=== PATIENT | female | born 1955 | race Caucasian/White ===

== ENCOUNTER 2023-04-24 15:55 | Emergency (ER) | payer OTHER, SELFPAY ==
[2023-04-24 16:08] VITALS: BP 175/96; PULSE 106; RESP 18; TEMP 36.3; O2SAT 96; BMI 62.3
[2023-04-24 16:49] LABS: Basophils # 0.1 10^3/uL (0.0-0.1); Basophils % 0.4 %; Eosinophils # 0.1 10^3/uL (0.0-0.8); Hematocrit 43.4 % (36-47); Lymphocytes # 1.3 10^3/uL (0.8-4.8); Lymphocytes % 10.9 %; Mean Corpuscular HGB Conc 30.6 g/dL (30-55); Mean Corpuscular Hemoglobin 26.7 pg (27-33); Mean Corpuscular Volume 87.1 fl (85-98); Mean Platelet Volume 10.2 fL (7.4-10.4); Monocytes # 0.8 10^3/uL (0.2-0.9); Neutrophils # 9.23 10^3/uL (1.8-7.7); Neutrophils % 80.3 %; Nucleated Red Blood Cells % 0 %; Platelet Count 249 10^3/cmm (157-399); Red Blood Count 4.98 10^6/uL (3.85-5.65); Red Cell Distribution Width 17.4 % (12.1-15.1)
[2023-04-24 17:06] LABS: Alanine Aminotransferase 12 U/L (0-33); Albumin Level 3.6 g/dL (3.5-5.2); Alkaline Phosphatase 128 U/L (35-105); Anion Gap 14.5 (5-19); Aspartate Amino Transferase 14 U/L (0-32); Blood Urea Nitrogen 17 mg/dL (8-23); Calcium 9.6 mg/dL (8.5-10.5); Carbon Dioxide 28 mmol/L (22-29); Chloride 101 mmol/L (98-107); Globulin 3.3 g/dL (1.3-4.6); Glomerular Filtration Rate 71.3 mL/min (90-130); Glucose 149 mg/dL (65-115); Osmolality Calculated 292 mOsm/kg (285-295); Potassium 4.5 mmol/L (3.5-5.1); Sodium 139 mmol/L (136-145); Total Bilirubin 0.6 mg/dL (0.15-1.2); Total Protein 6.9 g/dL (6.6-8.7)
[2023-04-24 18:23] LABS: NT Pro B Type Natriuretic Pept 1301 pg/mL (0-125)
--- NOTE | 2023-04-24 19:18 | XRR_ITS ---
PROCEDURE INFORMATION: Exam: XR Chest Exam date and time: 04/24/2023 7:24 PM Age: 68 years old Clinical indication: Other: Ble edema; Additional info: Cough TECHNIQUE: Imaging protocol: Radiologic exam of the chest. Views: 1 view. COMPARISON: No relevant prior studies available. FINDINGS: Lungs: Both lungs demonstrate chronic interstitial coarsening. There is patchy atelectasis involving both lung bases. Pleural spaces: Unremarkable. No pleural effusion. No pneumothorax. Heart/Mediastinum: Prominent cardiomegaly is noted. Bones/joints: Unremarkable. XR/XR chest 1V portable [id number] IMPRESSION: Bibasilar atelectasis with cardiomegaly.
--- NOTE | 2023-04-24 19:46 | USR_ITS ---
PROCEDURE INFORMATION: Exam: US Duplex Lower Extremity Veins, Bilateral Exam date and time: 04/24/2023 8:09 PM Age: 68 years old Clinical indication: Edema, localized; Lower extremity, bilateral; Patient HX: Morbid obesity. C/O chronic bilateral lower extremity edema with gaiter zone pigmentation and skin pustules and sking thickening. ; Additional info: Edema, erythema, pain, noncompliant with anticoagulation TECHNIQUE: Imaging protocol: Real-time duplex ultrasound of the bilateral extremities with 2-D mello scale, color Doppler flow and spectral waveform analysis including responses to compression and other maneuvers (when performed) with image documentation. Complete exam focused on the lower extremity veins. COMPARISON: No relevant prior studies available. FINDINGS: Right deep veins: Unremarkable. The common femoral, femoral, proximal profunda femoral and popliteal veins are patent without thrombus. Normal Doppler waveforms. Normal compressibility and/or augmentation response. Left deep veins: Unremarkable. The common femoral, femoral, proximal profunda femoral and popliteal veins are patent without thrombus. Normal Doppler waveforms. Normal compressibility and/or augmentation response. Superficial veins: Bilateral saphenofemoral junctions are patent without thrombus. Soft tissues: Unremarkable. US/[place] [id number] IMPRESSION: No evidence of deep vein thrombosis.
--- NOTE | 2023-04-24 19:50 | W.ED.EXTPRO ---
HPI - Extremity Problem General: Chief complaint: Extremity Injury, Lower Stated complaint: adechandni sent from dr office Time Seen by Provider: 04/24/23 19:18 History of Present Illness: Patient presents to the ER with complaints of bilateral lower extremity swelling. Patient states she went to her new primary care doctor today and she took 1 look at her legs and sent her over here because they were grossly edematous and cellulitic in appearance. Patient says she is recently gained about 30 pounds over the last 3 weeks. Patient is on Bumex. Patient has not been taking any of her other medicines which includes Eliquis for her A-fib. Patient says she is been out of all of her medicines except her Bumex for approximately 6 months. Patient does states she has been taking her Bumex consistently and it does make her pee however she has been increasingly gaining weight and fluid in her bilateral lower extremities. Review of Systems General: Reports: 10 or more systems reviewed and unremarkable except in HPI and below Physical Exam Const: COMMON NORMALS: no acute distress, average body habitus, patient oriented x3, no limitations, healthy appearing, alert and well nourished HENMT: COMMON NORMALS: normocephalic, atraumatic, hearing grossly normal bilaterally, external ears normal, Normal external nose present, moist oral mucous membranes and oropharynx normal HEAD & SCALP: normocephalic and atraumatic NOSE: Normal external nose present EXTERNAL EAR: Yes external ears normal Neck/C-Spine: COMMON NORMALS: full ROM, no lymphadenopathy, supple, no meningeal signs, no JVD and Thyroid normal THYROID: Thyroid normal Chest: COMMONS NORMALS: normal inspection of the chest and normal palpation of entire chest wall Resp: COMMON NORMALS: normal respiratory effort, No retractions, No use of accessory muscles and clear to auscultation bilaterally AUSCULTATION: clear to auscultation bilaterally Cardio: COMMON NORMALS: no JVD, regular rate, regular rhythm, S1 normal heart sound present, S2 normal heart sound present, No gallops present (Cardio), No clicks present (Cardio), No murmurs present (Cardio) and No rub (Cardio) RATE: regular rate RHYTHM: regular rhythm HEART SOUNDS: S1 normal heart sound present and S2 normal heart sound present GI: COMMON NORMALS: Normal to inspection, nondistended, normoactive bowel sounds present, Soft to palpation, non-tender, No hepatosplenomegaly present and no masses PALPATION: Yes Soft to palpation and Yes No hepatosplenomegaly present Extremity: NARRATIVE EXTREMITY EXAM: Grossly edematous with pitting edema all the way up past her knees, skin is dry scaly and ready in color consistent with extensive peripheral vascular disease skin is not warm to the touch does not give a cellulitic type appearance there is no drainage streaking or blisters. Neuro: COMMON NORMALS: patient oriented x3 SENSORIUM/ORIENTATION: Yes alert MENINGEAL SIGNS: Yes no meningeal signs Course Vital Signs: Vital signs: Vital Signs Temperature 97.4 F L 04/24/23 16:08 Pulse Rate 111 H 04/24/23 21:43 Respiratory Rate 18 04/24/23 16:08 Blood Pressure 187/128 04/24/23 21:43 Pulse Oximetry 94 04/24/23 21:43 Oxygen Delivery Me thod Room Air 04/24/23 21:43 MDM - Extremity (Nontraumatic) Medical Decision Making Patient was evaluated and worked up with lab work included CBC CMP BNP chest x-ray venous Doppler, patient was given 40 mg Lasix p.o. and diuresed quite well. CBC, CMP, magnesium, was all essentially benign. Patient's BNP was slightly elevated at 1301. TSH 5.58, CRP 52.6, chest x-ray showed bibasilar atelectasis venous ultrasound was negative for DVTs. Patient will be placed back on her Eliquis levothyroxine we will add metolazone and metoprolol and she is to continue her Bumex. Patient should follow-up with her family practice physician within the next 7 days for further evaluation and treatment. Differential Diagnosis Likely lower extremity edema; Unlikely herpes zoster, gout, cellulitis, superficial thrombophlebitis, deep venous thrombosis of upper extremity or deep vein thrombosis of lower extremity Medical Records I reviewed the patient's medical records. Lab Data I reviewed the patient's lab results. 04/24/23 16:29 04/24/23 16:29 Radiology Impressions Chest X-Ray 04/24/23 19:18 IMPRESSION: Bibasilar atelectasis with cardiomegaly. Venous Duplex 04/24/23 19:46 IMPRESSION: No evidence of deep vein thrombosis. Laboratory Results WBC 11.50 10^3/uL (3.29-11.43) H 04/24/23 16: RBC 4.98 10^6/uL (3.85-5.65) 04/24/23 16: Hgb 13.30 g/dL (11.27-16.99) 04/24/23 16: Hct 43.4 % (36-47) 04/24/23 16: MCV 87.1 fl (85-98) 04/24/23 16: MCH 26.7 pg (27-33) L 04/24/23 16: MCHC 30.6 g/dL (30-55) 04/24/23 16: RDW 17.4 % (12.1-15.1) H 04/24/23 16: Plt Count 249 10^3/cmm (157-399) 04/24/23 16: MPV 10.2 fL (7.4-10.4) 04/24/23 16: Neut % (Auto) 80.3 % 04/24/23 16: Lymph % (Auto) 10.9 % 04/24/23 16: [place] % (Auto) 7.0 % 04/24/23 16: Eos % (Auto) 1.0 % 04/24/23 16: Baso % (Auto) 0.4 % 04/24/23 16: Neut # (Auto) 9.23 10^3/uL (1.8-7.7) H 04/24/23 16: Lymph # (Auto) 1.3 10^3/uL (0.8-4.8) 04/24/23 16: [place] # (Auto) 0.8 10^3/uL (0.2-0.9) 04/24/23 16: Eos # (Auto) 0.1 10^3/uL (0.0-0.8) 04/24/23 16: Baso # (Auto) 0.1 10^3/uL (0.0-0.1) 04/24/23 16: Nucleated RBC % (auto) 0 % 04/24/23 16: Nucleated RBCs # 0.0 /100WBC 04/24/23 16: Sodium 139 mmol/L (136-145) 04/24/23 16:29 Potassium 4.5 mmol/L (3.5-5.1) 04/24/23 16:29 Chloride 101 mmol/L (98-107) 04/24/23 16:29 Carbon Dioxide 28 mmol/L (22-29) 04/24/23 16:29 Anion Gap 14.5 (5-19) 04/24/23 16:29 BUN 17 mg/dL (8-23) 04/24/23 16:29 Creatinine 0.8 mg/dL (0.5-0.9) 04/24/23 16:29 GFR Calculation 71.3 mL/min (90-130) L 04/24/23 16:29 Glucose 149 mg/dL (65-115) H 04/24/23 16:29 Calculated Osmolality 292 mOsm/kg (285-295) 04/24/23 16:29 Calcium 9.6 mg/dL (8.5-10.5) 04/24/23 16:29 Magnesium 2.1 mg/dL (1.7-2.3) 04/24/23 16:29 Total Bilirubin 0.6 mg/dL (0.15-1.2) 04/24/23 16:29 AST 14 U/L (0-32) 04/24/23 16:29 ALT 12 U/L (0-33) 04/24/23 16:29 Alkaline Phosphatase 128 U/L (35-105) H 04/24/23 16:29 C-Reactive Protein 52.6 mg/L (0.0-4.9) H 04/24/23 16:29 NT-Pro-B Natriuret Pep 1301 pg/mL (0-125) H 04/24/23 16:29 Total Protein 6.9 g/dL (6.6-8.7) 04/24/23 16:29 Albumin 3.6 g/dL (3.5-5.2) 04/24/23 16: Globulin 3.3 g/dL (1.3-4.6) 04/24/23 16:29 TSH 5.58 uIU/mL (0.27-4.20) H 04/24/23 16:29 All radiology interpretation(s) finalized by discharge EKG Data EKG 1: I personally reviewed and interpreted this EKG as follows: EKG interpretation date: 04/24/23 EKG interpretation time: 20:02 Prior EKG tracings: not available for review Interpretation: EKG showed ventricular rate 97 bpm, QRS duration 109, QTc 425, atrial flutter/tachycardia, incomplete right bundle branch block, Discharge Plan Discharge Patient Disposition: Home Clinical Impression: Bilateral edema of lower extremity, Noncompliance with medications Atrial flutter Qualifiers: Atrial flutter type: unspecified Qualified Code(s): I48.92 - Unspecified atrial flutter CHF (congestive heart failure) Qualifiers: Heart failure type: unspecified Heart failure chronicity: chronic Qualified Code(s): I50.9 - Heart failure, unspecified Hypothyroidism Qualifiers: Hypothyroidism type: unspecified Qualified Code(s): E03.9 - Hypothyroidism, unspecified Condition: Stable Prescriptions: New Eliquis 5 mg tablet 5 mg PO BID Qty: 60 0RF levothyroxine 75 mcg tablet 75 mcg PO DAILY Qty: 30 0RF metolazone 5 mg tablet 5 mg PO DAILY Qty: 30 0RF metoprolol succinate 50 mg tablet extended release 24 hr 50 mg PO DAILY Qty: 30 0RF Continued bumetanide 2 mg tablet 4 mg PO QAM Discontinued levothyroxine 75 mcg tablet 75 mcg PO QAM Eliquis 5 mg Tablet 5 mg PO BID No Action atorvastatin 80 mg Tablet 80 mg PO DAILY cetirizine 10 mg tablet 10 mg PO DAILY baclofen 10 mg tablet 10 mg PO BEDTIME albuterol sulfate 90 mcg/actuation Hfa Aerosol Inhaler 2 puff INHALATION Q6H PRN (Reason: Shortness Of Breath) ketoconazole 2 % cream 1 applic TOPICAL BID Flonase 50 mcg/actuation [place],Suspension 1 spray INTRANASAL DAILY Rx Instructions: administer into each nostril Flovent HFA 110 mcg/actuation Hfa Aerosol Inhaler 2 puff INHALATION BID Discharge Orders: Discharge ED (Routine); Ordered 04/24/23 Ordered By: Ned Munoz Referrals: Khanh Catherine MD [Primary Care Provider] - 1 week Patient Instructions: Hypertension, Hypothyroidism, Atrial Flutter (DC), Edema (ED) Activity Restrictions/Additional Instructions: Please take all your medicine as directed. You have 2 new medicines that are metolazone a diuretic and metoprolol a heart rate/blood pressure medicine. Please follow-up with your family practice doctor within the next 7 days for further evaluation and treatment. Coding Level of Care Code ED Pearl Peller for Jeanette Danielson
[2023-04-24 19:56] LABS: C Reactive Protein 52.6 mg/L (0.0-4.9)
[2023-04-24] MEDS: FUROsemide 40 mg Tablet PO (19:57)
--- NOTE | 2023-04-24 20:02 | ECG_ITS ---
[facility] Test Date: 2023-04-24 Pat Name: Odalis Bird Department: Room: Gender: Female Division Supervisor: : 1955 Requested By: Ned Munoz Order Number: [id number] Wai MD: Warner Ibanez M.D. Measurements Intervals [place] Rate: 97 P: 0 MA: 0 QRS: -11 QRSD: 109 T: 242 QT: 370 QTc: 471 Interpretive Statements ATRIAL FLUTTER INCOMPLETE RIGHT BUNDLE BRANCH BLOCK [90+ ms QRS DURATION, TERMINAL R IN V1/V2, 40+ ms S IN I/aVL/V4/V5/V6] POSSIBLE ANTERIOR MYOCARDIAL INFARCTION , OF INDETERMINATE AGE [30 ms Q WAVE IN V3/V4, OR R < 0.2 mV IN V4] MODERATE T-WAVE ABNORMALITY, CONSIDER INFERIOR ISCHEMIA [-0.1+ mV T-WAVE IN II/aVF] No previous ECG available for comparison Electronically Signed On 04-25-2023 18:33:05 SILVERING DEPARTMENT SUPERVISOR by Warner Ibanez M.D. [id number]
[2023-04-24 20:34] LABS: Magnesium 2.1 mg/dL (1.7-2.3); Thyroid Stimulating Hormone 5.58 uIU/mL (0.27-4.20)
[2023-04-24 20:44] VITALS: BP 151/101; PULSE 97; O2SAT 97
[2023-04-24 21:00] VITALS: BP 138/95; PULSE 98; O2SAT 98
[2023-04-24 21:43] VITALS: BP 187/128; PULSE 111; O2SAT 94
[2023-04-24 22:37] VITALS: BP 159/117; PULSE 97; RESP 18; O2SAT 94
[2023-04-24 22:48] VITALS: BP 159/117
[2023-04-24] MEDS: cloNIDine 0.1 mg Tablet 0.2 MG PO (22:48)
== END 2023-04-24 22:54 | disposition home or self-care (01) ==
PROVIDERS: Emergency Medicine; Emergency Provider Emergency Medicine; Family Provider Family Medicine; PCP Family Medicine
DX: R60.0 Localized edema (principal); I48.92 Unspecified atrial flutter; E03.9 Hypothyroidism, unspecified; I50.9 Heart failure, unspecified; Z91.148 Patient's other noncompliance with medication regimen for other reason
CPT/HCPCS: 36415; 71045; 80053; 83735; 83880; 84443; 85025; 86140; 93005; 93970; 99285

== ENCOUNTER → 2023-06-14 10:52 | Outpatient (BNVA) | payer OTHER, SELFPAY | PROVIDERS: Family Provider Family Medicine; PCP Family Medicine; Visit Provider Podiatrist Foot & Ankle Surgery | DX: L60.3 Nail dystrophy (principal); I73.9 Peripheral vascular disease, unspecified; I89.0 Lymphedema, not elsewhere classified | CPT/HCPCS: 11721; 99203 ==

== ENCOUNTER → 2023-10-04 15:58 | Outpatient (BNVA) | payer OTHER, SELFPAY | PROVIDERS: Family Provider Family Medicine; PCP Family Medicine; Visit Provider Internal Medicine Cardiovascular Disease | DX: R06.02 Shortness of breath (principal); R07.9 Chest pain, unspecified; I48.91 Unspecified atrial fibrillation; I11.0 Hypertensive heart disease with heart failure; I50.9 Heart failure, unspecified; I89.0 Lymphedema, not elsewhere classified; E03.9 Hypothyroidism, unspecified; R60.0 Localized edema; F17.200 Nicotine dependence, unspecified, uncomplicated; I45.10 Unspecified right bundle-branch block; R94.31 Abnormal electrocardiogram [ECG] [EKG]; Z68.43 Body mass index [BMI] 50.0-59.9, adult | CPT/HCPCS: 36415; 80048; 83880; 93005; 99205 ==

== ENCOUNTER 2023-10-23 12:47 | Emergency (ER) | payer OTHER, SELFPAY ==
[2023-10-23 12:53] VITALS: BP 128/66; PULSE 71; RESP 17; TEMP 36.8; O2SAT 92; BMI 53.9
--- NOTE | 2023-10-23 13:02 | ED_ITS ---
HPI - Extremity Problem 2 General: Chief complaint: Extremity Problem,Nontraumatic Stated complaint: swollen legs Time Seen by Provider: 10/23/23 13:00 Source: patient Mode of arrival: wheelchair Limitations: no limitations History of Present Illness: Patient is a 68-year-old female with extensive past medical history here for complaints of lymphedema to her bilateral legs. She states they are now weeping and she complains of pain. She has a longstanding history of peripheral vascular disease, venous stasis dermatitis, and lymphedema. She was seen by Dr. Goodman elmore in May with foot complaints. Documentation at that time had recommended lymphedema wraps, elevation, and pneumatic compression devices which she stated she has. Patient tells me she has not been doing these because they do not help . She saw her scientist immunology Dr. Dumont earlier this month. Documentation had recommended possible physical therapy to help with her lymphedema but she has not followed up on this either. Patient is morbidly obese with a weight of almost 300 pounds. She is pretty much non-ambulatory and uses a motorized wheelchair. Can transfer/walk small distances if she holds on to something. She arrives in [facility] with stable vital signs. MD Complaint: extremity pain and extremity swelling Onset (ago): month(s) Pain Consistency: constant Location: left, right and lower extremity Radiation: none Relieving factors: nothing Exacerbating factors: nothing Associated symptoms: Reports no associated symptoms; Deny chest pain or fever(s) Context: immobilization Review of Systems 2 Const: Denies: fever(s), chills, body aches, fatigue or malaise Card: Denies: chest pain Resp: Denies: dyspnea Musc: Reports: extremity pain and extremity swelling; Denies: neck pain or back pain Neuro: Reports: sensory changes (bilateral LE-chronic) and difficulty walking (chronic) PFSH ED 2 PFSH: Family History Mother Stroke Father Stroke Brother Diabetes mellitus, type 2 Cancer Social History Smoking and tobacco/nicotine status: current some day tobacco/nicotine user Adopted: No Number of children: 4 Physical Exam 2 Const: COMMON NORMALS: no acute distress, patient oriented x3, no limitations and alert GENERAL APPEARANCE: cooperative NUTRITIONAL APPEARANCE: obese morbidly obese (BMI is 54.0) Resp: COMMON NORMALS: normal respiratory effort and clear to auscultation bilaterally AUSCULTATION: clear to auscultation bilaterally Cardio: COMMON NORMALS: regular rate and regular rhythm RATE: regular rate RHYTHM: regular rhythm Extremity: COMMON NORMALS: capillary refill normal RIGHT LOWER EXTREMITY: Y es lower leg LEFT LOWER EXTREMITY: Yes lower leg OTHER: pt has significant stage III lymphedema to bilateral lower extremities; she has known PVD with chronic stasis dermatitis changes; skin is ruborous, hypertrophic; she has areas of weeping mainly to left lower leg; there does not appear to be any active infection or cellulitis present Neuro: COMMON NORMALS: patient oriented x3 SENSORIUM/ORIENTATION: Yes alert Course 2 Vital Signs: Vital signs: Vital Signs Temperature 98.2 F 10/23/23 12:53 Pulse Rate 61 10/23/23 14:01 Respiratory Rate 18 10/23/23 14:01 Blood Pressure 135/78 10/23/23 14:01 Pulse Oximetry 93 10/23/23 14:01 Oxygen Delivery Me thod Room Air 10/23/23 14:01 MDM - Extremity (Nontraumatic) Medical Decision Making Patient is a 68-year-old female here for worsening lymphedema to her bilateral lower extremities. She has a longstanding history of this. She has been recommended to use her pneumatic compression devices as well as wrap and elevate the extremities but she does not do any of this. She unfortunately is very sedentary mainly confined to a motorized wheelchair. This is worsened by her morbid obesity and baseline dependent edema. She has been told she has a history of CHF although after meeting with cardiology earlier this month there was no documentation of this. She does states she has an echocardiogram scheduled by them for tomorrow. Clinically she has chronic findings to her legs. There is nothing that appears cellulitic at this time. Her blood work showing a potassium of 2.9. She was 2.7 earlier this month. She states she is taking 1 potassium pill twice daily. Will increase this to 2 tabs twice daily. Her BUN/CR is slightly elevated from labs drawn on 10/03. They were 22/1.0 then. She is 24/1.3 now. She is on several possibly nephrotoxic medications including atorvastatin, bumex, metolazone. I did speak to her scientist immunology Dr. Dumont who felt we could decrease her bumex as her BNP is is only 193 today and has not changed significantly since he saw her. Questions whether she actually does have CHF-ultimately needs the echo tomorrow. Recommend follow up with PCP. I did see about having CM here set her up with physical therapy for lymphedema compressive therapy and wraps. She has also spoken to primary care about home health services to help wrap her legs as well. Do not see any indication for hospitalization at this time. Medical Records I reviewed the patient's medical records. Lab Data I reviewed the patient's lab results. 10/23/23 13:07 10/23/23 13:07 Radiology Impressions Chest X-Ray 10/23/23 13:03 IMPRESSION: 1. Cardiomediastinal silhouette is midline and questionably enlarged, stable. 2. No large focal consolidation. Laboratory Results WBC 14.85 10^3/uL (3.29-11.43) H 10/23/23 13:07 RBC 4.51 10^6/uL (3.85-5.65) 10/23/23 13:07 Hgb 13.10 g/dL (11.27-16.99) 10/23/23 13:07 Hct 40.2 % (36-47) 10/23/23 13:07 MCV 89.1 fl (85-98) 10/23/23 13:07 MCH 29.0 pg (27-33) 10/23/23 13:07 MCHC 32.6 g/dL (30-55) 10/23/23 13:07 RDW 16.6 % (12.1-15.1) H 10/23/23 13:07 Plt Count 342 10^3/cmm (157-399) 10/23/23 13:07 MPV 9.4 fL (7.4-10.4) 10/23/23 13:07 Neut % (Auto) 78.6 % 10/23/23 13:07 Lymph % (Auto) 12.1 % 10/23/23 13:07 [place] % (Auto) 6.4 % 10/23/23 13:07 Eos % (Auto) 1.4 % 10/23/23 13:07 Baso % (Auto) 0.4 % 10/23/23 13:07 Neut # (Auto) 11.66 10^3/uL (1.8-7.7) H 10/23/23 13:07 Lymph # (Auto) 1.8 10^3/uL (0.8-4.8) 10/23/23 13:07 [place] # (Auto) 1.0 10^3/uL (0.2-0.9) H 10/23/23 13:07 Eos # (Auto) 0.2 10^3/uL (0.0-0.8) 10/23/23 13:07 Baso # (Auto) 0.1 10^3/uL (0.0-0.1) 10/23/23 13:07 Nucleated RBC % (auto) 0 % 10/23/23 13:07 Nucleated RBCs # 0.0 /100WBC 10/23/23 13:07 Sodium 133 mmol/L (136-145) L 10/23/23 13:07 Potassium 2.9 mmol/L (3.5-5.1) L 10/23/23 13:07 Chloride 89 mmol/L (98-107) L 10/23/23 13:07 Carbon Dioxide 30 mmol/L (22-29) H 10/23/23 13:07 Anion Gap 16.9 (5-19) 10/23/23 13:07 BUN 24 mg/dL (8-23) H 10/23/23 13:07 Creatinine 1.3 mg/dL (0.5-0.9) H 10/23/23 13:07 GFR Calculation 40.7 mL/min (90-130) L 10/23/23 13:07 Glucose 121 mg/dL (65-115) H 10/23/23 13:07 Calculated Osmolality 281 mOsm/kg (285-295) L 10/23/23 13:07 Calcium 9.7 mg/dL (8.5-10.5) 10/23/23 13:07 Total Bilirubin 0.2 mg/dL (0.15-1.2) 10/23/23 13:07 AST 12 U/L (0-32) 10/23/23 13:07 ALT 12 U/L (0-33) 10/23/23 13:07 Alkaline Phosphatase 116 U/L (35-105) H 10/23/23 13:07 C-Reactive Protein 68.9 mg/L (0.0-4.9) H 10/23/23 13:07 NT-Pro-B Natriuret Pep 193 pg/mL (0-125) H 10/23/23 13:07 Total Protein 7.7 g/dL (6.6-8.7) 10/23/23 13:07 Albumin 3.5 g/dL (3.5-5.2) 10/23/23 13:07 Globulin 4.2 g/dL (1.3-4.6) 10/23/23 13:07 All radiology interpretation(s) finalized by discharge Discharge Plan Discharge Patient Disposition: Home Clinical Impression: Stasis dermatitis, Lymphedema Condition: Stable Prescriptions: Continued bumetanide 2 mg tablet 4 mg PO QAM Qty: 20 0RF Changed potassium chloride 20 mEq tablet extended release 40 meq PO BID MDD 100 mEq Qty: 60 0RF No Action atorvastatin 80 mg Tablet 80 mg PO DAILY cetirizine 10 mg tablet 10 mg PO DAILY baclofen 10 mg tablet 10 mg PO BEDTIME albuterol sulfate 90 mcg/actuation Hfa Aerosol Inhaler 2 puff INHALATION Q6H PRN (Reason: Shortness Of Breath) Flonase 50 mcg/actuation [place],Suspension 1 spray INTRANASAL DAILY Rx Instructions: administer into each nostril Flovent HFA 110 mcg/actuation Hfa Aerosol Inhaler 2 puff INHALATION BID Eliquis 5 mg tablet 5 mg PO BID Qty: 60 0RF levothyroxine 75 mcg tablet 75 mcg PO DAILY Qty: 30 0RF metolazone 5 mg tablet 5 mg PO DAILY Qty: 30 0RF metoprolol succinate 50 mg tablet extended release 24 hr 50 mg PO DAILY Qty: 30 0RF Discharge Orders: Discharge ED (Routine); Ordered 10/23/23 Ordered By: Nova Jackson Referrals: Khanh Catherine MD [Primary Care Provider] - Patient Instructions: Lymphedema, Leg Edema (ED) Activity Restrictions/Additional Instructions: As we discussed I will try to have case management work on getting you set up with physical therapy for lymphedema compression therapy and wraps. You can also continue to speak to your primary care provider about home health services. As we discussed I would like you to decrease your Bumex from 4 Mg daily to 2 Mg daily. I am also increasing your potassium. You need to follow-up with primary care next week so they can repeat your kidney functions and potassium. You stated you have an echocardiogram scheduled for tomorrow that was ordered by Dr. Dumont for evaluation of CHF. I recommend you get this exam completed. Coding Level of Care Code ED Chucking Machine Set Up Operator for Jeaentte Danielson
--- NOTE | 2023-10-23 13:03 | XRR_ITS ---
PROCEDURE INFORMATION: Exam: XR Chest Exam date and time: 10/23/2023 1:10 PM Age: 68 years old Clinical indication: Other: Ble edema; Additional info: Leg swelling TECHNIQUE: Imaging protocol: Radiologic exam of the chest. Views: 1 view. COMPARISON: CR XR chest 1V portable [id number] 04/24/2023 7:24 PM FINDINGS: Lungs: No large focal consolidation. Pleural spaces: No large pleural effusion. No distinct pneumothorax. Heart/Mediastinum: Cardiomediastinal silhouette is midline and questionably enlarged, stable. Vasculature: Mild calcific disease of the aorta. Bones/joints: No acute osseous findings. XR/XR chest 1V portable [id number] IMPRESSION: 1. Cardiomediastinal silhouette is midline and questionably enlarged, stable. 2. No large focal consolidation.
[2023-10-23 13:12] LABS: Basophils # 0.1 10^3/uL (0.0-0.1); Basophils % 0.4 %; Eosinophils # 0.2 10^3/uL (0.0-0.8); Eosinophils % 1.4 %; Hematocrit 40.2 % (36-47); Lymphocytes # 1.8 10^3/uL (0.8-4.8); Lymphocytes % 12.1 %; Mean Corpuscular HGB Conc 32.6 g/dL (30-55); Mean Corpuscular Volume 89.1 fl (85-98); Mean Platelet Volume 9.4 fL (7.4-10.4); Monocytes % 6.4 %; Neutrophils # 11.66 10^3/uL (1.8-7.7); Neutrophils % 78.6 %; Nucleated Red Blood Cells % 0 %; Platelet Count 342 10^3/cmm (157-399); Red Blood Count 4.51 10^6/uL (3.85-5.65); Red Cell Distribution Width 16.6 % (12.1-15.1); White Blood Count 14.85 10^3/uL (3.29-11.43)
[2023-10-23 13:40] LABS: Alanine Aminotransferase 12 U/L (0-33); Albumin Level 3.5 g/dL (3.5-5.2); Alkaline Phosphatase 116 U/L (35-105); Anion Gap 16.9 (5-19); Aspartate Amino Transferase 12 U/L (0-32); Blood Urea Nitrogen 24 mg/dL (8-23); Calcium 9.7 mg/dL (8.5-10.5); Carbon Dioxide 30 mmol/L (22-29); Chloride 89 mmol/L (98-107); Creatinine Clr Calc Pharmacy 54.6511; Globulin 4.2 g/dL (1.3-4.6); Glomerular Filtration Rate 40.7 mL/min (90-130); Glucose 121 mg/dL (65-115); NT Pro B Type Natriuretic Pept 193 pg/mL (0-125); Osmolality Calculated 281 mOsm/kg (285-295); Sodium 133 mmol/L (136-145); Total Bilirubin 0.2 mg/dL (0.15-1.2); Total Protein 7.7 g/dL (6.6-8.7)
[2023-10-23 13:42] LABS: Potassium 2.9 mmol/L (3.5-5.1)
[2023-10-23] MEDS: potassium chloride ER 20 mEq Tablet 40 MEQ PO (14:00)
[2023-10-23 14:01] VITALS: BP 135/78; PULSE 61; RESP 18; O2SAT 93
[2023-10-23 14:01] LABS: C Reactive Protein 68.9 mg/L (0.0-4.9)
--- NOTE | 2023-10-23 14:12 | DCPLANNER ---
sent message to PT for er f/u
[2023-10-23 14:46] VITALS: BP 141/70; PULSE 61; RESP 18; O2SAT 91
--- NOTE | 2023-10-23 14:46 | PC.NURSE ---
Per provider, abd pads to the left leg x 2 and wrapped bilat legs with 6in prashant wraps.
== END 2023-10-23 14:49 | disposition home or self-care (01) ==
PROVIDERS: Emergency Medicine; Emergency Provider Physician Assistant; PCP Family Medicine
DX: I89.0 Lymphedema, not elsewhere classified (principal); I87.2 Venous insufficiency (chronic) (peripheral); Z79.01 Long term (current) use of anticoagulants; Z72.0 Tobacco use
CPT/HCPCS: 36415; 71045; 80053; 83880; 85025; 86140; 99284

== ENCOUNTER → 2023-11-06 14:33 | Outpatient (BNVA) | payer MEDICARE, SELFPAY | PROVIDERS: PCP Family Medicine; Visit Provider Internal Medicine Critical Care Medicine | DX: I10 Essential (primary) hypertension (principal) | CPT/HCPCS: 36415; 80048 ==

== ENCOUNTER 2023-12-21 11:37 | Outpatient (CLI) | payer MEDICARE, SELFPAY ==
--- NOTE | 2023-12-21 12:15 | USCV_ITS ---
Odalis Bird Age: 68 Gender: F : 1955 Exam Date: 12/21/2023 11:51 Ordering Phys: Alin Dumont MD ([email or web address]) Technologist: Klarissa Cool [place] [facility] [place]: SOB and question of Murmur BP: / HR: 62 Rhythm: Sinus Technical Quality: Very technically difficult study, Poor because of body habitus MEASUREMENTS (Male / Female) Normal Values 2D ECHO LV Diastolic Diameter PLAX 4.0 cm 4.2 - 5.9 / 3.9 - 5.3 cm IVS Diastolic Thickness 1.4 cm 0.6 - 1.0 / 0.6 - 0.9 cm IVS Systolic Thickness 2.6 cm LVPW Diastolic Thickness 1.4 cm 0.6 - 1.0 / 0.6 - 0.9 cm LVPW Systolic Thickness 1.5 cm LVOT Diameter 2.2 cm LV Ejection Fraction 2D Teich 31.5 % LV Ejection Fraction MOD 4C 50.7 % LA Diameter 2.8 cm RA Systolic Volume 4C AL 97.5 ml RA Systolic Volume 4C MOD 90.0 ml LA Sys Volume AL 32.9 cm cubed LA Sys Volume Index AL 13.1 cm cubed/m squared Aorta at Sinotubular Diameter 3.3 cm IVC Diameter 1.5 cm M-MODE LA Ao Ratio MM 0.9 AV Cusp Separation MM 1.9 cm DOPPLER AV Peak Velocity 153.7 cm/s LVOT Peak Velocity 81.0 cm/s AV Area Cont Eq vti 2.0 cm squared AV Area Cont Eq pk 2.0 cm squared MV Area PHT 5.8 cm squared Mitral E to A Ratio 0.9 TV Peak Velocity 155.3 cm/s TR Peak Velocity 183.0 cm/s TR Peak Gradient 13.4 mmHg TR Mean Velocity 121.0 cm/s TR Mean Gradient 6.9 mmHg TR Velocity Time Integral 45.7 cm TV Peak E Velocity 77.0 cm/s Right Atrial Pressure 3.0 mmHg Pulmonary Artery Systolic Pressu 16.4 mmHg FINDINGS Left Ventricle Normal left ventricular size and systolic function, EF 65%, visual.moderate left ventricular hypertrophy. Right Ventricle Possibly of normal size and ejection fraction Right Atrium Right atrium not well visualized. Left Atrium Possibly of normal size Mitral Valve Trace to mild mitral valve regurgitation. Aortic Valve Aortic valve not well visualized. Tricuspid Valve Tricuspid valve not well visualized. Pulmonic Valve Mild pulmonary valve regurgitation. Pericardium Echo-free space anteriorly, suggesting pericardial fat pad/loculated pericardial effusion Aorta Normal aortic annulus size. IVC Normal inferior vena cava. CONCLUSIONS Normal left ventricular size and systolic function, EF 65%,( visual).. Moderate left ventricular hypertrophy. Mild pulmonary valve regurgitation. Echo-free space anteriorly, suggesting pericardial fat pad/loculated pericardial effusion Possibly normal RV size and ejection fraction. Technically very difficult study because of poor ultrasonic windows Dr Alin Dumont MD FACC (Electronically Signed) Final Date: 29 December 2023 11:23 S
== END 2023-12-21 11:38 | disposition home or self-care (01) ==
LOC: RAD 11:38
PROVIDERS: PCP Nurse Practitioner; Visit Provider Internal Medicine Cardiovascular Disease
DX: I51.7 Cardiomegaly (principal); E65 Localized adiposity; R06.09 Other forms of dyspnea
CPT/HCPCS: 93306

== ENCOUNTER 2024-01-03 13:51 | Outpatient (CLI) | payer MEDICARE, SELFPAY ==
[2024-01-03 14:09] VITALS: PULSE 65; RESP 18; O2SAT 95
[2024-01-03] MEDS: albuterol 2.5 mg/3 mL Neb INHALATION (14:09)
[2024-01-03 14:13] VITALS: PULSE 71
== END 2024-01-03 13:52 | disposition home or self-care (01) ==
PROVIDERS: PCP Nurse Practitioner; Visit Provider Internal Medicine Critical Care Medicine
DX: R06.09 Other forms of dyspnea (principal); J98.4 Other disorders of lung; E66.9 Obesity, unspecified; J44.9 Chronic obstructive pulmonary disease, unspecified; F17.200 Nicotine dependence, unspecified, uncomplicated; I11.0 Hypertensive heart disease with heart failure; I50.9 Heart failure, unspecified; I48.91 Unspecified atrial fibrillation; I48.92 Unspecified atrial flutter; I87.2 Venous insufficiency (chronic) (peripheral); E66.01 Morbid (severe) obesity due to excess calories; Z68.43 Body mass index [BMI] 50.0-59.9, adult; R94.31 Abnormal electrocardiogram [ECG] [EKG]
CPT/HCPCS: 94060; 94729; 99214

== ENCOUNTER 2024-03-13 17:08 | Inpatient (IN) | payer MEDICARE, SELFPAY ==
[2024-03-13 17:19] VITALS: BP 146/83; PULSE 63; RESP 16; TEMP 36.5; O2SAT 94; BMI 52.1
--- NOTE | 2024-03-13 19:21 | XRR_ITS ---
PROCEDURE INFORMATION: Exam: XR Right Tibia and Fibula Exam date and time: 03/13/2024 7:34 PM Age: 69 years old Clinical indication: Other: Cellulitits; Additional info: Cellulitis TECHNIQUE: Imaging protocol: Radiologic exam of the right tibia and fibula. Views: 2 views. COMPARISON: No relevant prior studies available. FINDINGS: Bones/joints: Normal. Soft tissues: Normal. XR/XR tibia fibula RT 2V 07004 IMPRESSION: No acute findings.
--- NOTE | 2024-03-13 19:25 | ED_ITS ---
HPI - Skin/Abscess/Foreign Bdy 2 General: Chief complaint: Skin/Abscess/Foreign Body Stated complaint: rt leg infection Time Seen by Provider: 03/13/24 19:14 Source: patient Mode of arrival: ambulatory Limitations: no limitations History of Present Illness: 69-year-old female who is wheelchair-celeste nd states she has had a wound ongoing to her right leg for the last 3 to 4 weeks states she has had no treatment for it is worsened since been having a foul odor she denies any fever states she has been having some increasing pain has not been on any antibiotics for it. Associated symptoms: Deny chills, fever(s), nausea or vomiting Related Data Home Medications Medication Instructions Recorded Confirmed albuterol sulfate 90 mcg/actuation 2 puff inhalation Q6H PRN 04/24/23 11/06/23 aerosol inhaler Shortness Of Breath atorvastatin 80 mg tablet 80 mg PO DAILY 04/24/23 11/06/23 baclofen 10 mg tablet 10 mg PO BEDTIME 04/24/23 11/06/23 fluticasone propionate 110 2 puff inhalation BID 04/24/23 11/06/23 mcg/actuation HFA aerosol inhaler (Flovent HFA) bumetanide 2 mg tablet 2 mg PO QAM 11/06/23 cetirizine 10 mg tablet 10 mg PO DAILY PRN 11/06/23 11/06/23 fluticasone propionate 50 1 spray intranasal DAILY PRN 11/06/23 11/06/23 mcg/actuation nasal spray,suspension Previous Rx's Medication Instructions Recorded apixaban 5 mg tablet (Eliquis) 5 mg PO BID #60 tabs 04/24/23 levothyroxine 75 mcg tablet 75 mcg PO DAILY #30 tabs 04/24/23 metolazone 5 mg tablet 5 mg PO DAILY #30 tabs 04/24/23 metoprolol succinate 50 mg 50 mg PO DAILY #30 tabs 04/24/23 tablet,extended release 24 hr omeprazole 40 mg capsule,delayed 40 mg PO DAILY GERD #30 caps 11/06/23 release Allergies Allergy/AdvReac Type Severity Reaction Status Date / Time aspirin Allergy ALGY-Anaphy Verified 01/03/24 14:51 laxis nicotine Allergy ALGY-Rash Verified 01/03/24 14:51 Penicillins Allergy ALGY-Rash Verified 01/03/24 14:51 procaine [From Novocain] Allergy ADR-Halluci Verified 01/03/24 14:51 lambert Review of Systems 2 Const: Denies: fever(s), chills, body aches or change in appetite ENMT: Denies: throat pain or dental pain Card: Denies: chest pain Resp: Denies: dyspnea GI: Denies: abdominal pain, nausea, vomiting or diarrhea Musc: Reports: extremity pain and extremity swelling; Denies: neck pain or back pain Skin/Breast: Reports: erythema; Denies: rash Neuro: Denies: headache(s) PFSH ED 2 PFSH: Family History Mother Stroke Aneurysm Father Stroke Brother Diabetes mellitus, type 2 Cancer Social History Smoking and tobacco/nicotine status: current every day tobacco/nicotine user (0.5 ppd) cigarettes Packs smoked per day: 1 Years cigarettes smoked: 55 [ Other cigarette details: Started at age 13] Adopted: No Number of children: 4 Physical Exam 2 Const: COMMON NORMALS: no acute distress, patient oriented x3 and healthy appearing HENMT: COMMON NORMALS: normocephalic and atraumatic HEAD & SCALP: n ormocephalic and atraumatic Neck/C-Spine: COMMON NORMALS: full ROM and supple Chest: COMMONS NORMALS: normal inspection of the chest Resp: COMMON NORMALS: normal respiratory effort, No retractions, No use of accessory muscles and clear to auscultation bilaterally AUSCULTATION: clear to auscultation bilaterally Cardio: COMMON NORMALS: regular rate, regular rhythm and No murmurs present (Cardio) RATE: regular rate RHYTHM: regular rhythm Extremity: NARRATIVE EXTREMITY EXAM: Cellulitis noted over right leg with wound with foul-smelling drainage Neuro: COMMON NORMALS: patient oriented x3, moves all extremities and no focal motor deficits Psych: COMMON NORMALS: mental status grossly normal, Normal thought process present and cooperative THOUGHT PROCESS: Normal thought process present Skin: COMMON NORMALS: no rashes or lesions noted and no wounds GENERAL SKIN EXAM: no rashes or lesions noted Course 2 Vital Signs: Vital signs: Vital Signs Temperature 97.7 F 03/13/24 17:19 Pulse Rate 63 03/13/24 17:19 Respiratory Rate 16 03/13/24 17:19 Blood Pressure 146/83 03/13/24 17:19 Pulse Oximetry 94 03/13/24 17:19 Oxygen Delivery Me thod Room Air 03/13/24 17:19 MDM - Skin/Abscess/Foreign Bdy Medicial Decision Making Patient presents here with cellulitis to her right lower leg superficial wound patient was seen in the ER by podiatry Dr. Mahoney will admit on IV antibiotics Medical Records I reviewed the patient's medical records. Lab Data I reviewed the patient's lab results. 03/13/24 20:10 03/13/24 20:10 Laboratory Results WBC 11.09 10^3/uL (3.29-11.43) 03/13/24 20:10 RBC 4.11 10^6/uL (3.85-5.65) 03/13/24 20:10 Hgb 10.80 g/dL (11.27-16.99) L 03/13/24 20:10 Hct 35.5 % (36-47) L 03/13/24 20:10 MCV 86.4 fl (85-98) 03/13/24 20:10 MCH 26.3 pg (27-33) L 03/13/24 20:10 MCHC 30.4 g/dL (30-55) 03/13/24 20:10 RDW 17.2 % (12.1-15.1) H 03/13/24 20:10 Plt Count 304 10^3/cmm (157-399) 03/13/24 20:10 MPV 9.0 fL (7.4-10.4) 03/13/24 20:10 Neut % (Auto) 75.4 % 03/13/24 20:10 Lymph % (Auto) 14.3 % 03/13/24 20:10 [place] % (Auto) 6.5 % 03/13/24 20:10 Eos % (Auto) 2.4 % 03/13/24 20:10 Baso % (Auto) 0.4 % 03/13/24 20:10 Neut # (Auto) 8.36 10^3/uL (1.8-7.7) H 03/13/24 20:10 Lymph # (Auto) 1.6 10^3/uL (0.8-4.8) 03/13/24 20:10 [place] # (Auto) 0.7 10^3/uL (0.2-0.9) 03/13/24 20:10 Eos # (Auto) 0.3 10^3/uL (0.0-0.8) 03/13/24 20:10 Baso # (Auto) 0.0 10^3/uL (0.0-0.1) 03/13/24 20:10 Nucleated RBC % (auto) 0 % 03/13/24 20:10 Nucleated RBCs # 0.0 /100WBC 03/13/24 20:10 ESR 72 mm/hr (0-15) H 03/13/24 20:10 Sodium 140 mmol/L (136-145) 03/13/24 20:10 Potassium 3.6 mmol/L (3.5-5.1) 03/13/24 20:10 Chloride 97 mmol/L (98-107) L 03/13/24 20:10 Carbon Dioxide 30 mmol/L (22-29) H 03/13/24 20:10 Anion Gap 16.6 (5-19) 03/13/24 20:10 BUN 7 mg/dL (8-23) L 03/13/24 20:10 Creatinine 0.9 mg/dL (0.5-0.9) 03/13/24 20:10 GFR Calculation 62.1 mL/min (90-130) L 03/13/24 20:10 Glucose 154 mg/dL (65-115) H 03/13/24 20:10 Calculated Osmolality 291 mOsm/kg (285-295) 03/13/24 20:10 Calcium 8.9 mg/dL (8.5-10.5) 03/13/24 20:10 Total Bilirubin 0.3 mg/dL (0.15-1.2) 03/13/24 20:10 AST 12 U/L (0-32) 03/13/24 20:10 ALT 9 U/L (0-33) 03/13/24 20:10 Alkaline Phosphatase 118 U/L (35-105) H 03/13/24 20:10 C-Reactive Protein 71.9 mg/L (0.0-4.9) H 03/13/24 20:10 Total Protein 6.3 g/dL (6.6-8.7) L 03/13/24 20:10 Albumin 3.3 g/dL (3.5-5.2) L 03/13/24 20:10 Globulin 3.0 g/dL (1.3-4.6) 03/13/24 20:10 All radiology interpretation(s) finalized by discharge Discharge Plan Discharge Patient Disposition: Admitted As Inpatient Clinical Impression: Cellulitis of leg, right Condition: Stable Prescriptions: No Action bumetanide 2 mg tablet 2 mg PO QAM omeprazole 40 mg capsule,delayed release(DR/EC) 40 mg PO DAILY Qty: 30 1RF atorvastatin 80 mg Tablet 80 mg PO DAILY baclofen 10 mg tablet 10 mg PO BEDTIME albuterol sulfate 90 mcg/actuation Hfa Aerosol Inhaler 2 puff INHALATION Q6H PRN (Reason: Shortness Of Breath) Flovent HFA 110 mcg/actuation Hfa Aerosol Inhaler 2 puff INHALATION BID Eliquis 5 mg tablet 5 mg PO BID Qty: 60 0RF levothyroxine 75 mcg tablet 75 mcg PO DAILY Qty: 30 0RF metolazone 5 mg tablet 5 mg PO DAILY Qty: 30 0RF metoprolol succinate 50 mg tablet extended release 24 hr 50 mg PO DAILY Qty: 30 0RF cetirizine 10 mg tablet 10 mg PO DAILY PRN fluticasone propionate 50 mcg/actuation spray,suspension 1 spray INTRANASAL DAILY PRN Rx Instructions: administer into each nostril Referrals: Sherrell Lakhani FNP [Primary Care Provider] - Patient Instructions: Opioid Safety, Pain Management Coding Level of Care Code ED Paleology Teacher for Jeanette Danielson
[2024-03-13 19:30] VITALS: BP 102/79; PULSE 79; RESP 16; O2SAT 96
[2024-03-13] MEDS: VANCOMYCIN ADD-Vantage 1,000 MG in 0.9% NaCl ADD-Vantage 250 ML 250 MG IV (20:15)
[2024-03-13 20:23] LABS: Basophils % 0.4 %; Eosinophils # 0.3 10^3/uL (0.0-0.8); Eosinophils % 2.4 %; Hematocrit 35.5 % (36-47); Lymphocytes # 1.6 10^3/uL (0.8-4.8); Lymphocytes % 14.3 %; Mean Corpuscular HGB Conc 30.4 g/dL (30-55); Mean Corpuscular Hemoglobin 26.3 pg (27-33); Mean Corpuscular Volume 86.4 fl (85-98); Monocytes # 0.7 10^3/uL (0.2-0.9); Monocytes % 6.5 %; Neutrophils # 8.36 10^3/uL (1.8-7.7); Neutrophils % 75.4 %; Nucleated Red Blood Cells % 0 %; Platelet Count 304 10^3/cmm (157-399); Red Blood Count 4.11 10^6/uL (3.85-5.65); Red Cell Distribution Width 17.2 % (12.1-15.1); White Blood Count 11.09 10^3/uL (3.29-11.43)
[2024-03-13 20:30] VITALS: BP 121/76; PULSE 72; RESP 14; O2SAT 94
--- NOTE | 2024-03-13 20:41 | P.CONIM_ITS ---
Providers/Reason For Consult 2 Consulting Physician/Specialty*: Cindy Zeng.P.M./podiatry Reason for Consult*: Venous stasis/cellulitis Primary Care Provider: URVASHI Galeas History of Present Illness History of Present Illness Odalis Bird is a 69 year old female with history of bilateral lower extremity lymphedema, peripheral vascular disease, stasis dermatitis will also has a history of noncompliance with keeping appointments. Patient states that she does have a history of lymphedema and has received segmental compression devices for bilateral lower extremities. She does not use these at home as she states that her legs are too large for them to fit into. She does not keep up on regular compression therapy at home. She states that approximate 3 to 4 weeks ago that her right leg developed a wound which began to drain and has become increasingly more painful over the course of the past few weeks. She states that once it started to drain they tried to apply compression wraps to no avail. Patient states that the redness and drainage has increased as well as slight odor. Podiatry was consulted to evaluate and provide recommendations. Patient denies any recent constitutional symptoms including nausea or vomiting. Patient is asking about getting a sandwich. Accompanied by son. Review of Systems 2 General: Reports: 10 or more systems reviewed and unremarkable except in HPI and below Const: Denies: fever(s), chills, body aches or change in appetite Eyes: Denies: change in vision or blurry vision Card: Denies: chest pain, palpitations or irregular heart rhythm Resp: Denies: dyspnea GI: Denies: abdominal pain, nausea, vomiting or diarrhea Musc: Reports: joint stiffness Skin/Breast: Reports: non-healing lesions and lesions Neuro: Reports: numbness in extremities Medications/Allergies Home Medications Medication Instructions Recorded Confirmed Last Taken Type albuterol sulfate 90 mcg/actuation 2 puff inhalation Q6H PRN 04/24/23 11/06/23 Unknown History aerosol inhaler Shortness Of Breath apixaban 5 mg tablet (Eliquis) 5 mg PO BID #60 tabs 04/24/23 11/06/23 Unknown Rx atorvastatin 80 mg tablet 80 mg PO DAILY 04/24/23 11/06/23 Unknown History baclofen 10 mg tablet 10 mg PO BEDTIME 04/24/23 11/06/23 Unknown History fluticasone propionate 110 2 puff inhalation BID 04/24/23 11/06/23 Unknown History mcg/actuation HFA aerosol inhaler (Flovent HFA) levothyroxine 75 mcg tablet 75 mcg PO DAILY #30 tabs 04/24/23 11/06/23 Unknown Rx metolazone 5 mg tablet 5 mg PO DAILY #30 tabs 04/24/23 11/06/23 Unknown Rx metoprolol succinate 50 mg 50 mg PO DAILY #30 tabs 04/24/23 11/06/23 Unknown Rx tablet,extended release 24 hr bumetanide 2 mg tablet 2 mg PO QAM 11/06/23 Unknown History cetirizine 10 mg tablet 10 mg PO DAILY PRN 11/06/23 11/06/23 Unknown History fluticasone propionate 50 1 spray intranasal DAILY PRN 11/06/23 11/06/23 Unknown History mcg/actuation nasal spray,suspension omeprazole 40 mg capsule,delayed 40 mg PO DAILY GERD #30 caps 11/06/23 11/06/23 Unknown Rx release Allergies Allergy/AdvReac Type Severity Reaction Status Date / Time aspirin Allergy ALGY-Anaphy Verified 01/03/24 14:51 laxis nicotine Allergy ALGY-Rash Verified 01/03/24 14:51 Penicillins Allergy ALGY-Rash Verified 01/03/24 14:51 procaine [From Novocain] Allergy ADR-Halluci Verified 01/03/24 14:51 nating PFSH Acute 2 PFSH: Family History Mother Stroke Aneurysm Father Stroke Brother Diabetes mellitus, type 2 Cancer Social History Smoking and tobacco/nicotine status: current every day tobacco/nicotine user (0.5 ppd) cigarettes Packs smoked per day: 1 Years cigarettes smoked: 55 [ Other cigarette details: Started at age 13] Adopted: No Number of children: 4 Vitals/I&O/Wt Last Vital Signs Temp 97.7 F 03/13/24 17:19 Pulse 63 03/13/24 17:19 Resp 16 03/13/24 17:19 BP 146/83 03/13/24 17:19 Pulse Ox 94 03/13/24 17:19 O2 Del Method Room Air 03/13/24 17:19 03/13/24 03/13/24 03/13/24 06:59 14:59 22:59 Intake Total 0 / 0 Balance 0 / 0 Weight last 48 hrs Weight 285 lb Physical Exam 2 Narrative: BELOW IS A FOCUSED LOWER EXTREMITY EXAM GENERAL: A&O x 3 VASCULAR: DP/PT pulses nonpalpable due to lower extremity habitus and extent of lymphedema DERMATOLOGICAL: Stasis dermatitis changes bilateral lower extremities right worse than left. Active serous drainage to right lower extremity posteriorly with macerated changes to stasis dermatitis. No full-thickness ulceration appreciated. MUSCULOSKELETAL: Morbidly obese. Tenderness with palpation of right posterior leg NEUROLOGICAL: Neurological sensation to the affected foot and ankle is present through L4-S1 dermatomes with no hyper/hypoesthesias, negative Tinel or Valleix's sign IMAGING: Tib-fib x-rays right lower extremity failed to show subcutaneous emphysema or any evidence of osteomyelitis Data 03/13/24 20:10 03/13/24 20:10 Micro: Microbiology 03/13/24 20:10 Blood Culture - Preliminary Blood SPECIMEN COLLECTED 03/13/24 20:13 Blood Culture - Preliminary Blood SPECIMEN COLLECTED A&P Assessment and plan (1) Lymphedema: (2) Stasis dermatitis: (3) Cellulitis: Plan -Bilateral lower extremity lymphedema/stasis dermatitis/cellulitis -Labs and vitals reviewed -WBC 11.09 -ESR pending -CRP pending -HR 63 -RR 16 -Tmax 97.7 -Abx vancomycin -Diet: Okay for diet -Cellulitis and stasis dermatitis changes bilateral lower extremities right worse than left. No debridement warranted at this time. Focus on compression therapy. Continue IV antibiotic therapy for cellulitis. Compression wrap applied to right lower extremity. Recommend admission with IV antibiotics due to patient's noncompliance and extent of cellulitis to bilateral lower extremities. -Pain Mgmt: Per primary team -Weight bearing: Weightbearing as tolerated for transfers -Dressings: Compression wrap to right lower extremity applied by podiatry in emergency department. Podiatry will change this dressing tomorrow 03/14/2024 -Continue current Abx therapy -Trend labs -Discharge plan: Plan to discharge home in coming days once cellulitis and lymphedema has been controlled -Podiatry will continue to round on patient daily and provide recommendations Coding Level of Care Code Acute Code for [facility] Fwd Diagnoses Lymphedema I89.0 Stasis dermatitis I87.2 Cellulitis L03.90
[2024-03-13 20:44] LABS: Erythrocyte Sedimentation Rate 72 mm/hr (0-15)
[2024-03-13 20:49] LABS: Alanine Aminotransferase 9 U/L (0-33); Albumin Level 3.3 g/dL (3.5-5.2); Alkaline Phosphatase 118 U/L (35-105); Anion Gap 16.6 (5-19); Aspartate Amino Transferase 12 U/L (0-32); Blood Urea Nitrogen 7 mg/dL (8-23); C Reactive Protein 71.9 mg/L (0.0-4.9); Calcium 8.9 mg/dL (8.5-10.5); Carbon Dioxide 30 mmol/L (22-29); Chloride 97 mmol/L (98-107); Creatinine Clr Calc Pharmacy 76.1542; Glomerular Filtration Rate 62.1 mL/min (90-130); Glucose 154 mg/dL (65-115); Osmolality Calculated 291 mOsm/kg (285-295); Potassium 3.6 mmol/L (3.5-5.1); Sodium 140 mmol/L (136-145); Total Bilirubin 0.3 mg/dL (0.15-1.2); Total Protein 6.3 g/dL (6.6-8.7)
--- NOTE | 2024-03-13 21:14 | P.HP_ITS ---
Providers/Chief Complaint 2 Admitting Physician: Lm Cooper MD Primary Care Provider: URVASHI Glaeas Chief Complaint: rt leg infect(sent by ) History of Present Illness Odalis Bird is a 69 year old female history of COPD, history of smoking, morbid obesity, hypertension, hypothyroidism, atrial fibrillation/flutter,, history of lymphedema, who presents to [facility] due to significant right lower extremity swelling, erythema, pain, increased drainage. Patient reports a history of lower extremity swelling, lymphedema, she does her own wraps at home, she is also on Bumex for fluid overload, was also on metolazone, she tells me that over the last few weeks she has developed increasing right lower extremity swelling, erythema, drainage, especially over the last few days, with a scab developing on her right posterior calf, the redness extends for the posterior calf, to the anterior person, down to the dorsal aspect of her foot, denies any bug bites, no cat or animal bites, no reported trauma Review of Systems 2 Const: Denies: fever(s) Card: Denies: chest pain Resp: Denies: dyspnea GI: Denies: abdominal pain Medications/Allergies Home Medications Medication Instructions Recorded Confirmed Last Taken Type albuterol sulfate 90 mcg/actuation 2 puff inhalation Q6H PRN 04/24/23 11/06/23 Unknown History aerosol inhaler Shortness Of Breath apixaban 5 mg tablet (Eliquis) 5 mg PO BID #60 tabs 04/24/23 11/06/23 Unknown Rx atorvastatin 80 mg tablet 80 mg PO DAILY 04/24/23 11/06/23 Unknown History baclofen 10 mg tablet 10 mg PO BEDTIME 04/24/23 11/06/23 Unknown History fluticasone propionate 110 2 puff inhalation BID 04/24/23 11/06/23 Unknown History mcg/actuation HFA aerosol inhaler (Flovent HFA) levothyroxine 75 mcg tablet 75 mcg PO DAILY #30 tabs 04/24/23 11/06/23 Unknown Rx metolazone 5 mg tablet 5 mg PO DAILY #30 tabs 04/24/23 11/06/23 Unknown Rx metoprolol succinate 50 mg 50 mg PO DAILY #30 tabs 04/24/23 11/06/23 Unknown Rx tablet,extended release 24 hr bumetanide 2 mg tablet 2 mg PO QAM 11/06/23 Unknown History cetirizine 10 mg tablet 10 mg PO DAILY PRN 11/06/23 11/06/23 Unknown History fluticasone propionate 50 1 spray intranasal DAILY PRN 11/06/23 11/06/23 Unknown History mcg/actuation nasal spray,suspension omeprazole 40 mg capsule,delayed 40 mg PO DAILY GERD #30 caps 11/06/23 11/06/23 Unknown Rx release Allergies Allergy/AdvReac Type Severity Reaction Status Date / Time aspirin Allergy ALGY-Anaphy Verified 01/03/24 14:51 laxis nicotine Allergy ALGY-Rash Verified 01/03/24 14:51 Penicillins Allergy ALGY-Rash Verified 01/03/24 14:51 procaine [From Novocain] Allergy ADR-Halluci Verified 01/03/24 14:51 nating PFSH Acute 2 PFSH: Medical History COPD (chronic obstructive pulmonary disease) Morbid obesity Atrial fibrillation/flutter Benign essential HTN Family History Mother Stroke Aneurysm Father Stroke Brother Diabetes mellitus, type 2 Cancer Social History Smoking and tobacco/nicotine status: current every day tobacco/nicotine user (0.5 ppd) cigarettes Packs smoked per day: 1 Years cigarettes smoked: 55 [ Other cigarette details: Started at age 13] Adopted: No Number of children: 4 Vitals/I&O/Wt Last Vital Signs Temp 97.7 F 03/13/24 17:19 Pulse 72 03/13/24 20:30 Resp 14 03/13/24 20:30 BP 121/76 03/13/24 20:30 Pulse Ox 94 03/13/24 20:30 O2 Del Method Room Air 03/13/24 17:19 03/13/24 03/13/24 03/13/24 06:59 14:59 22:59 Intake Total 0 / 0 Balance 0 / 0 Weight last 48 hrs Weight 129.274 kg Physical Exam 2 Const: COMMON NORMALS: no acute distress and patient oriented x3 HENMT: COMMON NORMALS: normocephalic HEAD & SCALP: normocephalic Eye: COMMON NORMALS: Equal, round and reactive pupils present Neck/C-Spine: COMMON NORMALS: no JVD Resp: COMMON NORMALS: normal respiratory effort, No retractions, No use of accessory muscles and clear to auscultation bilaterally AUSCULTATION: clear to auscultation bilaterally Cardio: COMMON NORMALS: regular rate, regular rhythm, S1 normal heart sound present and S2 normal heart sound present RATE: regular rate RHYTHM: r egular rhythm HEART SOUNDS: S1 normal heart sound present and S2 normal heart sound present GI: COMMON NORMALS: Normal to inspection, nondistended, normoactive bowel sounds present, Soft to palpation and non-tender Extremity: NARRATIVE EXTREMITY EXAM: 1+ pitting edema, stasis dermatitis, yves ateral extremity, lymphedema bilateral extremity Neuro: COMMON NORMALS: patient oriented x3, CN's II-XII intact bilaterally and moves all extremities Psych: COMMON NORMALS: mental status grossly normal Skin: NARRATIVE SKIN EXAM: Right calf, 10 x 10 cm area of irregular borders, macular lesion, with a whitish hue, areas of purulent drainage, with surrounding erythema, erythema extends anteriorly, to anterior person, down to the dorsal aspect of the foot, irregular borders Data 03/13/24 20:10 03/13/24 20:10 Micro: Microbiology 03/13/24 20:10 Blood Culture - Preliminary Blood SPECIMEN COLLECTED 03/13/24 20:13 Blood Culture - Preliminary Blood SPECIMEN COLLECTED A&P Assessment and plan (1) Benign essential HTN: (2) Atrial fibrillation/flutter: (3) Morbid obesity: (4) Cellulitis of leg, right: (5) COPD (chronic obstructive pulmonary disease): Qualifiers: COPD type: unspecified COPD Qualified Code(s): J44.9 - Chronic obstructive pulmonary disease, unspecified (6) CHF exacerbation: Plan Right lower extremity swelling -Combination of lymphedema, stasis dermatitis -Also with cellulitis -Also with fluid overload, lower extremity edema, CHF exacerbation Plan -Continue vancomycin -Add Zosyn -Bumex 1 mg IV push every 12 hours with metolazone -Ultrasound venous ultrasound -Podiatry consulted -Follow blood cultures -Monitor clinically -Continue Eliquis for DVT prophylaxis -Full code Attestations 2 Medical Necessity Statement*: Patient requires hospitalization, inpatient, greater than 2 minutes for right lower extremity cellulitis, fluid overload Diagnoses Benign essential HTN I10 Atrial fibrillation/flutter I48.91; I48.92 Morbid obesity E66.01 Cellulitis of leg, right L03.115 Chronic obstructive pulmonary disease, unspecified COPD type J44.9 COPD type: unspecified COPD CHF exacerbation I50.9
[2024-03-13 21:48] LABS: NT Pro B Type Natriuretic Pept 133 pg/mL (0-125); Procalcitonin 0.04 ng/mL (0-0.5)
[2024-03-13 22:02] LABS: Reflex Lactate Order REFLEX LACTIC ORDERD
[2024-03-13 22:34] VITALS: BP 129/80; PULSE 70; RESP 18; TEMP 36.7; O2SAT 90
[2024-03-13 23:07] LABS: Estmated Average Glucose 154
[2024-03-13 23:08] LABS: Thyroid Stimulating Hormone 4.23 uIU/mL (0.27-4.20)
[2024-03-13 23:40] VITALS: BP 129/62; PULSE 63; RESP 16; TEMP 37; O2SAT 90
[2024-03-13 23:47] LABS: Lactic Acid level (Lactate) 1.5 mmol/L (0.5-2.2)
[2024-03-14] VITALS (10 sets, daily range): BP systolic 116–149; BP diastolic 44–88; PULSE 60–85; RESP 14–17; TEMP 36.4–37.6; O2SAT 90–94
[2024-03-14] MEDS: morphine 4 mg/mL SDV 1 mL 2 MG IVP ×3 (00:29→22:54)
[2024-03-14] MEDS: meropenem 500 mg SDV IVP ×4 (00:30→22:59)
[2024-03-14] MEDS: pantoprazole 40 mg SDV IVP ×2 (00:31→22:59)
[2024-03-14] MEDS: apixaban 5 mg Tablet PO ×3 (00:31→17:44)
--- NOTE | 2024-03-14 00:43 | PC.NURSE ---
Nurse to room to administer medications. Nurse provided education on each medication. Patient refused ordered bumex, stating That's a water pill isn't it? This nurse explained yes, but that it is administered through the IV instead of in a pill form. The patient then stated Well that's stupid. Just look at my legs, obviously that crap isn't going to do anything at this point. Attempted further education about the importance of diuretics with her current condition, patient unreceptive. Notified Dr. Cooper of patient refusal via VOALTE at [id number].
[2024-03-14 06:12] LABS: Basophils % 0.4 %; Eosinophils # 0.2 10^3/uL (0.0-0.8); Eosinophils % 1.8 %; Hematocrit 32.8 % (36-47); Lymphocytes # 1.3 10^3/uL (0.8-4.8); Lymphocytes % 11.4 %; Mean Corpuscular HGB Conc 30.8 g/dL (30-55); Mean Corpuscular Hemoglobin 26.6 pg (27-33); Mean Corpuscular Volume 86.3 fl (85-98); Monocytes # 0.9 10^3/uL (0.2-0.9); Monocytes % 8.2 %; Neutrophils # 8.61 10^3/uL (1.8-7.7); Neutrophils % 77.1 %; Nucleated Red Blood Cells % 0 %; Platelet Count 279 10^3/cmm (157-399); Red Cell Distribution Width 17.2 % (12.1-15.1); White Blood Count 11.16 10^3/uL (3.29-11.43)
[2024-03-14] MEDS: levothyroxine 75 mcg Tablet PO (06:17)
[2024-03-14 06:39] LABS: Anion Gap 13.4 (5-19); Blood Urea Nitrogen 8 mg/dL (8-23); Calcium 8.6 mg/dL (8.5-10.5); Carbon Dioxide 32 mmol/L (22-29); Chloride 99 mmol/L (98-107); Creatinine Clr Calc Pharmacy 91.5665; Glomerular Filtration Rate 71.1 mL/min (90-130); Glucose 145 mg/dL (65-115); Osmolality Calculated 293 mOsm/kg (285-295); Potassium 3.4 mmol/L (3.5-5.1); Sodium 141 mmol/L (136-145)
[2024-03-14] MEDS: metoprolol succinate ER (24 HR) 50 mg Tablet PO (08:51)
[2024-03-14] MEDS: atorvastatin 40 mg Tablet 80 MG PO (08:52)
[2024-03-14] MEDS: metOLazone 5 MG Tablet PO (08:52)
--- NOTE | 2024-03-14 09:12 | PHA.VACGOAL ---
Vancomycin Goal - Goal Vancomycin Goal:: 10-15 mg/L Vancomycin Indication:: SSTI - Therapy Current therapy:: Meropenem Day of therpy:: Day 1 of [] Actual body weight (kg): 316 lb - Data Labs: WBC 11.16 10^3/uL (3.29-11.43) 03/14/24 05:49 RBC 3.80 10^6/uL (3.85-5.65) L 03/14/24 05:49 Hgb 10.10 g/dL (11.27-16.99) L 03/14/24 05:49 Hct 32.8 % (36-47) L 03/14/24 05:49 MCV 86.3 fl (85-98) 03/14/24 05:49 MCH 26.6 pg (27-33) L 03/14/24 05:49 MCHC 30.8 g/dL (30-55) 03/14/24 05:49 RDW 17.2 % (12.1-15.1) H 03/14/24 05:49 Sodium 141 mmol/L (136-145) 03/14/24 05:49 Potassium 3.4 mmol/L (3.5-5.1) L 03/14/24 05:49 Chloride 99 mmol/L (98-107) 03/14/24 05:49 Carbon Dioxide 32 mmol/L (22-29) H 03/14/24 05:49 Anion Gap 13.4 (5-19) 03/14/24 05:49 BUN 8 mg/dL (8-23) 03/14/24 05:49 Creatinine 0.8 mg/dL (0.5-0.9) 03/14/24 05:49 GFR Calculation 71.1 mL/min (90-130) L 03/14/24 05:49 Last dialysis session:: N/A Treatment plan:: new consult Regimen:: TELEPHARMACY: 1250 mg IV Q12hr (infused over 1.5 hr) AUC/ABDIRIZAK 547 mcg*hr/mL (goal 400 to 600 mcg*hr/mL) Peak 31.9 mcg/mL Trough 15.4 mcg/mL Follow up:: WILL CONTINUE TO MONITOR AND FOLLOW UP DAILY
--- NOTE | 2024-03-14 11:16 | P.PN_ITS ---
Subjective 2 Subjective: Patient was sitting in room in chair with legs in dependent position this morning. According to nursing staff bedbugs were found and patient was transferred to adjacent room. Dressing was removed. Patient does note significant improvement overnight after compressive dressing was applied in emergency department. Otherwise, no overnight events. Vitals/I&O/Wt Last Vital Signs Temp 99.6 F 03/14/24 08:22 Pulse 63 03/14/24 08:22 Resp 17 03/14/24 08:22 BP 146/76 03/14/24 08:22 Pulse Ox 90 03/14/24 08:22 O2 Del Method Room Air 03/14/24 08:22 03/13/24 03/14/24 03/14/24 22:59 06:59 14:59 Intake Total 250 / 250 120 / 370 480 / 480 Balance 250 / 250 120 / 370 480 / 480 Weight last 48 hrs Weight 316 lb Weight 285 lb Physical Exam 2 Narrative: BELOW IS A FOCUSED LOWER EXTREMITY EXAM GENERAL: A&O x 3 VASCULAR: DP/PT pulses nonpalpable due to lower extremity habitus and extent of lymphedema DERMATOLOGICAL: Stasis dermatitis changes bilateral lower extremities right worse than left. Significant improvement to right lower extremity after compressive wrap dressing. Drainage has decreased MUSCULOSKELETAL: Morbidly obese. Tenderness with palpation of right posterior leg NEUROLOGICAL: Neurological sensation to the affected foot and ankle is present through L4-S1 dermatomes with no hyper/hypoesthesias, negative Tinel or Valleix's sign IMAGING: Tib-fib x-rays right lower extremity failed to show subcutaneous emphysema or any evidence of osteomyelitis Data 03/14/24 05:49 03/14/24 05:49 Micro: Microbiology 03/13/24 20:10 Blood Culture - Preliminary Blood SPECIMEN COLLECTED 03/13/24 20:13 Blood Culture - Preliminary Blood SPECIMEN COLLECTED A&P Assessment and plan (1) Lymphedema: (2) Stasis dermatitis: (3) Cellulitis: Plan -Bilateral lower extremity lymphedema/stasis dermatitis/cellulitis -Labs and vitals reviewed -WBC 11.16 -ESR 72 -CRP 71 -HR 63 -RR 16 -Tmax 97.7 -Abx vancomycin -Diet: Okay for diet -Cellulitis and stasis dermatitis changes bilateral lower extremities right worse than left. No debridement warranted at this time. Focus on compression therapy. Continue IV antibiotic therapy for cellulitis. Compression wrap applied to right lower extremity today consisting of Unna boot wrap, multilayer compression. Significant improvement in comparison to yesterday -Pain Mgmt: Per primary team -Weight bearing: Weightbearing as tolerated for transfers -Dressings: Compression wrap to right lower extremity applied by podiatry this morning consisting of Unna boot and multilayer compression -Continue current Abx therapy -Trend labs -Discharge plan: Significant improvement overnight with compression wrap. Patient will be okay to discharge home from podiatry standpoint with follow-up at wound care. Recommend discharge on broad-spectrum oral antibiotics. Patient is to continue daily compression wraps at home upon discharge. She has segmental compression device at home. Advised patient to use this once swelling has reduced from daily compression wraps. Also keep legs elevated. -Podiatry will continue to round on patient daily and provide recommendations Attestations 2 Medical Necessity Statement*: See hospitalist note Coding Level of Care Code Acute Code for Chg Fwd Diagnoses Lymphedema I89.0 Stasis dermatitis I87.2 Cellulitis L03.90
[2024-03-14] MEDS: vancomycin 1,250 MG/250 ML PIGGYBACK 166.67 MG IV (11:56)
[2024-03-14] MEDS: bumetanide 0.25 mg/mL SDV 4 mL 1 MG IVP (11:57)
--- NOTE | 2024-03-14 14:56 | PC.NURSE ---
Patient was noted to have a bug crawling across pillow. Patient was bathed, clean gown and moved to another room. Patients belongings were bagged and electric wheel chair left in room while decontamination process was done. Patient was deemed to have bedbugs at that time.
[2024-03-14 17:33] LABS: Bilirubin Urine Negative (Negative); Blood Urine Negative (Negative); Glucose Urine UA Negative (Normal); Ketones Urine Negative (Negative); Leukocyte Esterase Urine Negative (Negative); Nitrate Urine Negative (Negative); Protein Urine Negative (Negative); Specific Gravity, Urine 1.007 (1.005-1.030); Urine Appearance Clear (CLEAR); Urine Color Yellow (Yellow); Urobilinogen Urine 0.2 mg/dL (Negative)
[2024-03-14 17:38] LABS: Add Urine Microscopic? YES; Bacteria Urine None Seen /hpf; Hyaline Casts Urine 0-4 /lpf; RBC Urine 0-2 /hpf (0-2); Squamous Epithelial Cell Urine 0-5 /hpf (0-5); WBC Urine 0-5 /hpf (0-5)
--- NOTE | 2024-03-14 20:52 | P.PN_ITS ---
Subjective 2 Subjective: She reports she is doing all right. Her legs were assessed and dressed by podiatry this morning. She tells me the plan is for reassessment tomorrow and possible discharge home. She is very unhappy about doctors and hospitals not allowing her person to leave the premises to smoke. Vitals/I&O/Wt Last Vital Signs Temp 97.6 F 03/14/24 20:00 Pulse 85 03/14/24 20:00 Resp 17 03/14/24 20:00 BP 143/68 03/14/24 20:00 Pulse Ox 90 03/14/24 20:00 O2 Del Method Room Air 03/14/24 20:00 03/14/24 03/14/24 03/14/24 06:59 14:59 22:59 Intake Total 120 / 370 1200 / 1200 970 / 2170 Output Total 1200 / 1200 Balance 120 / 370 1200 / 1200 -230 / 970 Weight last 48 hrs Weight 143.335 kg Weight 129.274 kg Physical Exam 2 Const: COMMON NORMALS: patient oriented x3 and alert GENERAL APPEARANCE: c ooperative NUTRITIONAL APPEARANCE: obese ORIENTATION/CONSCIOUSNESS: Yes awake HENMT: COMMON NORMALS: oropharynx normal Neck/C-Spine: COMMON NORMALS: no JVD Resp: COMMON NORMALS: normal respiratory effort and clear to auscultation bilaterally AUSCULTATION: clear to auscultation bilaterally Cardio: COMMON NORMALS: no JVD, regular rhythm, S1 normal heart sound present, S2 normal heart sound present and No murmurs present (Cardio) RHYTHM: regular rhythm HEART SOUNDS: S1 normal heart sound present and S2 normal heart sound present GI: COMMON NORMALS: Normal to inspection, nondistended, normoactive bowel sounds present, Soft to palpation and non-tender PALPATION: Yes Soft to palpation Extremity: COMMON NORMALS: no joint enlargement and no pedal edema Neuro: COMMON NORMALS: patient oriented x3 and moves all extremities S ENSORIUM/ORIENTATION: Yes alert Skin: NARRATIVE SKIN EXAM: Edema and stasis of bilateral lower extremities withChronic stasis dermatitis. Wrapped in Unna boot compression dressing. Data 03/14/24 05:49 03/14/24 05:49 Micro: Microbiology 03/13/24 20:10 Blood Culture - Preliminary Blood NEGATIVE TO DATE 03/13/24 20:13 Blood Culture - Preliminary Blood NEGATIVE TO DATE A&P Assessment and plan (1) Benign essential HTN: (2) Atrial fibrillation/flutter: (3) Morbid obesity: (4) Cellulitis of leg, right: (5) COPD (chronic obstructive pulmonary disease): Qualifiers: COPD type: unspecified COPD Qualified Code(s): J44.9 - Chronic obstructive pulmonary disease, unspecified (6) CHF exacerbation: Plan Right lower extremity swelling: With improvement today compared to yesterday. Reviewed podiatry note. Reviewed CBC, chemistry, blood culture. Dressing was changed with compression dressing by podiatry. Continues with gentle diuresis. Continue IV antibiotic today. If continues to do well, discharge tomorrow with follow-up with wound care clinic. Discussed with nursing, test case developer. Reassess renal function, with risk of kidney injury with Vanco repeat chemistry, repeat CBC. Follow-up blood culture. -Combination of lymphedema, stasis dermatitis -Also with cellulitis -Also with fluid overload, lower extremity edema, CHF exacerbation Smoking: She is very unhappy that in her experience physicians and hospitals do not allow patients to go of premises to smoke. Will add nicotine replacement on as needed basis. Allergy noted -avoid nicotine patches. Bedbugs: Bedbugs were discovered. Relocated to private room with isolation. Received a bath. Discussed with nursing, test case developer. Hypokalemia: Supplement. Check magnesium. -Continue Eliquis for DVT prophylaxis -Full code Attestations 2 Medical Necessity Statement*: Continue admission for assessment management of extensive cellulitis of lower extremities, compression therapy, diuretic for fluid overload, IV antibiotics, pending reassessment. and High MDM includes amount and/or complexity of data reviewed/ordered [ previous or external records, resulted lab(s)/test(s) and other healthcare professional discussion] and described risk of complication, morbidity or mortality of management as documented Diagnoses Benign essential HTN I10 Atrial fibrillation/flutter I48.91; I48.92 Morbid obesity E66.01 Cellulitis of leg, right L03.115 Chronic obstructive pulmonary disease, unspecified COPD type J44.9 COPD type: unspecified COPD CHF exacerbation I50.9
--- NOTE | 2024-03-14 22:34 | USR_ITS ---
PROCEDURE INFORMATION: Exam: US Duplex Right Lower Extremity Veins, Limited Exam date and time: 03/14/2024 5:14 PM Age: 69 years old Clinical indication: Swelling (edema) of limb; Lower extremity, right TECHNIQUE: Imaging protocol: Real-time duplex ultrasound of the right extremity with 2-D mello scale, color Doppler flow and spectral waveform analysis including responses to compression and other maneuvers (when performed) with image documentation. Limited exam was focused on the right lower extremity veins. COMPARISON: CR XR tibia fibula RT 2V [id number] 03/13/2024 7:34 PM FINDINGS: Right deep veins: Unremarkable. The common femoral, femoral, proximal profunda femoral, popliteal and visualized calf veins are patent without thrombus. Normal Doppler waveforms. Normal compressibility and/or augmentation response. Superficial veins: Greater saphenous vein at the saphenofemoral junction is patent without thrombus. Soft tissues: Mild subcutaneous edema. US/[place] [id number] IMPRESSION: No sonographic evidence of deep vein thrombosis.
[2024-03-14] MEDS: vancomycin 1,250 MG/250 ML PIGGYBACK 166 MG IV (23:00)
[2024-03-14] MEDS: nicotine 4 mg lozenge MUCOUS MEM (23:01)
[2024-03-15] VITALS: BP 110/65; PULSE 65; RESP 16; TEMP 36.6; O2SAT 95
[2024-03-15] MEDS: ciprofloxacin 400 MG/200 ML PREMIX 200 MG IV (00:55)
[2024-03-15] MEDS: nystatin powder 15 gm Btl 1 APPLIC TOPICAL ×2 (00:55→10:03)
[2024-03-15] MEDS: bumetanide 0.25 mg/mL SDV 4 mL 1 MG IVP (00:56)
[2024-03-15 04:00] VITALS: BP 106/54; PULSE 70; RESP 18; TEMP 36.9; O2SAT 93
[2024-03-15 06:34] LABS: Basophils % 0.4 %; Eosinophils # 0.3 10^3/uL (0.0-0.8); Eosinophils % 2.5 %; Hematocrit 31.8 % (36-47); Lymphocytes # 1.7 10^3/uL (0.8-4.8); Lymphocytes % 16.4 %; Mean Corpuscular HGB Conc 30.5 g/dL (30-55); Mean Corpuscular Hemoglobin 26.7 pg (27-33); Mean Corpuscular Volume 87.6 fl (85-98); Mean Platelet Volume 8.7 fL (7.4-10.4); Neutrophils # 7.05 10^3/uL (1.8-7.7); Neutrophils % 69.4 %; Nucleated Red Blood Cells % 0 %; Platelet Count 253 10^3/cmm (157-399); Red Blood Count 3.63 10^6/uL (3.85-5.65); Red Cell Distribution Width 17.1 % (12.1-15.1); White Blood Count 10.14 10^3/uL (3.29-11.43)
[2024-03-15 06:51] VITALS: RESP 18; O2SAT 93
[2024-03-15] MEDS: morphine 4 mg/mL SDV 1 mL 2 MG IVP (06:51)
[2024-03-15] MEDS: levothyroxine 75 mcg Tablet PO (06:53)
[2024-03-15] MEDS: meropenem 500 mg SDV IVP (06:53)
[2024-03-15 06:56] LABS: Alanine Aminotransferase 6 U/L (0-33); Albumin Level 2.7 g/dL (3.5-5.2); Alkaline Phosphatase 88 U/L (35-105); Anion Gap 9.4 (5-19); Aspartate Amino Transferase 8 U/L (0-32); Blood Urea Nitrogen 7 mg/dL (8-23); Calcium 8.6 mg/dL (8.5-10.5); Carbon Dioxide 37 mmol/L (22-29); Chloride 98 mmol/L (98-107); Creatinine Clr Calc Pharmacy 72.4016; Globulin 3.1 g/dL (1.3-4.6); Glucose 98 mg/dL (65-115); Osmolality Calculated 290 mOsm/kg (285-295); Potassium 3.4 mmol/L (3.5-5.1); Sodium 141 mmol/L (136-145); Total Bilirubin 0.3 mg/dL (0.15-1.2); Total Protein 5.8 g/dL (6.6-8.7)
[2024-03-15 08:00] VITALS: BP 123/80; PULSE 67; RESP 20; TEMP 36.6; O2SAT 92
[2024-03-15] MEDS: potassium chloride ER 20 mEq Tablet 40 MEQ PO (10:01)
[2024-03-15] MEDS: apixaban 5 mg Tablet PO (10:02)
[2024-03-15] MEDS: metOLazone 5 MG Tablet PO (10:02)
[2024-03-15] MEDS: atorvastatin 40 mg Tablet 80 MG PO (10:02)
[2024-03-15] MEDS: metoprolol succinate ER (24 HR) 50 mg Tablet PO (10:03)
--- NOTE | 2024-03-15 10:11 | P.PN_ITS ---
Subjective 2 Subjective: Patient seen this morning sitting in chair with legs in dependent position again. No overnight events. Vitals/I&O/Wt Last Vital Signs Temp 98.4 F 03/15/24 04:00 Pulse 70 03/15/24 04:00 Resp 18 03/15/24 06:51 BP 106/54 03/15/24 04:00 Pulse Ox 93 03/15/24 06:51 O2 Del Method Room Air 03/15/24 00:00 O2 Flow Rate 2 03/14/24 20:00 03/14/24 03/15/24 03/15/24 22:59 06:59 14:59 Intake Total 1450 / 2650 570 / 3220 Output Total 1800 / 1800 2100 / 3900 Balance -350 / 850 -1530 / -680 Weight last 48 hrs Weight 310 lb 6.4 oz Weight 316 lb Weight 285 lb Physical Exam 2 Narrative: BELOW IS A FOCUSED LOWER EXTREMITY EXAM GENERAL: A&O x 3 VASCULAR: DP/PT pulses nonpalpable due to lower extremity habitus and extent of lymphedema DERMATOLOGICAL: Stasis dermatitis changes bilateral lower extremities right worse than left. Significant improvement to right lower extremity after compressive wrap dressing. Drainage has decreased. Small full-thickness ulceration posterior aspect right calf region measuring 0.3 x 0.2 x 0.1 cm. No signs of infection or active drainage. MUSCULOSKELETAL: Morbidly obese. Tenderness with palpation of right posterior leg NEUROLOGICAL: Neurological sensation to the affected foot and ankle is present through L4-S1 dermatomes with no hyper/hypoesthesias, negative Tinel or Valleix's sign IMAGING: Tib-fib x-rays right lower extremity failed to show subcutaneous emphysema or any evidence of osteomyelitis Urinary Catheter Management: Dubois: Cath Placed During This Visit: yes Reason for Continuing Indwelling Catheter: Other Urinary Catheter Date of Insertion: 03/15/24 Urinary Catheter Time of Insertion: 01:31 Data 03/15/24 06:12 03/15/24 06:12 Micro: Microbiology 03/13/24 20:10 Blood Culture - Preliminary Blood NEGATIVE TO DATE 03/13/24 20:13 Blood Culture - Preliminary Blood NEGATIVE TO DATE A&P Assessment and plan (1) Lymphedema: (2) Stasis dermatitis: (3) Cellulitis: Plan -Bilateral lower extremity lymphedema/stasis dermatitis/cellulitis -Labs and vitals reviewed -VSS -Abx vancomycin -Diet: Okay for diet -Cellulitis and stasis dermatitis changes bilateral lower extremities right worse than left. No debridement warranted at this time. Focus on compression therapy. Continue IV antibiotic therapy for cellulitis. Compression wrap applied again to right lower extremity today consisting of Unna boot wrap, multilayer compression. Again, significant improvement in comparison to yesterday -Pain Mgmt: Per primary team -Weight bearing: Weightbearing as tolerated for transfers -Dressings: Compression wrap to right lower extremity applied by podiatry this morning consisting of Unna boot and multilayer compression -Continue current Abx therapy -Trend labs -Discharge plan: Significant improvement overnight with compression wrap. Patient is okay to discharge home from podiatry standpoint with follow-up at wound care. Recommend discharge on broad-spectrum oral antibiotics. Patient is to continue daily compression wraps at home upon discharge. She has segmental compression device at home. Advised patient to use this once swelling has reduced from daily compression wraps. Also keep legs elevated. Patient will also benefit from home health to aid with compression wraps until right leg wound has healed. Attestations 2 Medical Necessity Statement*: See hospitalist note Coding Level of Care Code Acute Code for g Fwd Diagnoses Lymphedema I89.0 Stasis dermatitis I87.2 Cellulitis L03.90
--- NOTE | 2024-03-15 10:48 | PC.SOCIAL ---
IMM Update pg 2 of IMM updated and reviewed w/ patient. Copy provided and copy dated, initialed and placed in chart.
[2024-03-15 12:00] VITALS: BP 133/70; PULSE 68; RESP 20; TEMP 36.9; O2SAT 90
[2024-03-15 14:53] VITALS: BP 133/70; PULSE 68; RESP 20; TEMP 36.9; O2SAT 91
--- NOTE | 2024-03-15 18:31 | P.DS_ITS ---
Discharge Providers Date of Admission: 03/13/24 20:52 Date of Discharge: March 15, 2024 Attending Provider at Admission: Lm Cooper MD Attending Provider at Discharge: Flaco Robertson Primary Care Provider: URVASHI Galeas Diagnoses at Discharge Discharge Diagnosis (1) Lymphedema: Status: Inactive (2) Stasis dermatitis: Status: Acute (3) Cellulitis: Status: Acute Other Information Additional DC diagnoses/information: Acute on Chronic Diastolic (Preserved EF) Heart Failure Reason for Visit Reason for Visit: rt leg infect(sent by ) Brief History: Odalis Bird is a 69 year old female history of COPD, history of smoking, morbid obesity, hypertension, hypothyroidism, atrial fibrillation/flutter,, history of lymphedema, who presents to [facility] due to significant right lower extremity swelling, erythema, pain, increased drainage. Patient reports a history of lower extremity swelling, lymphedema, she does her own wraps at home, she is also on Bumex for fluid overload, was also on metolazone, she tells me that over the last few weeks she has developed increasing right lower extremity swelling, erythema, drainage, especially over the last few days, with a scab developing on her right posterior calf, the redness extends for the posterior calf, to the anterior person, down to the dorsal aspect of her foot, denies any bug bites, no cat or animal bites, no reported trauma Hospital Course Hospital Course She was admitted, started on IV antibiotic, gentle diuresis, venous duplex ultrasounds obtained that did not show DVT. Podiatry assessed patient and her legs were dressed in Unna boot compression dressing. She was instructed to elevate lower extremities to help mitigate edema. During hospitalization bedbugs were found on her belongings and she received a shower, advised to seek rn orthopaedics services. She was incidentally also found to have diabetes, A1c of 7 and is started on metformin. She is not ready to quit smoking. With reassessment bilateral lower extremity cellulitis showing improvement, edema with some improvement so far. At discharge she continues with dressings and is asked to follow-up with wound care as per discussion with podiatry and her. Resumed on home oral diuretic at discharge together with antibiotic course. Please follow-up for continued improvement and reassess with regards to diagnosis of diabetes. Physical Exam Const: COMMON NORMALS: patient oriented x3 and alert GENERAL APPEARANCE: cooperative NUTRITIONAL APPEARANCE: obese ORIENTATION/CONSCIOUSNESS: Yes awake HENMT: COMMON NORMALS: oropharynx normal Neck/C-Spine: COMMON NORMALS: no JVD Resp: COMMON NORMALS: normal respiratory effort and clear to auscultation bilaterally AUSCULTATION: clear to auscultation bilaterally Cardio: COMMON NORMALS: no JVD, regular rhythm, S1 normal heart sound present, S2 normal heart sound present and No murmurs present (Cardio) RHYTHM: regular rhythm HEART SOUNDS: S1 normal heart sound present and S2 normal heart sound present GI: COMMON NORMALS: Normal to inspection, nondistended, normoactive bowel so unds present, Soft to palpation and non-tender PALPATION: Yes Soft to palpation Extremity: COMMON NORMALS: no joint enlargement and no pedal edema Neuro: COMMON NORMALS: patient oriented x3 and moves all extremities SENSORIUM/ORIENTATION: Yes alert Skin: NARRATIVE SKIN EXAM: Edema and stasis of bilateral lower extremities withChronic stasis dermatitis. Wrapped in Unna boot compression dressing. Urinary Catheter Management: Dubois: Cath Placed During This Visit: yes Reason for Continuing Indwelling Catheter: Other Urinary Catheter Date of Insertion: 03/15/24 Urinary Catheter Time of Insertion: 01:31 Discharge Data Studies Completed and Pending Completed Studies During Hospitalization Category Date Time Status XR tibia fibula RT 2V [id number] Stat Exams 03/13/24 19:21 [place] [id number] Routine Ultrasound 03/14/24 22:34 Completed Pending at discharge Category Date Time Status Blood Culture Stat Lab 03/13/24 20:13 Results Radiology Impressions Tibia/Fibula X-Ray 03/13/24 19:21 IMPRESSION: No acute findings. Venous Duplex 03/14/24 22:34 IMPRESSION: No sonographic evidence of deep vein thrombosis. Laboratory Results WBC 10.14 10^3/uL (3.29-11.43) 03/15/24 06:12 RBC 3.63 10^6/uL (3.85-5.65) L 03/15/24 06:12 Hgb 9.70 g/dL (11.27-16.99) L 03/15/24 06:12 Hct 31.8 % (36-47) L 03/15/24 06:12 MCV 87.6 fl (85-98) 03/15/24 06:12 MCH 26.7 pg (27-33) L 03/15/24 06:12 MCHC 30.5 g/dL (30-55) 03/15/24 06:12 RDW 17.1 % (12.1-15.1) H 03/15/24 06:12 Plt Count 253 10^3/cmm (157-399) 03/15/24 06:12 MPV 8.7 fL (7.4-10.4) 03/15/24 06:12 Neut % (Auto) 69.4 % 03/15/24 06:12 Lymph % (Auto) 16.4 % 03/15/24 06:12 [place]hen[place] % (Auto) 10.0 % 03/15/24 06:12 Eos % (Auto) 2.5 % 03/15/24 06:12 Baso % (Auto) 0.4 % 03/15/24 06:12 Neut # (Auto) 7.05 10^3/uL (1.8-7.7) 03/15/24 06:12 Lymph # (Auto) 1.7 10^3/uL (0.8-4.8) 03/15/24 06:12 Mchenry # (Auto) 1.0 10^3/uL (0.2-0.9) H 03/15/24 06:12 Eos # (Auto) 0.3 10^3/uL (0.0-0.8) 03/15/24 06:12 Baso # (Auto) 0.0 10^3/uL (0.0-0.1) 03/15/24 06:12 Nucleated RBC % (auto) 0 % 03/15/24 06:12 Nucleated RBCs # 0.0 /100WBC 03/15/24 06:12 ESR 72 mm/hr (0-15) H 03/13/24 20:10 Sodium 141 mmol/L (136-145) 03/15/24 06:12 Potassium 3.4 mmol/L (3.5-5.1) L 03/15/24 06:12 Chloride 98 mmol/L (98-107) 03/15/24 06:12 Carbon Dioxide 37 mmol/L (22-29) H 03/15/24 06:12 Anion Gap 9.4 (5-19) 03/15/24 06:12 BUN 7 mg/dL (8-23) L 03/15/24 06:12 Creatinine 1.0 mg/dL (0.5-0.9) H 03/15/24 06:12 GFR Calculation 55.0 mL/min (90-130) L 03/15/24 06:12 Glucose 98 mg/dL (65-115) 03/15/24 06:12 Estimat Average Glucose 154 03/13/24 20:10 Hemoglobin A1c 7.0 % (4.0-6.0) H 03/13/24 20:10 Calculated Osmolality 290 mOsm/kg (285-295) 03/15/24 06:12 Lactic Acid 3.0 mmol/L (0.5-2.2) H 03/13/24 20:10 Lactic Acid (Sepsis) 1.5 mmol/L (0.5-2.2) 03/13/24 23:07 Calcium 8.6 mg/dL (8.5-10.5) 03/15/24 06:12 Total Bilirubin 0.3 mg/dL (0.15-1.2) 03/15/24 06:12 AST 8 U/L (0-32) 03/15/24 06:12 ALT 6 U/L (0-33) 03/15/24 06:12 Alkaline Phosphatase 88 U/L (35-105) 03/15/24 06:12 C-Reactive Protein 71.9 mg/L (0.0-4.9) H 03/13/24 20:10 NT-Pro-B Natriuret Pep 133 pg/mL (0-125) H 03/13/24 20:14 Total Protein 5.8 g/dL (6.6-8.7) L 03/15/24 06:12 Albumin 2.7 g/dL (3.5-5.2) L 03/15/24 06:12 Globulin 3.1 g/dL (1.3-4.6) 03/15/24 06:12 Procalcitonin 0.04 ng/mL (0-0.5) 03/13/24 20:14 TSH 4.23 uIU/mL (0.27-4.20) H 03/13/24 20:10 Urine Color Yellow (Yellow) 03/14/24 17:25 Urine Appearance Clear (CLEAR) 03/14/24 17:25 Urine pH 7.0 (5-7) 03/14/24 17:25 Ur Specific [place] 1.007 (1.005-1.030) 03/14/24 17:25 Urine Protein Negative (Negative) 03/14/24 17:25 Urine Glucose (UA) Negative (Normal) 03/14/24 17:25 Urine Ketones Negative (Negative) 03/14/24 17:25 Urine Blood Negative (Negative) 03/14/24 17:25 Urine Nitrate Negative (Negative) 03/14/24 17:25 Urine Bilirubin Negative (Negative) 03/14/24 17:25 Urine Urobilinogen 0.2 mg/dL (Negative) 03/14/24 17:25 Ur Leukocyte Esterase Negative (Negative) 03/14/24 17:25 Urine RBC 0-2 /hpf (0-2) 03/14/24 17:25 Urine WBC 0-5 /hpf (0-5) 03/14/24 17:25 Ur Squamous Epith Cells 0-5 /hpf (0-5) 03/14/24 17:25 Amorphous Sediment Not Reportable 03/14/24 17:25 Urine Bacteria None seen /hpf (NONE) 03/14/24 17:25 Hyaline Casts 0-4 /lpf H 03/14/24 17:25 Vitals Last Vital Signs Temp 98.5 F 03/15/24 14:53 Pulse 68 03/15/24 14:53 Resp 20 H 03/15/24 14:53 BP 133/70 03/15/24 14:53 Pulse Ox 91 03/15/24 14:53 O2 Del Method Nasal Cannula 03/15/24 12:00 O2 Flow Rate 2 03/15/24 12:00 Discharge Plan Discharge Patient Disposition: Home Health Service Condition: Stable Prescriptions: New ciprofloxacin HCl 500 mg tablet 500 mg PO BID Qty: 12 0RF linezolid 600 mg tablet 600 mg PO BID 6 Days Qty: 12 0RF metformin 500 mg tablet 500 mg PO BID Qty: 180 0RF Continued bumetanide 2 mg tablet 2 mg PO QAM omeprazole 40 mg capsule,delayed release(DR/EC) 40 mg PO DAILY Qty: 30 1RF Eliquis 5 mg tablet 5 mg PO BID Qty: 60 0RF levothyroxine 75 mcg tablet 75 mcg PO DAILY Qty: 30 0RF metolazone 5 mg tablet 5 mg PO DAILY Qty: 30 0RF metoprolol succinate 50 mg tablet extended release 24 hr 50 mg PO DAILY Qty: 30 0RF fluticasone propionate 50 mcg/actuation spray,suspension 1 spray INTRANASAL DAILY PRN (Reason: ALLERGIES) Rx Instructions: administer into each nostril Discharge Orders: Discharge Order (Routine); Ordered 03/15/24 Ordered By: Flaco Robertson Referrals: Wound Care [Provider Group] - 03/22/24 8:00 am ( [facility] wound care [address] [place] [address] ) [facility] [Outside] Sherrell Lakhani FNP [Primary Care Provider] - 03/26/24 3:30 pm Discharge Diet: Diabetic Patient Instructions: Metformin (By mouth), Heart Failure (GEN), Cellulitis (GEN), Type 2 Diabetes in Adults: New Diagnosis (IP), Bed Bugs (GEN), Venous Insufficiency (GEN), Opioid Safety, Pain Management Activity Restrictions/Additional Instructions: Maintain compression dressings on lower extremities. Follow-up with wound care for reassessment and dressing changes. Elevate your lower extremities when you are at rest. Follow-up with your primary doctor for additional assessment including of congestive heart failure. Continue diuretics. Restrict fluid intake to less than 1500 mL in 24 hours. Please follow-up with your primary doctor for reassessment of new finding of diabetes. Please maintain diabetic diet. Your A1c was 7 Bedbugs were found on your belongings, please seek an appointment with an rn orthopaedics for fumigation of your home to eradicate them. Discharge Attestations Time Spent in Discharge Care*: greater than 30 min Quality Metrics Clinical Quality Measures [ No reported AMI, CVA or VTE this stay] Coding Level of Care Code 72018 Total time (in minutes) for Discharge: 45 Diagnoses Lymphedema I89.0 Stasis dermatitis I87.2 Cellulitis L03.90
== END 2024-03-15 14:54 | disposition home health service (06) | DRG 602 ==
LOC: ER 20:54 → MEDSURG 21:08
PROVIDERS: Admitting Provider Family Medicine; Emergency Provider Emergency Medicine; PCP Nurse Practitioner; Visit Provider Internal Medicine
DX: L03.116 Cellulitis of left lower limb (principal); I50.33 Acute on chronic diastolic (congestive) heart failure; Z68.43 Body mass index [BMI] 50.0-59.9, adult; L03.115 Cellulitis of right lower limb; E11.51 Type 2 diabetes mellitus with diabetic peripheral angiopathy without gangrene; I87.2 Venous insufficiency (chronic) (peripheral); F17.210 Nicotine dependence, cigarettes, uncomplicated; J44.9 Chronic obstructive pulmonary disease, unspecified; E66.01 Morbid (severe) obesity due to excess calories; I11.0 Hypertensive heart disease with heart failure; E03.9 Hypothyroidism, unspecified; I48.91 Unspecified atrial fibrillation; B85.2 Pediculosis, unspecified; E87.70 Fluid overload, unspecified; E87.6 Hypokalemia; Z79.01 Long term (current) use of anticoagulants; Z88.0 Allergy status to penicillin; Z82.3 Family history of stroke; Z83.3 Family history of diabetes mellitus; Z80.9 Family history of malignant neoplasm, unspecified
CPT/HCPCS: 36415; 51702; 73590; 80048; 80053; 81001; 83036; 83605; 83880; 84145; 84443; 85025; 85651; 86140; 87040; 93971; 96365; 99285; J0744; J2185; J2270; J2470; J3370; J3490; J7050

== ENCOUNTER 2024-09-15 12:22 | Inpatient (IN) | payer MEDICARE, SELFPAY ==
--- OUTSIDE RECORDS SUMMARY | 2024-07-11 09:00 | XMS_ITS ---
Author Organization [facility] Address [address] [place] [id number] Care Team Providers Care Help Desk Manager Name Role Phone Sherrell Unavailable [phone] REASON FOR VISIT f/u and review labs Social History Sex Assigned At : Social History Observation Description Sex Assigned At Female Encounters Encounter Location Date Provider Diagnosis [facility] [address] [address] 07/11/2024 Sherrell Lakhani Plan Of Treatment No Information Progress Notes * Odalis REED GDOB: (69 yo F)Acc No.[id number]:07/11/2024 Patient: Odalis RICHARDSON Provider: Gabby Lakhani :1955 A ge:69 Y S ex:Female Date:07/11/2024 [facility] [facility] [id number] Subjective: * Chief Complaints: * 1 . F/u and review labs. * Medical History: Objective: * Vitals: Assessment: Plan: * Treatment: * Billing Information: * Visit Code: * Procedure Codes: * Electronic signature of JIMMY Stone i on 09/16/2024 at 07:13 AM CDT Sign off status: Pending * Provider: Gabby Lakhani Date: 0 07/11/2024 Generated for Alexandri ng/Faxing/eTransmitting on: 0 09/16/2024 07:13 AM CDT
--- OUTSIDE RECORDS SUMMARY | 2024-07-15 05:40 | XMS_ITS ---
Author Organization [facility] Address [address] [address] Care Team Providers Care Production Support Manager Name Role Phone Sherrell Unavailable [phone] REASON FOR VISIT f/u and review labs; CCA Social History Sex Assigned At : Social History Observation Description Sex Assigned At Female Encounters Encounter Location Date Provider Diagnosis [facility] [address] [address] 07/15/2024 Sherrell Lakhani Plan Of Treatment No Information Progress Notes * Odalis REED GDOB: (69 yo F)Acc No.[id number]:07/15/2024 Patient: Odalis RICHARDSON Provider: Gabby Lakhani :1955 A ge:69 Y S ex:Female Date:07/15/2024 Address[address] [id number] Subjective: * Chief Complaints: * 1 . f/u and review labs; CCA. * Medical History: Objective: * Vitals: Assessment: Plan: * Treatment: * Billing Information: * Visit Code: * Procedure Codes: * Electronic signature of JIMMY Stone i on 09/16/2024 at 07:12 AM CDT Sign off status: Pending * Provider: Gabby Lakhani Date: 0 07/15/2024 Generated for Travon ng/Faxing/eTransmitting on: 09/16/2024 07:12 AM CDT
--- OUTSIDE RECORDS SUMMARY | 2024-09-05 03:40 | XMS_ITS ---
Author Organization [facility] Address [address] [place] [id number] Care Team Providers Care Fire Engine Operator Name Role Phone Sherrell Unavailable [phone] REASON FOR VISIT open wounds on both legs Social History Sex Assigned At : Social History Observation Description Sex Assigned At Female Encounters Encounter Location Date Provider Diagnosis [address] [address] 09/05/2024 Sherrell Lakhani Plan Of Treatment No Information Progress Notes * Odalis BIRD GDOB: (69 yo F)Acc No.[id number]:09/05/2024 Patient: Odalis RICHARDSON Provider: Gabby Lakhani :1955 A ge:69 Y S ex:Female Date:09/05/2024 [address] [facility] [id number] Subjective: * Chief Complaints: * 1 . Open wounds on both legs. * Medical History: Objective: * Vitals: Assessment: Plan: * Treatment: * Billing Information: * Visit Code: * Procedure Codes: * Electronic signature of JIMMY Stone i on 09/16/2024 at 07:14 AM CDT Sign off status: Pending * Provider: Gabby Lakhani Date: 09/05/2024 Generated for Travon ng/Faxing/eTransmitting on: 09/16/2024 07:14 AM CDT
[2024-09-15] VITALS (13 sets, daily range): BP systolic 123–163; BP diastolic 53–88; PULSE 48–64; RESP 16–20; TEMP 36.6–36.8; O2SAT 93–99; BMI 53.0
[2024-09-15 13:16] LABS: Basophils # 0.1 10^3/uL (0.0-0.1); Basophils % 0.5 %; Eosinophils # 0.2 10^3/uL (0.0-0.8); Eosinophils % 1.3 %; Hematocrit 37.6 % (36-47); Lymphocytes # 1.3 10^3/uL (0.8-4.8); Lymphocytes % 10.6 %; Mean Corpuscular HGB Conc 29.3 g/dL (30-55); Mean Corpuscular Hemoglobin 25.1 pg (27-33); Mean Corpuscular Volume 85.6 fl (85-98); Mean Platelet Volume 9.2 fL (7.4-10.4); Monocytes % 8.2 %; Neutrophils # 9.45 10^3/uL (1.8-7.7); Neutrophils % 78.7 %; Nucleated Red Blood Cells % 0 %; Platelet Count 304 10^3/cmm (157-399); Red Blood Count 4.39 10^6/uL (3.85-5.65); Red Cell Distribution Width 17.7 % (12.1-15.1); White Blood Count 12.01 10^3/uL (3.29-11.43)
--- NOTE | 2024-09-15 13:23 | W.ED.EXTPRO ---
HPI - Extremity Problem General: Chief complaint: Extremity Problem,Nontraumatic Stated complaint: wounds on legs Time Seen by Provider: 09/15/24 12:51 History of Present Illness: 69-year-old female presents with chronic bilateral lower extremity leg swelling and venous stasis changes. She reports Associated symptoms: Deny chest pain Related Data Home Medications ?Medication ?Instructions ?Recorded ?Confirmed bumetanide 2 mg tablet 2 mg PO QAM 11/06/23 09/15/24 tirzepatide 5 mg/0.5 mL 5 mg SUBCUT Q7D 09/15/24 09/15/24 subcutaneous pen injector (Alexy) Previous Rx's ?Medication ?Instructions ?Recorded apixaban 5 mg tablet (Eliquis) 5 mg PO BID #60 tabs 04/24/23 levothyroxine 75 mcg tablet 75 mcg PO DAILY #30 tabs 04/24/23 metolazone 5 mg tablet 5 mg PO DAILY #30 tabs 04/24/23 metoprolol succinate 50 mg 50 mg PO DAILY #30 tabs 04/24/23 tablet,extended release 24 hr metformin 500 mg tablet 500 mg PO BID #180 tabs 03/15/24 Allergies Allergy/AdvReac Type Severity Reaction Status Date / Time aspirin Allergy ALGY-Anaphy Verified 01/03/24 14:51 laxis nicotine Allergy ALGY-Rash Verified 01/03/24 14:51 Penicillins Allergy ALGY-Rash Verified 01/03/24 14:51 procaine (From Novocain) Allergy ADR-Halluci Verified 01/03/24 14:51 nating Review of Systems Card: Denies: chest pain or palpitations Resp: Denies: dyspnea or productive cough GI: Denies: abdominal pain, nausea or vomiting Musc: Reports: extremity swelling Skin/Breast: Reports: changes in skin color and other (please see hpi ) Neuro: Denies: headache(s) PFSH ED PFSH: Medical History COPD (chronic obstructive pulmonary disease) Morbid obesity Atrial fibrillation/flutter Benign essential HTN Family History Mother Stroke Aneurysm Father Stroke Brother Diabetes mellitus, type 2 Cancer Social History Smoking and tobacco/nicotine status: current every day tobacco/nicotine user (0.5 ppd) cigarettes Packs smoked per day: 1 Years cigarettes smoked: 55 [ Other cigarette details: Started at age 13] Adopted: No Number of children: 4 Physical Exam Const: COMMON NORMALS: no acute distress, patient oriented x3 and alert GENERAL APPEARANCE: other (Unkept) NUTRITIONAL APPEARANCE: obese Resp: COMMON NORMALS: normal respiratory effort, No use of accessory muscles and clear to auscultation bilaterally AUSCULTATION: clear to auscultation bilaterally Cardio: COMMON NORMALS: regular rate and regular rhythm RATE: regular rate RHYTHM: regular rhythm GI: COMMON NORMALS: Soft to palpation and non-tender PALPATION: Yes Soft to palpation Extremity: NARRATIVE EXTREMITY EXAM: Bilateral lower extremity 3+ edema with chronic venous stasis changes. Neuro: COMMON NORMALS: patient oriented x3 SENSORIUM/ORIENTATION: Yes alert Psych: COMMON NORMALS: mental status grossly normal and Normal thought process present THOUGHT PROCESS: Normal thought process present Skin: NARRATIVE SKIN EXAM: Bilateral chronic venous stasis changes and erythema with multiple wounds on the left leg with purulent drainage Course Vital Signs: Vital signs: Vital Signs Temperature 98.3 F 09/15/24 12:25 Pulse Rate 60 09/15/24 13:30 Respiratory Rate 18 09/15/24 13:30 Blood Pressure 156/88 09/15/24 13:30 Pulse Oximetry 99 09/15/24 13:30 Oxygen Delivery Me thod Room Air 09/15/24 13:30 MDM - Extremity (Nontraumatic) Medical Decision Making Patient with slightly elevated white count. Patient with significant bilateral lower extremity edema swelling with wound infection and purulent drainage on the left leg. She was given Rocephin in the ER. Patient will be admitted to Dr. Cooper for further inpatient management. Patient's other medications are near her baseline. Lab Data 09/15/24 13:09 09/15/24 13:09 Laboratory Results WBC 12.01 10^3/uL (3.29-11.43) H 09/15/24 13:09 RBC 4.39 10^6/uL (3.85-5.65) 09/15/24 13:09 Hgb 11.00 g/dL (11.27-16.99) L 09/15/24 13:09 Hct 37.6 % (36-47) 09/15/24 13:09 MCV 85.6 fl (85-98) 09/15/24 13:09 MCH 25.1 pg (27-33) L 09/15/24 13:09 MCHC 29.3 g/dL (30-55) L 09/15/24 13:09 RDW 17.7 % (12.1-15.1) H 09/15/24 13:09 Plt Count 304 10^3/cmm (157-399) 09/15/24 13:09 MPV 9.2 fL (7.4-10.4) 09/15/24 13:09 Neut % (Auto) 78.7 % 09/15/24 13:09 Lymph % (Auto) 10.6 % 09/15/24 13:09 Bullock % (Auto) 8.2 % 09/15/24 13:09 Eos % (Auto) 1.3 % 09/15/24 13:09 Baso % (Auto) 0.5 % 09/15/24 13:09 Neut # (Auto) 9.45 10^3/uL (1.8-7.7) H 09/15/24 13:09 Lymph # (Auto) 1.3 10^3/uL (0.8-4.8) 09/15/24 13:09 Bullock # (Auto) 1.0 10^3/uL (0.2-0.9) H 09/15/24 13:09 Eos # (Auto) 0.2 10^3/uL (0.0-0.8) 09/15/24 13:09 Baso # (Auto) 0.1 10^3/uL (0.0-0.1) 09/15/24 13:09 Nucleated RBC % (auto) 0 % 09/15/24 13:09 Nucleated RBCs # 0.0 /100WBC 09/15/24 13:09 Sodium 132 mmol/L (136-145) L 09/15/24 13:09 Potassium 4.8 mmol/L (3.5-5.1) 09/15/24 13:09 Chloride 97 mmol/L (98-107) L 09/15/24 13:09 Carbon Dioxide 22 mmol/L (22-29) 09/15/24 13:09 Anion Gap 17.8 (5-19) 09/15/24 13:09 BUN 13 mg/dL (8-23) 09/15/24 13:09 Creatinine 1.0 mg/dL (0.5-0.9) H 09/15/24 13:09 GFR Calculation 55.0 mL/min (90-130) L 09/15/24 13:09 Glucose 156 mg/dL (65-115) H 09/15/24 13:09 Calculated Osmolality 277 mOsm/kg (285-295) L 09/15/24 13:09 Lactic Acid 2.1 mmol/L (0.5-2.2) 09/15/24 13:16 Calcium 9.1 mg/dL (8.5-10.5) 09/15/24 13:09 Total Bilirubin 0.4 mg/dL (0.15-1.2) 09/15/24 13:09 AST 13 U/L (0-32) 09/15/24 13:09 ALT 12 U/L (0-33) 09/15/24 13:09 Alkaline Phosphatase 108 U/L (35-105) H 09/15/24 13:09 NT-Pro-B Natriuret Pep 86 pg/mL (0-125) 09/15/24 13:09 Total Protein 7.3 g/dL (6.6-8.7) 09/15/24 13:09 Albumin 3.4 g/dL (3.5-5.2) L 09/15/24 13:09 Globulin 3.9 g/dL (1.3-4.6) 09/15/24 13:09 No radiology studies performed this visit Discharge Plan Discharge Patient Disposition: Admitted As Inpatient Clinical Impression: Stasis dermatitis, Morbid obesity, Lymphedema, Wound infection Condition: Stable Coding Level of Care Code ED Wrestling Coach for Jeanette Danielson
[2024-09-15] MEDS: cefTRIAXone 1,000 mg SDV 1000 MG IVP (13:28)
[2024-09-15 13:42] LABS: Lactic Sepsis W/Reflex 2.1 mmol/L (0.5-2.2)
[2024-09-15 13:47] LABS: Alanine Aminotransferase 12 U/L (0-33); Albumin Level 3.4 g/dL (3.5-5.2); Alkaline Phosphatase 108 U/L (35-105); Anion Gap 17.8 (5-19); Aspartate Amino Transferase 13 U/L (0-32); Blood Urea Nitrogen 13 mg/dL (8-23); Calcium 9.1 mg/dL (8.5-10.5); Carbon Dioxide 22 mmol/L (22-29); Chloride 97 mmol/L (98-107); Globulin 3.9 g/dL (1.3-4.6); Glucose 156 mg/dL (65-115); NT Pro B Type Natriuretic Pept 86 pg/mL (0-125); Osmolality Calculated 277 mOsm/kg (285-295); Potassium 4.8 mmol/L (3.5-5.1); Sodium 132 mmol/L (136-145); Total Bilirubin 0.4 mg/dL (0.15-1.2); Total Protein 7.3 g/dL (6.6-8.7)
--- NOTE | 2024-09-15 14:24 | PC.NURSE ---
Patient has oxygen sats at 82% on Room air. Pt snoring in room. Woke her up and placed on 2lnc. Pt reports that she was on a cpap at [facility] but can't wear it because she is claustrophobic. Sats improved to mid- upper 90s. Provider notified.
--- NOTE | 2024-09-15 14:55 | PM.HP ---
Providers/Chief Complaint Primary Care Provider: URVASHI Galeas Chief Complaint: wounds on legs History of Present Illness Odalis Bird is a 69 year old female with a past medical history of COPD, history of smoking, morbid obesity, hypertension, hypothyroidism, atrial fibrillation/flutter, lymphedema who presents to [facility] due to increased shortness of breath, increased lower extremity edema, with areas of her lower extremities bilaterally with increased erythema, pain, drainage. Patient denies any fevers, chills, no cough, no nausea, no vomiting, Review of Systems Const: Denies: fever(s) or chills Card: Denies: chest pain Resp: Denies: dyspnea Medications/Allergies Home Medications ?Medication ?Instructions ?Recorded ?Confirmed ?Last Taken ?Type apixaban 5 mg tablet (Eliquis) 5 mg PO BID #60 tabs 04/24/23 09/15/24 09/14/24 Rx levothyroxine 75 mcg tablet 75 mcg PO DAILY #30 tabs 04/24/23 09/15/24 09/14/24 Rx metolazone 5 mg tablet 5 mg PO DAILY #30 tabs 04/24/23 09/15/24 Unknown Rx metoprolol succinate 50 mg 50 mg PO DAILY #30 tabs 04/24/23 09/15/24 Unknown Rx tablet,extended release 24 hr bumetanide 2 mg tablet 2 mg PO QAM 11/06/23 09/15/24 09/14/24 History metformin 500 mg tablet 500 mg PO BID #180 tabs 03/15/24 09/15/24 Unknown Rx tirzepatide 5 mg/0.5 mL 5 mg SUBCUT Q7D 09/15/24 09/15/24 Unknown History subcutaneous pen injector (Mounjaro) Allergies Allergy/AdvReac Type Severity Reaction Status Date / Time aspirin Allergy ALGY-Anaphy Verified 01/03/24 14:51 laxis nicotine Allergy ALGY-Rash Verified 01/03/24 14:51 Penicillins Allergy ALGY-Rash Verified 01/03/24 14:51 procaine (From Novocain) Allergy ADR-Halluci Verified 01/03/24 14:51 nating PFSH Acute PFSH: Medical History COPD (chronic obstructive pulmonary disease) Morbid obesity Atrial fibrillation/flutter Benign essential HTN Family History Mother Stroke Aneurysm Father Stroke Brother Diabetes mellitus, type 2 Cancer Social History Smoking and tobacco/nicotine status: current every day tobacco/nicotine user (0.5 ppd) cigarettes Packs smoked per day: 1 Years cigarettes smoked: 55 [ Other cigarette details: Started at age 13] Adopted: No Number of children: 4 Vitals/I&O/Wt Last Vital Signs Temp 98.3 F 09/15/24 12:25 Pulse 60 09/15/24 13:30 Resp 18 09/15/24 13:30 BP 156/88 09/15/24 13:30 Pulse Ox 99 09/15/24 13:30 O2 Del Method Room Air 09/15/24 13:30 09/14/24 09/15/24 09/15/24 22:59 06:59 14:59 Intake Total 0 / 0 Balance 0 / 0 Weight last 48 hrs Weight 131.542 kg Physical Exam Const: COMMON NORMALS: no acute distress and patient oriented x3 HENMT: COMMON NORMALS: normocephalic HEAD & SCALP: normocephalic Eye: COMMON NORMALS: Equal, round and reactive pupils present and EOMs intact bilaterally Neck/C-Spine: COMMON NORMALS: no JVD Resp: COMMON NORMALS: normal respiratory effort, No retractions, No use of accessory muscles and clear to auscultation bilaterally AUSCULTATION: clear to auscultation bilaterally Cardio: COMMON NORMALS: regular rate, regular rhythm, S1 normal heart sound present and S2 normal heart sound present RATE: regular rate RHYTHM: regular rhythm HEART SOUNDS: S1 normal heart sound present and S2 normal heart sound present GI: COMMON NORMALS: Normal to inspection, nondistended, normoactive bowel sounds present, Soft to palpation and non-tender Neuro: COMMON NORMALS: patient oriented x3, CN's II-XII intact bilaterally and moves all extremities Psych: COMMON NORMALS: mental status grossly normal Skin: NARRATIVE SKIN EXAM: Right person, lower extremity, multiple patches of active drainage, largest measuring 1 x 1 cm Left lower extremity, person, multiple patches of active drainage largest measuring 2 x 2 cm, active drainage, flies were seen potentially a maggot in one of the wounds 2+ pitting edema Bilateral lower extremities, onychomycosis Data 09/15/24 13:09 09/15/24 13:09 Micro: Microbiology 09/15/24 13:16 Blood Culture - Preliminary Blood SPECIMEN COLLECTED 09/15/24 13:09 Blood Culture - Preliminary Blood SPECIMEN COLLECTED A&P Assessment and plan (1) CHF exacerbation: (2) Atrial fibrillation/flutter: (3) Stasis dermatitis: (4) Morbid obesity: (5) Cellulitis: (6) Wound infection: (7) COPD (chronic obstructive pulmonary disease): (8) Lymphedema: Plan Bilateral lower extremity cellulitis - With multiple patchy areas of wounds - With concerns for diabetic wounds/ulcer -With history of stasis dermatitis, lymphedema Plan - Wound care, wet-to-dry will consult wound care tomorrow once they are on service - Consult general surgery for debridement - Wound cultures - Blood cultures - Vancomycin - Rocephin Bilateral extremity edema -Continue Lasix 40 mg IV twice daily CKD, monitor renal function Morbid obesity Type 2 diabetes mellitus, A1c, low-dose sliding scale Atrial fibrillation/flutter, continue Eliquis Full code Eliquis for DVT prophylaxis PDMP PDMP Reviewed: Not Reviewed Attestations Medical Necessity Statement*: Patient requires hospitalization, inpatient, greater than 2 midnights for bilateral lower extremity cellulitis, lymphedema, CHF Diagnoses CHF exacerbation I50.9 Atrial fibrillation/flutter I48.91; I48.92 Stasis dermatitis I87.2 Morbid obesity E66.01 Cellulitis L03.90 Wound infection T14.8XXA; L08.9 Chronic obstructive pulmonary disease, unspecified COPD type J44.9 COPD type: unspecified COPD Lymphedema I89.0
[2024-09-15 15:04] LABS: Reflex Lactate Order REFLEX LACTIC ORDERD
[2024-09-15 15:15] LABS: Procalcitonin 0.05 ng/mL (0-0.5)
[2024-09-15 15:21] LABS: C Reactive Protein 54.2 mg/L (0.0-4.9)
[2024-09-15 15:36] LABS: Erythrocyte Sedimentation Rate 89 mm/hr (0-15)
--- NOTE | 2024-09-15 16:12 | P.PN_ITS ---
Subjective 2 Subjective: 69-year-old female who presents to the [facility] with lymphedema and cellulitis lower extremities she has some chronic ulcerations on bilateral legs that I was asked to evaluate for possible need for wound care. Vitals/I&O/Wt Last Vital Signs Temp 98.3 F 09/15/24 12:25 Pulse 60 09/15/24 13:30 Resp 18 09/15/24 13:30 BP 156/88 09/15/24 13:30 Pulse Ox 99 09/15/24 13:30 O2 Del Method Room Air 09/15/24 13:30 09/15/24 09/15/24 09/15/24 06:59 14:59 22:59 Intake Total 0 / 0 Balance 0 / 0 Weight last 48 hrs Weight 290 lb Physical Exam 2 Extremity: NARRATIVE EXTREMITY EXAM: Bilateral lower extremities show evidence of chronic lymphedema, at the level of bilateral anterior legs there is some erythema that may be consistent with cellulitis. There are some small linear ulcerations in both legs 2 on the left side 1 on the right side. Healthy base. Data 09/15/24 13:09 09/15/24 13:09 Micro: Microbiology 09/15/24 13:16 Blood Culture - Preliminary Blood SPECIMEN COLLECTED 09/15/24 13:09 Blood Culture - Preliminary Blood SPECIMEN COLLECTED A&P Assessment and plan (1) Morbid obesity: (2) Wound infection: Plan On my evaluation at the bedside these wounds appear to be very superficial, I did some blunt and sharp debridement at the bedside of bilateral lower extremity ulcerations. On the left side the base of the wound appears healthy on the right side there is minimal amount of slough that can be removed with sequential debridement. Patient does not require any additional surgical intervention I agree with the assessment by the wound care team for chronic wound care and possible sequential debridements of these ulcerations. Patient shows understanding and the case was discussed with the medical team PDMP PDMP Reviewed: Not Reviewed Attestations 2 Medical Necessity Statement*: Per medical team Coding Level of Care Code Acute Code for Chg Fwd Diagnoses Morbid obesity E66.01 Wound infection T14.8XXA; L08.9
[2024-09-15 16:58] LABS: Lactic Acid level (Lactate) 0.9 mmol/L (0.5-2.2)
[2024-09-15 17:02] LABS: Glucose Point of Care 138 mg/dL (70-110)
[2024-09-15 17:04] LABS: Chol HDL Ratio 3.82 mg/dL (0.0-4.40); Cholesterol 187 mg/dL (0-200); HDL Cholesterol 49 mg/dL (60-100); LDL Cholesterol Calculated 120 mg/dL (50-129); LDL HDL Ratio 2.45 RATIO (0.00-3.22); Thyroid Stimulating Hormone 3.79 uIU/mL (0.27-4.20); Triglycerides 89 mg/dL (0-150)
[2024-09-15 17:06] LABS: Estmated Average Glucose 123; Hemoglobin A1C 5.9 % (4.0-6.0)
[2024-09-15] MEDS: bumetanide 0.25 mg/mL SDV 4 mL 1 MG IVP (17:06)
[2024-09-15] MEDS: apixaban 5 mg Tablet PO (17:06)
[2024-09-15] MEDS: pantoprazole 40 mg SDV IVP (17:06)
[2024-09-15] MEDS: ondansetron 2 mg/ML SDV 2 mL 4 MG IVP (17:34)
[2024-09-15] MEDS: morphine 4 mg/mL SDV 1 mL 2 MG IVP (17:34)
--- NOTE | 2024-09-15 17:45 | XRR_ITS ---
PROCEDURE INFORMATION: Exam: XR Left Tibia and Fibula Exam date and time: 09/15/2024 6:19 PM Age: 69 years old Clinical indication: Swelling, leg or foot TECHNIQUE: Imaging protocol: Radiologic exam of the left tibia and fibula. Views: 2 views. COMPARISON: No relevant prior studies available. FINDINGS: Bones/joints: Mild osseous demineralization. No evidence of acute fracture or dislocation. Degenerative changes of the knee and ankle. Soft tissues: Moderate to marked diffuse subcutaneous edema. XR/XR tibia fibula LT 2V [id number] IMPRESSION: No evidence of acute fracture or dislocation.
--- NOTE | 2024-09-15 17:45 | XRR_ITS ---
PROCEDURE INFORMATION: Exam: XR Right Tibia and Fibula Exam date and time: 09/15/2024 6:25 PM Age: 69 years old Clinical indication: Swelling, leg or foot; Additional info: Swealling TECHNIQUE: Imaging protocol: Radiologic exam of the right tibia and fibula. Views: 2 views. COMPARISON: CR XR tibia fibula RT 2V [id number] 03/13/2024 7:34 PM FINDINGS: Bones/joints: Mild osseous demineralization. Normal alignment. No evidence of acute fracture or dislocation. Mild degenerative changes of the knee and ankle. Soft tissues: Moderate to marked diffuse soft tissue swelling/subcutaneous edema. XR/XR tibia fibula RT 2V [id number] IMPRESSION: No evidence of acute fracture or dislocation.
[2024-09-15] MEDS: vancomycin 1,500 MG/300 ML PIGGYBACK 200 MG IV (18:08)
[2024-09-15 18:10] LABS: Bilirubin Urine Negative (Negative); Blood Urine Negative (Negative); Glucose Urine UA Negative (Normal); Ketones Urine Negative (Negative); Leukocyte Esterase Urine Negative (Negative); Nitrate Urine Positive (Negative); Protein Urine Negative (Negative); Specific Gravity, Urine 1.006 (1.005-1.030); Urine Appearance Clear (CLEAR); Urine Color Yellow (Yellow); Urobilinogen Urine 0.2 mg/dL (Negative); pH Urine 5.5 (5-7)
[2024-09-15 18:12] LABS: Add Urine Microscopic? YES; Bacteria Urine None Seen /hpf; RBC Urine 0-2 /hpf (0-2); Squamous Epithelial Cell Urine 0-5 /hpf (0-5); WBC Urine 0-5 /hpf (0-5)
[2024-09-15 20:53] LABS: Glucose Point of Care 134 mg/dL (70-110)
[2024-09-16] VITALS (8 sets, daily range): BP systolic 108–120; BP diastolic 43–74; PULSE 42–62; RESP 16–19; TEMP 36.4–36.9; O2SAT 87–96
[2024-09-16] MEDS: morphine 4 mg/mL SDV 1 mL 2 MG IVP (01:54)
[2024-09-16] MEDS: bumetanide 0.25 mg/mL SDV 4 mL 1 MG IVP ×2 (05:32→17:26)
[2024-09-16] MEDS: vancomycin 1,500 MG/300 ML PIGGYBACK 200 MG IV ×2 (06:02→17:27)
[2024-09-16 06:25] LABS: Basophils % 0.2 %; Eosinophils # 0.1 10^3/uL (0.0-0.8); Hematocrit 33.2 % (36-47); Lymphocytes # 1.3 10^3/uL (0.8-4.8); Lymphocytes % 9.8 %; Mean Corpuscular HGB Conc 30.1 g/dL (30-55); Mean Corpuscular Hemoglobin 24.9 pg (27-33); Mean Corpuscular Volume 82.8 fl (85-98); Mean Platelet Volume 9.2 fL (7.4-10.4); Monocytes % 7.4 %; Neutrophils # 10.92 10^3/uL (1.8-7.7); Neutrophils % 80.9 %; Nucleated Red Blood Cells % 0 %; Platelet Count 307 10^3/cmm (157-399); Red Blood Count 4.01 10^6/uL (3.85-5.65); Red Cell Distribution Width 17.4 % (12.1-15.1)
[2024-09-16 06:43] LABS: Glucose Point of Care 133 mg/dL (70-110)
[2024-09-16 06:43] LABS: Alanine Aminotransferase 9 U/L (0-33); Albumin Level 3.1 g/dL (3.5-5.2); Alkaline Phosphatase 100 U/L (35-105); Anion Gap 14.2 (5-19); Aspartate Amino Transferase 9 U/L (0-32); Blood Urea Nitrogen 12 mg/dL (8-23); Calcium 8.7 mg/dL (8.5-10.5); Carbon Dioxide 27 mmol/L (22-29); Chloride 100 mmol/L (98-107); Globulin 3.5 g/dL (1.3-4.6); Glomerular Filtration Rate 62.1 mL/min (90-130); Glucose 141 mg/dL (65-115); Osmolality Calculated 284 mOsm/kg (285-295); Potassium 5.2 mmol/L (3.5-5.1); Sodium 136 mmol/L (136-145); Total Bilirubin 0.3 mg/dL (0.15-1.2); Total Protein 6.6 g/dL (6.6-8.7)
--- OUTSIDE RECORDS SUMMARY | 2024-09-16 07:13 | XMS_ITS | Clinical Summary ---
Author Organization [facility] Address [address] [address] Care Team Providers Care Food Assembler Name Role Phone Neville Polanco MD Primary Care Provider [phone] Allergies Active Allergy Reactions Criticality Noted Date Comments Aspirin Swelling Low 10/03/2014 César-1 Confusion Low 10/03/2014 Diazepam Other (See Comments) 11/12/2014 Makes her combative Gabapentin Other (See Comments) 01/23/2018 changed my personality Penicillins Other (See Comments) 10/03/2014 Brusing Unclassified Drug Swelling High 06/29/2016 Bee Sting Medications wheelchairIndicati ons:Facet arthritis of lumbar region,Osteoarthri tis of lumbar spine, unspecified spinal osteoarthritis complication status,Chronic low back pain, unspecified back pain laterality, with sciatica presence unspecified,Periph eral edema 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 1 Each 04/13/19 18 Active diaper,brief,adult ,disposable (BRIEFS) 2 briefs a day. 60 Each 11 06/28/19 18 Active spironolactone (ALDACTONE) 50 mg tabletIndications: Peripheral edema,Diastolic dysfunction,Morbid obesity with body mass index of 50 or higher (CMS/HCC),Decrease d mobility Take 1 Tablet (50 mg) by mouth 2 times daily. 180 Tablet 3 09/14/19 18 Active chlorthalidone (HYGROTON) 50 mg tabletIndications: Diastolic dysfunction,Periph eral edema,Morbid obesity with body mass index of 50 or higher (CMS/HCC),Decrease d mobility Take 1 Tablet (50 mg) by mouth daily. 90 Tablet 3 09/14/19 18 Active vitamin B complex Tablet Sustained Release Take 1 Tablet by mouth daily. Active bumetanide (BUMEX) 1 mg tabletIndications: Diastolic dysfunction,Periph eral edema Take 3 Tablets (3 mg) by mouth daily. 270 Tablet 3 01/10/20 18 Active DULoxetine (CYMBALTA) 60 mg Capsule, Delayed Release(E.C.)Indic ations:Chronic bilateral low back pain with left-sided sciatica,Facet arthritis of lumbar region,Osteoarthri tis of cervical spine, unspecified spinal osteoarthritis complication status,Degeneratio n of C5-C6 intervertebral disc,Degeneration of intervertebral disc at C6-C7 level,Decreased mobility Take 1 Capsule (60 mg) by mouth daily. 90 Capsule 3 04/18/19 19 Active lidocaine (LIDODERM) 5 % Adhesive Patch, MedicatedIndicatio ns:Chronic bilateral low back pain with left-sided sciatica,Facet arthritis of lumbar region,Osteoarthri tis of cervical spine, unspecified spinal osteoarthritis complication status,Degeneratio n of C5-C6 intervertebral disc,Degeneration of intervertebral disc at C6-C7 level,Decreased mobility Apply 1 Patch to affected area every 24 hours. 30 Patch 04/18/19 19 Active ibuprofen (MOTRIN) 800 mg tabletIndications: Acute pain of left shoulder TAKE 1 TABLET BY MOUTH EVERY 8 HOURS NEEDED FOR MILD PAIN 90 Tablet 04/28/19 19 Active baclofen (LIORESAL) 10 mg tabletIndications: Acute pain of left shoulder TAKE 1 TABLET BY MOUTH ONCE DAILY AT BEDTIME 90 Tablet 1 05/17/19 19 Active walker with wheels and seatIndications:Fa cet arthritis of lumbar region,Morbid obesity with body mass index of 50 or higher (CMS/HCC),Chronic bilateral low back pain with left-sided sciatica,Diastolic dysfunction,Decrea sed mobility,Numbness of foot,Osteoarthriti s of cervical spine, unspecified spinal osteoarthritis complication status,Degeneratio n of C5-C6 intervertebral disc,Degeneration of intervertebral disc at C6-C7 level Face to Face completed within 6 months: yes (04/18/18) Length of Need: 99 months. 1 Each 03/12/20 19 Active OTHERIndications:F acet arthritis of lumbar region,Morbid obesity with body mass index of 50 or higher (CMS/HCC),Chronic bilateral low back pain with left-sided sciatica,Periphera l edema,Diastolic dysfunction,Decrea sed mobility,Osteoarth ritis of cervical spine, unspecified spinal osteoarthritis complication status,Degeneratio n of C5-C6 intervertebral disc,Degeneration of intervertebral disc at C6-C7 level,Numbness of foot,Hand numbness Evaluate and fix Electric Wheelchair as directed. 1 Device 06/22/19 Active clopidogrel (PLAVIX) 75 mg Tablet Take 1 Tablet (75 mg) by mouth daily. 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 90 Tablet 3 08/10/19 Active traMADol (ULTRAM) 50 mg tabletIndications: Chronic bilateral low back pain with left-sided sciatica,Osteoarth ritis of cervical spine, unspecified spinal osteoarthritis complication status TAKE 2 TABLETS BY MOUTH TWICE DAILY NEEDED FOR PAIN 120 Tablet 5 09/12/19 19 Active busPIRone (BUSPAR) 7.5 mg Tablet TAKE 1 TABLET BY MOUTH TWICE DAILY NEEDED FOR NERVOUSNESS 60 Tablet 11/30/19 Active Active Problems Problem Noted Date Diagnosed Date PVD (peripheral vascular disease) 07/23/2018 Hyponatremia 07/23/2018 Acquired lymphedema of lower extremity 9 Decreased mobility 09/13/2017 Mixed hyperlipidemia 05/18/2017 Degeneration of C5-C6 intervertebral disc 2016 Degeneration of intervertebral disc at C6-C7 lev el 01/09/2017 DJD (degenerative joint disease), cervical 12/09 Diastolic dysfunction 09/14/2015 Morbid obesity with body mass index of 50 or hig her 09/14/2015 Cigarette dependence 05/06/2015 Facet arthritis of lumbar region 10/16/2014 Chronic low back pain 10/16/2014 Peripheral edema 10/16/2014 Hand numbness 10/16/2014 Assessment & Plan (12/11/2016 5:11 PM CDT): Worsening. 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 Morbid obesity with BMI of 45.0-49.9, adult 10/16/2014 09/14/2015 Family History Medical History Relation Name Comments Diabetes Brother 1 Type 2 DM IDDM Cancer Brother 2 Unknown - possi ble lymphoma Hypertension Daughter 1 Diabetes Daughter 2 Type 2 DM - t controlled Melanoma Daughter 3 In remission Stroke Father anuersym Unknown Father Heart Disease Maternal Grandfather Hypertension Maternal Grandfather Stroke Maternal Grandfather Diabetes Mother Type 2 DM Stroke Mother aneursym Thyroid Disease Mother Unknown Paternal Grandfather History unknown Hypertension Paternal Grandmother Relation Name Status Comments Brother 1 Cancer Brother 2 Brother 3 Diabetic coma/d eath Daughter 1 Alive Daughter 2 Daughter 3 Father Brain aneurysm Maternal Grandfather Maternal Grandmother Mother Brain aneurysm Paternal Grandfather Paternal Grandmother Son Alive Social History Tobacco Use Types Packs/Day Years Used Date Smoking Tobacco: Every Day Cigarettes 0.8 50 Smokeless Tobacco: Never Tobacco Cessation:Ready to Q uit: No; Counseling Given: Yes Alcohol Use Standard Drinks/Week Comments Yes 1 (1 standard drink = 0.6 oz pur e alcohol) Comments No Sex and Gender Information Value Date Recorded Sex Assigned at Not on file Legal Sex Female 1:29 PM CDT Gender Identity Not on file Sexual Orientation Not on file Last Filed Vital Signs Vital Sign Reading Time Taken Comments Blood Pressure 123/85 10/02/2018 1:49 PM CDT Pulse 103 10/02/2018 1:49 PM CDT Temperature 36.4 C (97.6 F) 09/20/2018 2:31 PM CDT Respiratory Rate 18 09/20/2018 2:31 PM CDT Oxygen Saturation 95% 09/20/2018 2:31 PM CDT Inhaled Oxygen Concentration - - Weight 129.7 kg (286 lb) 10/02/2018 1:49 PM CDT Height 157.5 cm (5' 2 ) 10/02/2018 1:49 PM CDT Body Mass Index 52.31 10/02/2018 1:49 PM CDT Plan of Treatment Health Maintenance Due Date Last Done Comments DTAP/TDAP/TD VACCINES (1 - Tdap) 1974 BREAST CANCER SCREENING 1995 COLORECTAL SCREENING 2000 Colorectal Cancer Screening 2000 FIT-DNA Q 3 years 2000 FIT/FOBT Q 1 year 2000 Flex Sig/CT Colonography Q 5 years 2000 PNEUMOCOCCAL VACCINE 50+ YEA RS (1 of 1 - PCV) 2005 ZOSTER VACCINE (1 of 2) 2005 OSTEOPOROSIS SCREENING 2020 INFLUENZA VACCINE (#1) 2023 01/23/2018, 2016 RSV VACCINE (60+ or ) (1 - 1-dose 75+ series) 2030 Advance Directives For more information, please contact: [phone] Documents on File Type Date Recorded Patient Web Knitter Expl anation Advance Directive POA 07/27/2018 5:09 AM Ad gambino Directive POA Advance Directive Living Will 07/27/2018 5:09 AM Advance Directive Living Will * Full Code (Latest Code Status on File) Date Activated Date Inactivated Comments 07/23/2018 12:38 PM 07/27/2018 2:43 PM Care Teams Food Assembler Relationship Specialty Start Date End Date Neville Polanco MD [address] [place] [address] [place] [phone] PCP - General Family Practice 10/25/18
--- OUTSIDE RECORDS SUMMARY | 2024-09-16 07:13 | XMS_ITS | Encounter Summary ---
Author Organization [facility] Address [address] [place] [address] Care Team Providers Care Customer Solutions Coordinator Name Role Phone Neville Polanco MD Primary Care Provider [phone] Reason for Referral * Outpatient Services (Routine) - Closed Specialty Diagnoses / Procedures Referred By Yinka t Referred To Contact Diagnoses Peripheral edema Procedures ECHOCARDIOGRAM W/ CONTRAST AGENT ECHO COMPLETE Sherice Darnell DO [facility] Pre-Registration [place] CALL TO MAKE APPOINTMENT ONLY [address] [place] [address] Phone: tel: fax: Referral ID Status Reason Start Date Expiration Date V isits Requested Visits Authorized [id number] Closed [facility] TO SCHEDULE (SGF) 09/02/2015 10/02/2016 1 1 Encounter Details Date Type Department Care Team (Late st Contact Info) Description 09/02/2015 Ancillary Orders [facility] Family Medicine [place] [id number] [phone] Sherice Darnell DO NO ADDRESS ON FILE Peripheral edema (Primary Dx) Social History Tobacco Use Types Packs/Day Years Used Date Smoking Tobacco: Every Day Cigarettes Smokeless Tobacco: Never Alcohol Use Standard Drinks/Week Comments Yes 1 (1 standard drink = 0.6 oz pur e alcohol) Comments No Sex and Gender Information Value Date Recorded Sex Assigned at Not on file Legal Sex Female 1:29 PM CDT Gender Identity Not on file Sexual Orientation Not on file documented as of this encounter Plan of Treatment Not on file documented as of this encounter Results * ECHOCARDIOGRAM W/ CONTRAST AGENT (09/02/2015 2:16 PM CDT) EJECTION FRACTION 70 INTERFACE SYSTEM 09/02/2015 1:17 PM CDT Narrative INTERFACE SYSTEM - 09/02/2015 2:32 PM CDT [facility]-[address] [place] [id number] Transthoracic Echocardiography Patient: [place] Study ECHO COMPLETE Odalis Heath ID: Gender: F : 1955 Age: 60 Room: Study 09/02/2015 Pt Outpatient Date: Status: Study 01:17 PM CSN #: [id number] Time: Ordering:Sherice Darnell Interpreting:Tang Carroll MD Cook Starch: Claudette Altamirano [facility] Indications and History: Edema. Summary and Conclusion: - Left ventricle: The cavity size was normal. Wall thickness was increased in a pattern of moderate to severe LVH. Systolic function was vigorous. The left ventricular ejection fraction was 70%. The visually estimated ejection fraction was in the range of 65% to 70%. No diagnostic regional wall motion abnormality identified. Features are consistent with a pseudonormal left ventricular filling pattern, with concomitant abnormal relaxation and increased filling pressure (grade 2 diastolic dysfunction). - Right ventricle: The cavity size was normal. Systolic function was normal. Systolic pressure was mildly increased. The estimated peak pressure was 45mm Hg. - Aortic valve: Not well visualized. There was mild stenosis. Mean gradient: 11mm Hg (S). - Mitral valve: Mild regurgitation. - Tricuspid valve: Mild regurgitation. - No apparent intracavitary masses or thrombi detected. Procedure information: No prior study was available for comparison. Study status: Routine. Procedure: Transthoracic echocardiography. Image quality was suboptimal. The study was technically difficult due to body habitus. Scanning was performed from the parasternal, apical, subcostal, and suprasternal notch acoustic windows. Intravenous contrast (Definity) was administered to opacify the LV. Study components: M-mode, 2D, complete spectral Doppler, and color Doppler. Height: Height: 157.5cm. Height: 62in. Weight: Weight: 124.7kg. Weight: 274.4lb. Body mass index: BMI: 50.3kg/m\S\2. Body surface area: BSA: 2.42m\S\2. Blood pressure: 130/76. Patient status: Outpatient. Study date: Study date: September 02, 2015. Cardiac Anatomy: LEFT VENTRICLE: The cavity size was normal. Wall thickness was increased in a pattern of moderate to severe LVH. Systolic function was vigorous. The left ventricular ejection fraction was 70%. The visually estimated ejection fraction was in the range of 65% to 70%. No diagnostic regional wall motion abnormality identified. Features are consistent with a pseudonormal left ventricular filling pattern, with concomitant abnormal relaxation and increased filling pressure (grade 2 diastolic dysfunction). RIGHT VENTRICLE: The cavity size was normal. Systolic function was normal. Systolic pressure was mildly increased. The estimated peak pressure was 45mm Hg. LEFT ATRIUM: The atrium was normal in size. RIGHT ATRIUM: The atrium was normal in size. ATRIAL SEPTUM: No obvious PFO or ASD identified by 2D imaging and color Doppler. AORTIC VALVE: Not well visualized. Mobility was not restricted. Doppler: There was mild stenosis. No significant regurgitation. VTI ratio of LVOT to aortic valve: 0.56. Peak velocity ratio of LVOT to aortic valve: 0.53. Mean gradient: 11mm Hg (S). Peak gradient: 19mm Hg (S). MITRAL VALVE: Structurally normal valve. Mobility was not restricted. No echocardiographic evidence for prolapse. Doppler: There was no evidence for stenosis. Mild regurgitation. Valve area by pressure half-time: 3.53cm\S\2. Indexed valve area by pressure half-time: 1.46cm\S\2/m\S\2. Peak gradient: 4mm Hg (D). TRICUSPID VALVE: Structurally normal valve. Mobility was not restricted. Doppler: There was no evidence for stenosis. Mild regurgitation. PULMONIC VALVE: Not well visualized. The valve appears to be grossly normal. Doppler: There was no evidence for stenosis. No significant regurgitation. PERICARDIUM: A minimal pericardial effusion and/or fat pad was identified. AORTA: Aortic root: The aortic root was normal in size. Aortic arch: The aortic arch was normal in size. SYSTEMIC VEINS: Inferior vena cava: The vessel was normal in size. INTRACARDIAC MASS THROMBUS: No apparent intracavitary masses or thrombi detected. 2D measurements Adult Normal Range Left ventricle LVPW, ED 13.75 mm IVS/LVPW ratio, ED 1.27 <1.3 Vol ED, MOD1 93.6 ml Vol ES, MOD1 24.8 ml Stroke vol, MOD1 68.9 ml Vol index, ED, MOD1 39 ml/m\S\2 Vol index, ES, MOD1 10 ml/m\S\2 Stroke index, MOD1 28.5 ml/m\S\2 Vol ED, MOD2 *106 ml 55-101 Vol ES, MOD2 28.2 ml EF, MOD2 73.41 % Vol index, ED, MOD2 44 ml/m\S\2 Vol index, ES, MOD2 12 ml/m\S\2 Ventricular septum IVS, ED 17.46 mm Aorta Root diam, ED 33.88 mm AAo AP diam, S 35.32 mm Left atrium SI dim, A4C *56.81 mm 29-53 Area ES, A4C 14.81 cm\S\2 8.8-23.4 Vol, S 30.8 ml Vol index, S 12.8 ml/m\S\2 Right atrium SI dim, ES, A4C 47.32 mm 34-49 Doppler measurements Adult Normal Range Main pulmonary artery Pressure, S *46 mm Hg <=30 Left ventricle IVRT 81 ms 60-100 Ea, lat antonio, tiss DP 6 cm/s E/Ea, lat antonio, tiss DP 15.93 Ea, med antonio, tiss DP 5 cm/s E/Ea, med antonio, tiss DP 19.11 LVOT Peak osbaldo, S 116.94 cm/s VTI, S 27.34 cm Peak gradient, S 5 mm Hg HR 169 bpm Aortic valve Peak osbaldo, S 219.8 cm/s Mean osbaldo, S 156.55 cm/s VTI, S 49.11 cm Mean gradient, S 11 mm Hg Peak gradient, S 19 mm Hg VTI ratio LVOT/AV 0.56 Peak osbaldo ratio, LVOT/AV 0.53 Mitral valve Peak E osbaldo 95.57 cm/s Peak A osbaldo 85.38 cm/s Deceleration time 215 ms 150-230 Pressure half-time 62 ms Peak gradient, D 4 mm Hg Peak E/A ratio 1.12 Area (PHT) 3.53 cm\S\2 Area index (PHT) 1.46 cm\S\2/m\S\2 Tricuspid valve Regurg peak osbaldo 301.1 cm/s Peak RV-RA gradient, S 36 mm Hg Max regurg osbaldo 301.1 cm/s Systemic veins Estimated CVP 10 mm Hg Legend: Mean values are shown as u=mean value. Asterisk (*) maciel values outside specified normal range. [facility] are accredited with the Intersocietal Accreditation Commission - Echocardiography. Prepared and Electronically Authenticated Tang Carroll MD Confirmed 09/02/2015 14:32 Procedure Note Tang Carroll MD - 09/02/2015 [facility]-[place] [address] [place] [address] [address] [place] [address] Transthoracic Echocardiography Patient: [place] Study ECHO COMPLETE Odalis Heath ID: Gender: F : 1955 Age: 60 Room: Study 09/02/2015 Pt Outpatient Date: Status: Study 01:[address] [facility] #: [id number] Time: Ordering:Sherice Darnell Interpreting:Tang Carroll MD Cook Starch: Claudette Altamirano [facility] Indications and History: Edema. Summary and Conclusion: - Left ventricle: The cavity size was normal. Wall thickness was increased in a pattern of moderate to severe LVH. Systolic function was vigorous. The left ventricular ejection fraction was 70%. The visually estimated ejection fraction was in the range of 65% to 70%. No diagnostic regional wall motion abnormality identified. Features are consistent with a pseudonormal left ventricular filling pattern, with concomitant abnormal relaxation and increased filling pressure (grade 2 diastolic dysfunction). - Right ventricle: The cavity size was normal. Systolic function was normal. Systolic pressure was mildly increased. The estimated peak pressure was 45mm Hg. - Aortic valve: Not well visualized. There was mild stenosis. Mean gradient: 11mm Hg (S). - Mitral valve: Mild regurgitation. - Tricuspid valve: Mild regurgitation. - No apparent intracavitary masses or thrombi detected. Procedure information: No prior study was available for comparison. Study status: Routine. Procedure: Transthoracic echocardiography. Image quality was suboptimal. The study was technically difficult due to body habitus. Scanning was performed from the parasternal, apical, subcostal, and suprasternal notch acoustic windows. Intravenous contrast (Definity) was administered to opacify the LV. Study components: M-mode, 2D, complete spectral Doppler, and color Doppler. Height: Height: 157.5cm. Height: 62in. Weight: Weight: 124.7kg. Weight: 274.4lb. Body mass index: BMI: 50.3kg/m\S\2. Body surface area: BSA: 2.42m\S\2. Blood pressure: 130/76. Patient status: Outpatient. Study date: Study date: September 02, 2015. Cardiac Anatomy: LEFT VENTRICLE: The cavity size was normal. Wall thickness was increased in a pattern of moderate to severe LVH. Systolic function was vigorous. The left ventricular ejection fraction was 70%. The visually estimated ejection fraction was in the range of 65% to 70%. No diagnostic regional wall motion abnormality identified. Features are consistent with a pseudonormal left ventricular filling pattern, with concomitant abnormal relaxation and increased filling pressure (grade 2 diastolic dysfunction). RIGHT VENTRICLE: The cavity size was normal. Systolic function was normal. Systolic pressure was mildly increased. The estimated peak pressure was 45mm Hg. LEFT ATRIUM: The atrium was normal in size. RIGHT ATRIUM: The atrium was normal in size. ATRIAL SEPTUM: No obvious PFO or ASD identified by 2D imaging and color Doppler. AORTIC VALVE: Not well visualized. Mobility was not restricted. Doppler: There was mild stenosis. No significant regurgitation. VTI ratio of LVOT to aortic valve: 0.56. Peak velocity ratio of LVOT to aortic valve: 0.53. Mean gradient: 11mm Hg (S). Peak gradient: 19mm Hg (S). MITRAL VALVE: Structurally normal valve. Mobility was not restricted. No echocardiographic evidence for prolapse. Doppler: There was no evidence for stenosis. Mild regurgitation. Valve area by pressure half-time: 3.53cm\S\2. Indexed valve area by pressure half-time: 1.46cm\S\2/m\S\2. Peak gradient: 4mm Hg (D). TRICUSPID VALVE: Structurally normal valve. Mobility was not restricted. Doppler: There was no evidence for stenosis. Mild regurgitation. PULMONIC VALVE: Not well visualized. The valve appears to be grossly normal. Doppler: There was no evidence for stenosis. No significant regurgitation. PERICARDIUM: A minimal pericardial effusion and/or fat pad was identified. AORTA: Aortic root: The aortic root was normal in size. Aortic arch: The aortic arch was normal in size. SYSTEMIC VEINS: Inferior vena cava: The vessel was normal in size. INTRACARDIAC MASS THROMBUS: No apparent intracavitary masses or thrombi detected. 2D measurements Adult Normal Range Left ventricle LVPW, ED 13.75 mm IVS/LVPW ratio, ED 1.27 <1.3 Vol ED, MOD1 93.6 ml Vol ES, MOD1 24.8 ml Stroke vol, MOD1 68.9 ml Vol index, ED, MOD1 39 ml/m\S\2 Vol index, ES, MOD1 10 ml/m\S\2 Stroke index, MOD1 28.5 ml/m\S\2 Vol ED, MOD2 *106 ml 55-101 Vol ES, MOD2 28.2 ml EF, MOD2 73.41 % Vol index, ED, MOD2 44 ml/m\S\2 Vol index, ES, MOD2 12 ml/m\S\2 Ventricular septum IVS, ED 17.46 mm Aorta Root diam, ED 33.88 mm AAo AP diam, S 35.32 mm Left atrium SI dim, A4C *56.81 mm 29-53 Area ES, A4C 14.81 cm\S\2 8.8-23.4 Vol, S 30.8 ml Vol index, S 12.8 ml/m\S\2 Right atrium SI dim, ES, A4C 47.32 mm 34-49 Doppler measurements Adult Normal Range Main pulmonary artery Pressure, S *46 mm Hg <=30 Left ventricle IVRT 81 ms 60-100 Ea, lat antonio, tiss DP 6 cm/s E/Ea, lat antonio, tiss DP 15.93 Ea, med antonio, tiss DP 5 cm/s E/Ea, med antonio, tiss DP 19.11 LVOT Peak osbaldo, S 116.94 cm/s VTI, S 27.34 cm Peak gradient, S 5 mm Hg HR 169 bpm Aortic valve Peak osbaldo, S 219.8 cm/s Mean osbaldo, S 156.55 cm/s VTI, S 49.11 cm Mean gradient, S 11 mm Hg Peak gradient, S 19 mm Hg VTI ratio LVOT/AV 0.56 Peak osbaldo ratio, LVOT/AV 0.53 Mitral valve Peak E osbaldo 95.57 cm/s Peak A osbaldo 85.38 cm/s Deceleration time 215 ms 150-230 Pressure half-time 62 ms Peak gradient, D 4 mm Hg Peak E/A ratio 1.12 Area (PHT) 3.53 cm\S\2 Area index (PHT) 1.46 cm\S\2/m\S\2 Tricuspid valve Regurg peak osbaldo 301.1 cm/s Peak RV-RA gradient, S 36 mm Hg Max regurg osbaldo 301.1 cm/s Systemic veins Estimated CVP 10 mm Hg Legend: Mean values are shown as u=mean value. Asterisk (*) maciel values outside specified normal range. [facility] are accredited with the Intersocietal Accreditation Commission - Echocardiography. Prepared and Electronically Authenticated Tang Carroll MD Confirmed 09/02/2015 14:32 us Sherice Darnell DO US ORDERABLES Final Result Performing Organization Address [facility] Co de Phone Number INTERFACE SYSTEM Refer to clinic/hospital department documented in this encounter Visit Diagnoses Diagnosis Peripheral edema Edema Peripheral edema- Primary Edema documented in this encounter Care Teams Customer Solutions Coordinator Relationship Specialty Start Date End Date Neville Polanco MD [address] [place] [phone] PCP - General Family Practice 10/25/18 documented as of this encounter
--- OUTSIDE RECORDS SUMMARY | 2024-09-16 07:13 | XMS_ITS | Encounter Summary ---
Author Organization [facility] Address [address] [place] [address] Care Team Providers Care Machine Room Operator Name Role Phone Neville Polanco MD Primary Care Provider [phone] Reason for Referral * Outpatient Services (Routine) - Closed Specialty Diagnoses / Procedures Referred By Yinka poole Referred To Contact Diagnoses Chronic pain Procedures XR FLUORO NEEDLE GUIDANCE Nathaly Crespo DO [address] [place] [address] Phone: tel: fax: Referral ID Status Reason Start Date Expiration Date Visits Re quested Visits Authorized [id number] Closed 12/03/2014 01/03/2016 1 1 Encounter Details Date Type Department Care Team (Late st Contact Info) Description 12/03/2014 Ancillary Orders [facility] Pain Management Procedures [place] [address] [place] [address] Nathaly Crespo DO [address] [address] Chronic pain (Primary Dx) Social History Tobacco Use Types [...] documented as of this encounter Results * XR FLUORO NEEDLE GUIDANCE (12/03/2014 8:21 AM CDT) Narrative Jude Chester, RT - 12/03/2014 8:22 AM CDT Order information only. Exam was auto-finalized. us Nathaly Crespo DO DIAGNOSTIC IMAGING ORDERABLE S Final Result documented in this encounter Visit Diagnoses Diagnosis Chronic pain- Primary Other chronic pain Chronic pain Other chronic pain documented in this encounter Care Teams Machine Room Operator Relationship Specialty Start Date End Date Neville Polanco MD [address] [place] [phone] PCP - General Family Practice 10/25/18 documented as of this encounter
--- OUTSIDE RECORDS SUMMARY | 2024-09-16 07:14 | XMS_ITS | Patient Health Record ---
[facility] Address [address] [address] Care Team Providers Care Mail Handler Sorter Name Role Phone Sherrell Lakhani Unavailable [phone] Allergies Allergen (clinical drug ingredient) Drug/Non Drug Allergy documented on EMR Reaction Allergy Type Onset Date Status penicillin V Penicillin V Potassium rash Drug Allergy Active nicotine Nicotine Step 1 localized arm swelling Drug Allergy Active Aspirin Adult throat swelling. can take ibuprofen Drug Allergy Active Results Component Value Reference Range Notes COMPREHENSIVE METABOLIC PANE L ([id number]) Reviewed date:10/23/2023 07:09:57 PM Interpretation: Performing Lab:[place], [facility]-[id number] Rosemarie Millan, [id number] Zach Hammond MD Notes/Report: 0 0 0 GLUCOSE 121 65-99 mg/dL Fasting reference interval For someone without known diabetes, a glucose value between 100 and 125 mg/dL is consistent with prediabetes and should be confirmed with a follow-up test. UREA NITROGEN (BUN) 22 7-25 mg/dL CREATININE 1.09 0.50-1.05 mg/dL EGFR 55 > OR = 60 mL/min/1.73m2 BUN/CREATININE RATIO 20 6-22 (calc) SODIUM 134 135-146 mmol/L POTASSIUM 3.5 3.5-5.3 mmol/L CHLORIDE 87 98-110 mmol/L CARBON DIOXIDE 32 20-32 mmol/L CALCIUM 9.2 8.6-10.4 mg/dL PROTEIN, TOTAL 6.9 6.1-8.1 g/dL ALBUMIN 3.6 3.6-5.1 g/dL GLOBULIN 3.3 1.9-3.7 g/dL (calc) ALBUMIN/GLOBULIN RATIO 1.1 1.0-2.5 (calc) BILIRUBIN, TOTAL 0.4 0.2-1.2 mg/dL ALKALINE PHOSPHATASE 115 37-153 U/L AST 15 10-35 U/L ALT 13 6-29 U/L CBC (INCLUDES DIFF/PLT) (639 [id number]) Reviewed date:10/23/2023 07:09:58 PM Interpretation: Performing Lab:Alexandrea SMITH-[id number] James [id number] Zach Hammond MD Notes/Report: 0 0 0 WHITE BLOOD CELL COUNT 13.4 3.8-10.8 Thousand/ uL RED BLOOD CELL COUNT 4.66 3.80-5.10 Million/uL HEMOGLOBIN 13.7 11.7-15.5 g/dL HEMATOCRIT 44.5 35.0-45.0 % MCV 95.5 80.0-100.0 fL MCH 29.4 27.0-33.0 pg MCHC 30.8 32.0-36.0 g/dL RDW 15.5 11.0-15.0 % PLATELET COUNT 302 140-400 Thousand/uL MPV 9.7 7.5-12.5 fL ABSOLUTE NEUTROPHILS 62095 9432-5434 cells/uL ABSOLUTE LYMPHOCYTES 2077 850-3900 cells/uL ABSOLUTE MONOCYTES 737 200-950 cells/uL ABSOLUTE EOSINOPHILS 322 15-500 cells/uL ABSOLUTE BASOPHILS 94 0-200 cells/uL NEUTROPHILS 75.9 LYMPHOCYTES 15.5 MONOCYTES 5.5 EOSINOPHILS 2.4 BASOPHILS 0.7 HEMOGLOBIN A1c (496) Reviewed date:10/23/2023 07:09:58 PM Interpretation: Performing Lab:Alexandrea SMITH-[id number] Rosemarie Millan [id number] Zach Hammond MD Notes/Report: 0 0 0 HEMOGLOBIN A1c 7.1 <5.7 % of total Hgb For someone without known diabetes, a hemoglobin A1c value of 6.5% or greater indicates that they may have diabetes and this should be confirmed with a follow-up test. For someone with known diabetes, a value <7% indicates that their diabetes is well controlled and a value greater than or equal to 7% indicates suboptimal control. A1c targets should be individualized based on duration of diabetes, age, comorbid conditions, and other considerations. Currently, no consensus exists regarding use of hemoglobin A1c for diagnosis of diabetes for children. This test was performed on the Yuni julisa c503 platform. Effective 06/12/23, a change in test platforms from the [employer] to the Yuni julisa c503 may have shifted HbA1c results compared to historical results. Based on laboratory validation testing conducted at [facility], the Yuni platform relative to the Couch platform had an average increase in HbA1c value of < or = 0.3%. This difference is within accepted variability established by the National Glycohemoglobin Standardization Program. Note that not all individuals will have had a shift in their results and direct comparisons between historical and current results for testing conducted on different platforms is not recommended. COMPREHENSIVE METABOLIC PANE L (37733) Reviewed date:01/15/2024 12:02:17 AM Interpretation: Performing Lab:[facility]-[id number] Rosemarie [facility], [id number] Zach Hammond MD Notes/Report: 0 0 GLUCOSE 110 65-99 mg/dL Fasting reference interval For someone without known diabetes, a glucose value between 100 and 125 mg/dL is consistent with prediabetes and should be confirmed with a follow-up test. UREA NITROGEN (BUN) 22 7-25 mg/dL CREATININE 1.17 0.50-1.05 mg/dL EGFR 51 > OR = 60 mL/min/1.73m2 BUN/CREATININE RATIO 19 6-22 (calc) SODIUM 137 135-146 mmol/L POTASSIUM 4.4 3.5-5.3 mmol/L CHLORIDE 87 98-110 mmol/L CARBON DIOXIDE 35 20-32 mmol/L CALCIUM 9.6 8.6-10.4 mg/dL PROTEIN, TOTAL 7.7 6.1-8.1 g/dL ALBUMIN 3.8 3.6-5.1 g/dL GLOBULIN 3.9 1.9-3.7 g/dL (calc) ALBUMIN/GLOBULIN RATIO 1.0 1.0-2.5 (calc) BILIRUBIN, TOTAL 0.6 0.2-1.2 mg/dL ALKALINE PHOSPHATASE 103 37-153 U/L AST 24 10-35 U/L Results slightl y increased due to hemolysis. ALT 9 6-29 U/L TSH W/REFLEX TO FT4 (75857) Reviewed date:01/15/2024 12:02:17 AM Interpretation: Performing Lab:[facility]-Rirnro41231 Rosemarieedel Millan, [id number] Zach Hammond MD Notes/Report: 0 0 TSH W/REFLEX TO FT4 2.88 0.40-4.50 mIU/L LIPID PANEL, STANDARD (7600) Reviewed date:07/11/2024 07:34:07 AM Interpretation: Performing Lab:[facility]-[id number] Rosemarie Millan, [id number] Zach Hammond MD Notes/Report: 0 0 0 0 0 CHOLESTEROL, TOTAL 244 <200 mg/dL HDL CHOLESTEROL 49 > OR = 50 mg/dL TRIGLYCERIDES 146 <150 mg/dL LDL-CHOLESTEROL 166 Reference range: <100 Desirable range <100 mg/dL for primary prevention; <70 mg/dL for patients with CHD or diabetic patients with > or = 2 CHD risk factors. LDL-C is now calculated using the Julian calculation, which is a validated novel method providing better accuracy than the Friedewald equation in the estimation of LDL-C. Rafa SS et al. PAPO. 2013;310(19): 7224-2672 (http://education.Meican.Doorman/faq/WJI656) CHOL/HDLC RATIO 5.0 <5.0 (calc) NON HDL CHOLESTEROL 195 <130 mg/dL (calc) For patients with diabetes plus 1 major ASCVD risk factor, treating to a non-HDL-C goal of <100 mg/dL (LDL-C of <70 mg/dL) is considered a therapeutic option. COMPREHENSIVE METABOLIC PANKanchan (18402) Reviewed date:07/11/2024 07:34:07 AM Interpretation: Performing Lab:[facility]-[id number] Rosemarie Millan, [id number] Zach Hammond MD Notes/Report: 0 0 0 0 0 GLUCOSE 105 65-99 mg/dL Fasting reference interval For someone without known diabetes, a glucose value between 100 and 125 mg/dL is consistent with prediabetes and should be confirmed with a follow-up test. UREA NITROGEN (BUN) 15 7-25 mg/dL CREATININE 0.90 0.50-1.05 mg/dL EGFR 69 > OR = 60 mL/min/1.73m2 BUN/CREATININE RATIO SEE NOTE: 6-22 (calc) Not Reported: BUN and Creatinine are within reference range. SODIUM 133 135-146 mmol/L POTASSIUM 3.6 3.5-5.3 mmol/L CHLORIDE 90 98-110 mmol/L CARBON DIOXIDE 32 20-32 mmol/L CALCIUM 9.6 8.6-10.4 mg/dL PROTEIN, TOTAL 7.2 6.1-8.1 g/dL ALBUMIN 3.9 3.6-5.1 g/dL GLOBULIN 3.3 1.9-3.7 g/dL (calc) ALBUMIN/GLOBULIN RATIO 1.2 1.0-2.5 (calc) BILIRUBIN, TOTAL 0.5 0.2-1.2 mg/dL ALKALINE PHOSPHATASE 94 37-153 U/L AST 14 10-35 U/L ALT 12 6-29 U/L CBC (INCLUDES DIFF/PLT) (639 9) Reviewed date:07/11/2024 07:34:07 AM Interpretation: Performing Lab:[facility]-[id number] Rosemarie Delacruz, [id number] Zach Hammond MD Notes/Report: 0 0 0 0 0 WHITE BLOOD CELL COUNT 14.4 3.8-10.8 Thousand/ uL RED BLOOD CELL COUNT 5.19 3.80-5.10 Million/uL HEMOGLOBIN 13.6 11.7-15.5 g/dL HEMATOCRIT 43.3 35.0-45.0 % MCV 83.4 80.0-100.0 fL MCH 26.2 27.0-33.0 pg MCHC 31.4 32.0-36.0 g/dL For adults, a slight decrease in the calculated MCHC value (in the range of 30 to 32 g/dL) is most likely not clinically significant; however, it should be interpreted with caution in correlation with other red cell parameters and the patient's clinical condition. RDW 17.4 11.0-15.0 % PLATELET COUNT 335 140-400 Thousand/uL MPV 10.4 7.5-12.5 fL ABSOLUTE NEUTROPHILS 23796 7016-7918 cells/uL ABSOLUTE LYMPHOCYTES 2333 850-3900 cells/uL ABSOLUTE MONOCYTES 734 200-950 cells/uL ABSOLUTE EOSINOPHILS 245 15-500 cells/uL ABSOLUTE BASOPHILS 72 0-200 cells/uL NEUTROPHILS 76.5 LYMPHOCYTES 16.2 MONOCYTES 5.1 EOSINOPHILS 1.7 BASOPHILS 0.5 HEMOGLOBIN A1c (496) Reviewed date:07/11/2024 07:34:07 AM Interpretation: Performing Lab:Alexandrea SMITH-[id number] Aren MccallLdmtjsCE[address] Zach Hammond MD Notes/Report: 0 0 0 0 0 HEMOGLOBIN A1c 6.2 <5.7 % For someone without known diabetes, a hemoglobin A1c value between 5.7% and 6.4% is consistent with prediabetes and should be confirmed with a follow-up test. For someone with known diabetes, a value <7% indicates that their diabetes is well controlled. A1c targets should be individualized based on duration of diabetes, age, comorbid conditions, and other considerations. This assay result is consistent with an increased risk of diabetes. Currently, no consensus exists regarding use of hemoglobin A1c for diagnosis of diabetes for children. TSH W/REFLEX TO FT4 (61166) Reviewed date:07/11/2024 07:34:07 AM Interpretation: Performing Lab:Alexandrea SMITH-[id number] Rosemarie Millan [id number] Zach Hammond MD Notes/Report: 0 0 0 0 0 TSH W/REFLEX TO FT4 3.63 0.40-4.50 mIU/L Reason For Referral Reason Pulmonology consult Diagnosis 1 Chronic obstructive pulmonary disease, unspecified COPD type (J44.9) [facility] Referring Provider First Name Sherrell Referring Provider Last Name Referring Provider [facility] taisha Referred Provider Pulmonology, [facility] General Notes Alisia Garcia 2023 12:24:33 PM >TC to [facility] Pulmonology. They are now accepting new patients., Referral faxed.Radha Wendy 10/11/2023 02:02:06 PM >TC to [facility] Pulmonology. Left message to return my call.Radha Wendy 11/01/2023 02:41:16 PM >TC to [facility] Pulmonology. Left message to return my call.Radha Wendy 11/02/2023 11:19:38 AM >TC from [facility]/ [facility] Pulmonology. Confirmed appt 11/06/23 at 1:15 pm w/ Dr. Jolly. Pt notified of appt by their clinic. Referral Priority Routine Referral Appointment Date 11/06/2023 Reason HH please for wound care. Also, needs lymphedema thx if possible Diagnosis 1 Venous stasis dermat itis (I87.2) Referral Organization [facility] Referring Provider First Name Sherrell Referring Provider Last Name Referring Provider [facility] Referred Provider [facility] General Notes Alisia Garcia 2023 04:01:05 PM >Referral faxed., Alisia Garcia 10/19/2023 10:20:07 AM >TC from [facility]. Pt's insurance is out of network., Alisia Garcia 10/19/2023 10:26:14 AM >Whom would you like to send referral to?, Sherrell Lakhani 10/23/2023 07:07:35 PM >no preference. check with [facility] please, Alisia Garcia 10/24/2023 11:38:30 AM >TC to Ryann w/ [facility]. Unsure if they take pt's insurance. Ryann requested I fax the referral and they will run the insurance and let us know., Updated referral. Faxed.Radha Wendy 10/25/2023 01:17:05 PM >TC to Ryann w/ [facility] HH. She states referral was declined and will have account executive agribusiness call me to give more details as she is unsure the reason it was declined.Radha Wendy 10/30/2023 11:33:38 AM >TC to Ryann w/ [facility]. She is sending another message to accounts dept for a returned call.Radha Wendy 10/30/2023 04:05:59 PM >Pt's Medicare active 10/26/23. Medicare number: [id number]. Pt's [facility] is inactive., Re-faxed to [facility].Radha Wendy 11/02/2023 10:51:14 AM >TC w/ [facility] on 11/01/23. Confirmed they accepted pt's referral and will be making a HV within a week. Referral Priority Routine Referral Appointment Date 11/02/2023 Medications Medication SIG (Take, Route, Frequency, Duration) Notes Start Date End Date Status metOLazone 5 mg TAKE ONE TABLET BY MOUTH ONCE DAILY for 90 Active Metoprolol Succinate ER 50 mg TAKE ONE TABLET BY MOUTH ONCE DAILY for 90 Active Levothyroxine Sodium 75 MCG 1 tablet in the morning on an empty stomach Oral Once a day for 90 days Active Potassium Chloride Sanjuanita ER 20 MEQ Oral for 30 Days 10/15/2023 Active One Touch Lancets may substitute insurance approved brand 03/30/2024 Active Bumetanide 2 MG 1 tablet Oral Once a day for 90 days 10/16/2023 Active One Touch Test Strips may substi tute insurance approved brand 03/30/2024 Active Zetia 10 MG 1 tablet Orally Once a day for 90 days 06/14/2023 Active One Touch Glucometer may substit [place] insurance approved brand 03/30/2024 Active Atorvastatin Calcium 80 MG 1 tablet Orally Once a day 04/24/2023 Active Eliquis 5 MG 1 tablet Orally Twice a day for 90 days 04/24/2023 Active Flonase Allergy Relief 50 MCG/ACT 1 spray in each nostril Nasally Once a day for 30 days 05/31/2023 Active Breztri Aerosphere 160-9-4.8 MCG/ACT 2 puffs Inhalation Twice a day for 90 days 05/31/2023 Active Cetirizine HCl 10 MG 1 tablet Oral Once a day for 90 days Active traMADol HCl 50 MG 1 tablet Orally Once a day for 30 days As needed for pain 04/08/2024 Active Social History Tobacco Use: Social History Observation Description Date Details (start date - stop date) Current Smoker 03/27/1967 - NA Sex Assigned At : Social History Observation Description Sex Assigned At Female Household Question Answer Notes Number of adults in household: 3 Number of children in household: 1 Tobacco Use/Smoking Question Answer Notes Tobacco use: current every day smoker When did you start smoking? 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 (I83.012) Active confirmed Problem 35918617257019779 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) Active confirmed Problem 013883340 Environmental allergies (Z91.09) Active confirmed Problem 72371901 Primary hypertension (I10) Active confirmed Problem 22199706 Hyperlipidemia, unspecified hyperlipidemia type (E78.5) Active confirmed Problem 514625247259394 Type 2 diabetes mellitus with hyperglycemia, without long-term current use of insulin (E11.65) Active confirmed Problem 30181753 Chronic obstruct keerthi pulmonary disease, unspecified COPD type (J44.9) Active confirmed Problem 42644346 Hypothyroidism, unspecified type (E03.9) Active confirmed Problem 327143152 Laryngopharyngea l reflux (LPR) (K21.9) Active confirmed Problem 24635068 Restrictive lung disease (J98.4) Active confirmed Problem 909051292 Venous stasis dermatitis of both lower extremities (I87.2) Active confirmed Problem 97998796 Heart failure, unspecified HF chronicity, unspecified heart failure type (I50.9) Active confirmed Problem 15036436 Current smoker (F17.200) Active confirmed Problem 2707886 Hypertensive hea rt disease with congestive heart failure, unspecified heart failure type (I11.0) Active confirmed Problem 99625825 Hypertensive hea rt disease with heart failure (I11.0) Active confirmed Problem 989877490 Dependence on wheelchair (Z99.3) Active confirmed Problem 35112013 Pain, joint, multiple sites (M25.50) Active confirmed Problem 005254336 Dependent edema (R60.9) Active confirmed Problem Dependence on wheelchair (762602138) Wheelchair dependent (Z99.3) Active confirmed Problem 385642384 Obesity, morbid, BMI 50 or higher (E66.01) Active confirmed Problem Lymphedema (305419560) Lymphedema of both lower extremities (I89.0) Active confirmed Problem 593815878 PVD (peripheral vascular disease) (I73.9) Active confirmed Problem 81309719 Congestive heart failure with left ventricular dysfunction (I50.9) Active confirmed Vital Signs Heart Rate 61 /min 03/26/2024 Temperature 98.0 degrees Fahrenheit 03/26/2024 Height-cm 154.94 cm 03/26/2024 Blood pressure diastolic 86 mm Hg 03/26/2024 Oximetry 98 % 03/26/2024 Weight-kg 132.54 kg 01/08/2024 Height 61 in 03/26/2024 Blood pressure systolic 132 mm Hg 03/26/2024 Weight 292.2 lbs 01/08/2024 BMI 55.2 kg/m2 01/08/2024 Encounters Encounter [facility] Date [facility] [address] [address] 10/18/2023 Sherrell Lakhani Congestive heart failure with left ventricular dysfunction I50.9 ; Hypertensive heart disease with heart failure I11.0 ; Other reduced mobility Z74.09 ; Other specified health status Z78.9 ; Lymphedema of both lower extremities I89.0 ; Dependent edema R60.9 ; Dependence on wheelchair Z99.3 ; PVD (peripheral vascular disease) I73.9 ; Venous stasis dermatitis I87.2 ; Cellulitis of lower extremity, unspecified laterality L03.119 ; Chronic obstructive pulmonary disease, unspecified COPD type J44.9 ; Obesity, morbid, BMI 50 or higher E66.01 ; Other injury of unspecified body region, initial encounter T14.8XXA ; Hypothyroidism, unspecified type E03.9 ; Primary hypertension I10 and Elevated glucose R73.09 [facility] [employer] [address] [address] 01/08/2024 Sherrell Lakhani Hypothyroidism, unspecified type E03.9 ; Venous stasis dermatitis of both lower extremities I87.2 ; Pain, joint, multiple sites M25.50 ; Wheelchair dependent Z99.3 ; PVD (peripheral vascular disease) I73.9 ; Congestive heart failure with left ventricular dysfunction I50.9 ; Hypertensive heart disease with heart failure I11.0 ; Elevated glucose R73.09 and Primary hypertension I10 [facility] [address] [address] 03/13/2024 Sherrell Lakhani Varicose veins of right lower extremity with ulcer of calf I83.012 ; Non-pressure chronic ulcer of right calf limited to breakdown of skin L97.211 and Cellulitis of right lower leg L03.115 [facility] [employer] [facility] [address] [place] [phone] 03/26/2024 Sherrellkolby Lakhani Type 2 diabetes mellitus with hyperglycemia, without long-term current use of insulin E11.65 ; Adverse effect of metformin, initial encounter T38.3X5A ; Lymphedema I89.0 ; Stasis dermatitis I87.2 ; Hypertensive heart disease with congestive heart failure, unspecified heart failure type I11.0 ; Skin ulcer, limited to breakdown of skin L98.491 ; Pain in joint, multiple sites M25.50 ; Hypothyroidism, unspecified type E03.9 and Primary hypertension I10 [facility] [employer] [facility] [address] [place] [phone] 07/09/2024 Sherrell Primary hypertension I10 ; Hypothyroidism, unspecified type E03.9 and Type 2 diabetes mellitus with hyperglycemia, without long-term current use of insulin E11.65 [employer] [facility] [address] [place] [phone] 10/02/2023 [facility], [facility] [address] [place] [phone] 10/05/2023 [facility], [facility] [address] [place] [phone] 10/12/2023 [facility], [facility] [address] [place] [phone] 10/23/2023 [facility], [facility] [address] [place] [phone] 10/23/2023 [facility] [employer] [facility], [facility] [address] [place] [phone] 10/26/2023 [facility], [facility] [address] [place] [phone] 10/26/2023 [facility], [facility] [address] [place] [phone] 11/01/2023 [facility] [address] [place] [phone] 11/07/2023 Sherrell [facility], [facility] [address] [place] [phone] 11/29/2023 [facility], [facility] [address] [place] [phone] 12/04/2023 [facility], [facility] [address] [place] [phone] 01/15/2024 [facility], [facility] [address] [place] [phone] 01/15/2024 [facility], [facility] [address] [place] [phone] 01/16/2024 Sherrell Mcwilliamsen Pain, joint, multipl e sites M25.50 [facility], [facility] [address] [place] [phone] 01/17/2024 [facility], [facility] [address] [place] [phone] 02/19/2024 [facility], [facility] [address] [place] [phone] 02/26/2024 [facility], [facility] [address] [place] [phone] 03/15/2024 [facility], [facility] [address] [place] [phone] 03/29/2024 Sherrell [facility], [facility] [address] [place] [phone] 04/21/2024 [facility], [facility] [address] [place] [phone] 05/23/2024 [facility], [facility] [address] [place] [phone] 06/24/2024 Sherrell Lakhani Assessments Encounter Date Diagnosis (ICD Code) Assessment Notes Treatment Notes Treatment Clinical Notes Section Notes 10/18/2023 Hypertensive heart disease with heart failure (ICD-10 - I11.0) 10/18/2023 Congestive heart failure with left ventricular dysfunction (ICD-10 - I50.9) 01/08/2024 Hypothyroidism, unspecified type (ICD-10 - E03.9) 01/08/2024 Venous stasis dermatitis of both lower extremities (ICD-10 - I87.2) elevate LEs frequently. 01/16/2024 Pain, joint, multiple sites (ICD-10 - M25.50) 03/13/2024 Varicose veins of right lower extremity with ulcer of calf (ICD-10 - I83.012) 03/13/2024 Non-pressure chronic ulcer of right calf limited to breakdown of skin (ICD-10 - L97.211) 03/26/2024 Type 2 diabetes mellitus with hyperglycemia, without long-term current use of insulin (ICD-10 - E11.65) Consider Rx for GLP-1 since she is intolerant to the metformin Insurance will likely require prior Auth 03/26/2024 Adverse effect of metformin, initial encounter (ICD-10 - T38.3X5A) 07/09/2024 Primary hypertension (ICD-10 - I10) labs drawn by Pierce Schneider LPN 03/26/2024 Lymphedema (ICD-10 - I89.0) Elevate lower extremities frequently 07/09/2024 Hypothyroidism, unspecified type (ICD-10 - E03.9) 03/13/2024 Cellulitis of right lower leg (ICD-10 - L03.115) 01/08/2024 Pain, joint, multiple sites (ICD-10 - M25.50) 10/18/2023 Other reduced mobility (ICD-10 - Z74.09) 10/18/2023 Other specified health status (ICD-10 - Z78.9) 01/08/2024 Wheelchair dependent (ICD-10 - Z99.3) 07/09/2024 Type 2 diabetes mellitus with hyperglycemia, without long-term current use of insulin (ICD-10 - E11.65) 03/26/2024 Stasis dermatitis (ICD-10 - I87.2) Continue home health 03/26/2024 Hypertensive heart disease with congestive heart failure, unspecified heart failure type (ICD-10 - I11.0) 10/18/2023 Lymphedema of both lower extremities (ICD-10 - I89.0) 01/08/2024 PVD (peripheral vascular disease) (ICD-10 - I73.9) 01/08/2024 Congestive heart failure with left ventricular dysfunction (ICD-10 - I50.9) keep f/u dr beltrán 10/18/2023 Dependent edema (ICD-10 - R60.9) 03/26/2024 Skin ulcer, limited to breakdown of skin (ICD-10 - L98.491) will ask HH to help with wound care. advised pt to d/c picking at the scab 03/26/2024 Pain in joint, multiple sites (ICD-10 - M25.50) 01/08/2024 Hypertensive heart disease with heart failure (ICD-10 - I11.0) f/u dr beltrán 10/18/2023 Dependence on wheelchair (ICD-10 - Z99.3) 10/18/2023 PVD (peripheral vascular disease) (ICD-10 - I73.9) 01/08/2024 Elevated glucose (ICD-10 - R73.09) 01/08/2024 Primary hypertension (ICD-10 - I10) meds as prescribed 10/18/2023 Venous stasis dermatitis (ICD-10 - I87.2) 03/26/2024 Hypothyroidism, unspecified type (ICD-10 - E03.9) 03/26/2024 Primary hypertension (ICD-10 - I10) 10/18/2023 Cellulitis of lower extremity, unspecified laterality (ICD-10 - L03.119) 10/18/2023 Chronic obstructive pulmonary disease, unspecified COPD type (ICD-10 - J44.9) 10/18/2023 Obesity, morbid, BMI 50 or higher (ICD-10 - E66.01) activity as tolerated. limited mobility 10/18/2023 Other injury of unspecified body region, initial encounter (ICD-10 - T14.8XXA) 10/18/2023 Hypothyroidism, unspecified type (ICD-10 - E03.9) 10/18/2023 Primary hypertension (ICD-10 - I10) 10/18/2023 Elevated glucose (ICD-10 - R73.09) 10/18/2023 Other daily wash with antibacterial soap. keep covered if draining. Call or return if worsening or not improving. will start HH referral. she is agreeable 01/08/2024 Other send labs to dr beltrán 03/13/2024 Other To [facility] ER now. Per private car by her son. 3:45 PM report given to the triage nurse at [facility] ER. Plan Of Treatment Pending Test Test Name Order Date CBC (INCLUDES DIFF/PLT) (6399) 4 HEMOGLOBIN A1c (496) 01/08/2024 Insurance Providers Payer Name Payer Address Payer Phone Subscriber Number Group Number Insured Name Patient Relationship to Insured Coverage Start Date Coverage End Date [place] [employer]-[id number] [place], [place] [id number] Odalis Bird Self - patient is the insured [address] [place] [address] [id number] Odalis Bird Self - patient is the insured 5 Medical (General) History Medical History History ICD Code CHF copd smoker spinal arthritis Hyporthyroidism tunnel vision pet dander allergy seasonal allergy difficulty sleeping chronic pain , back Lymphedema of both lower extremities I89 .0 Dependent edema R60.9 Other reduced mobility Z74.09 Dependence on wheelchair Z99.3 DJD back Surgical History Surgery Date(Month/Year) D&C 1974, 1977, 1977 partial hysterectomy 1999 vein bypass to BLE-unsuccessful 2018 Hospitalization History Reason Date(Month/Year) [facility]-migraine 2009 [facility]- pneumonia 2014 [facility] -ER 2023
--- OUTSIDE RECORDS SUMMARY | 2024-09-16 07:15 | XMS_ITS | Clinical Summary ---
Author Organization [facility] Address [address] Masonn: Epic Prelude ADT [place]EN [place]ERRA [address] Care Team Providers Care Snowblower Mechanic Name Role Phone Neville Polanco MD Primary Care Provider [phone] Allergies Active Allergy Reactions Criticality Noted Date Comments Aspirin Swelling Low 10/03/2014 César-1 Confusion Low 10/03/2014 Diazepam Other (See Comments) 11/12/2014 Makes her combative Gabapentin Other (See Comments) 01/23/2018 changed my personality Penicillins Other (See Comments) 10/03/2014 Brusing Unclassified Drug Swelling High 06/29/2016 Bee Sting Medications ibuprofen (MOTRIN) 800 mg tabletIndications: Acute pain of left shoulder TAKE 1 TABLET BY MOUTH EVERY 8 HOURS NEEDED FOR MILD PAIN 90 Tablet 0 04/28/19 19 Active lidocaine (LIDODERM) 5 % Adhesive Patch, MedicatedIndicatio ns:Chronic bilateral low back pain with left-sided sciatica,Facet arthritis of lumbar region,Osteoarthri tis of cervical spine, unspecified spinal osteoarthritis complication status,Degeneratio n of C5-C6 intervertebral disc,Degeneration of intervertebral disc at C6-C7 level,Decreased mobility Apply 1 Patch to affected area every 24 hours. 30 Patch 0 04/18/19 19 Active walker with wheels and seatIndications:Fa cet arthritis of lumbar region,Morbid obesity with body mass index of 50 or higher (CMS/HCC),Chronic bilateral low back pain with left-sided sciatica,Diastolic dysfunction,Decrea sed mobility,Numbness of foot,Osteoarthriti s of cervical spine, unspecified spinal osteoarthritis complication status,Degeneratio n of C5-C6 intervertebral disc,Degeneration of intervertebral disc at C6-C7 level Face to Face completed within 6 months: yes (04/18/18)Length of Need: 99 months. 1 Each 0 06/06/19 19 Active DULoxetine (CYMBALTA) 60 mg Capsule, Delayed Release(E.C.)Indic ations:Chronic bilateral low back pain with left-sided sciatica,Facet arthritis of lumbar region,Osteoarthri tis of cervical spine, unspecified spinal osteoarthritis complication status,Degeneratio n of C5-C6 intervertebral disc,Degeneration of intervertebral disc at C6-C7 level,Decreased mobility Take 1 Capsule (60 mg) by mouth daily. 90 Capsule 3 04/18/19 19 Active baclofen (LIORESAL) 10 mg tabletIndications: Acute pain of left shoulder TAKE 1 TABLET BY MOUTH ONCE DAILY AT BEDTIME 90 Tablet 1 05/17/19 Active OTHERIndications:F acet arthritis of lumbar region,Morbid obesity with body mass index of 50 or higher (CMS/HCC),Chronic bilateral low back pain with left-sided sciatica,Periphera l edema,Diastolic dysfunction,Decrea sed mobility,Osteoarth ritis of cervical spine, unspecified spinal osteoarthritis complication status,Degeneratio n of C5-C6 intervertebral disc,Degeneration of intervertebral disc at C6-C7 level,Numbness of foot,Hand numbness Evaluate and fix Electric Wheelchair as directed. 1 Device 0 06/22/19 Active clopidogreL (PLAVIX) 75 mg Tablet Take 1 Tablet (75 mg) by mouth daily. 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 90 Tablet 3 08/10/19 19 Active traMADoL (ULTRAM) 50 mg tabletIndications: Chronic bilateral low back pain with left-sided sciatica,Osteoarth ritis of cervical spine, unspecified spinal osteoarthritis complication status TAKE 2 TABLETS BY MOUTH TWICE DAILY NEEDED FOR PAIN 120 Tablet 5 09/12/19 19 Active vitamin B complex Tablet Sustained Release Take 1 Tablet by mouth daily. 01/09/20 18 Active busPIRone (BUSPAR) 7.5 mg Tablet TAKE 1 TABLET BY MOUTH TWICE DAILY NEEDED FOR NERVOUSNESS 60 Tablet 0 11/30/19 19 Active bumetanide (BUMEX) 1 mg tabletIndications: Diastolic dysfunction,Periph eral edema Take 3 Tablets (3 mg) by mouth daily. 270 Tablet 3 01/10/20 18 Active diaper,brief,adult ,disposable 2 briefs a day. 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 1 Each 0 04/13/19 Active chlorthalidone (HYGROTON) 50 mg tabletIndications: Peripheral edema,Diastolic dysfunction,Morbid obesity with body mass index of 50 or higher (CMS/HCC),Decrease d mobility Take 1 Tablet (50 mg) by mouth daily. 90 Tablet 3 09/14/19 Active spironolactone (ALDACTONE) 50 mg tabletIndications: Peripheral edema,Diastolic dysfunction,Morbid obesity with body mass index of 50 or higher (CMS/HCC),Decrease d mobility Take 1 Tablet (50 mg) by mouth 2 times daily. 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 Morbid obesity with BMI of 45.0-49.9, adult 10/16/2014 09/14/2015 Encounters Date Type Department Care Team Description 08/13/2024 External Device Data STL ABSTRACTION Provider, Abstract from Last 3 Months Family History Medical History Relation Name Comments [...] = 0.6 oz pur e alcohol) Comments Unknown Sex and Gender Information Value Date Recorded Sex Assigned at Not on file 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 Gender Identity Not on file Sexual Orientation Not on file Last Filed Vital Signs Vital Sign Reading Time Taken Comments Blood Pressure 123/85 10/02/2018 1:49 PM CDT Pulse 103 10/02/2018 1:49 PM CDT Temperature 36.4 C (97.6 F) 09/20/2018 2:31 PM CDT Respiratory Rate 18 09/20/2018 2:31 PM CDT Oxygen Saturation - - Inhaled Oxygen Concentration - - Weight 129.7 kg (286 lb) 10/02/2018 1:49 PM CDT Height 157.5 cm (5' 2 ) 10/02/2018 1:49 PM CDT Body Mass Index 52.31 10/02/2018 1:49 PM CDT Plan of Treatment Health Maintenance Due Date Last Done Comments Pre-Diabetes and Diabetes Screening 1955 DTAP/TDAP/TD VACCINES (1 - Tdap) 1974 PNEUMOCOCCAL VACCINE 50+ YEA RS (1 of 2 - PCV) 1974 BREAST CANCER SCREENING 1995 COLORECTAL SCREENING 2000 Colorectal Cancer Screening 2000 FIT-DNA Q 3 years 2000 FIT/FOBT Q 1 year 2000 Flex Sig/CT Colonography Q 5 years 2000 ZOSTER VACCINE (1 of 2) 2005 RSV VACCINE (60+ or ) (1 - Risk 60-74 years 1-dose series) 2015 OSTEOPOROSIS SCREENING 2020 INFLUENZA VACCINE (#1) 2023 01/23/2018, 2016 Medicare [place] ([place]) Prev entative Visit/Annual Wellness Visit 03/27/[address] [address] [id number] Advance Directives For more information, please contact: [phone] Documents on File Type Date Recorded Patient Studio Sales Associate Expl anation Advance Directive Living Will 07/27/2018 5:10 AM Advance Directive Living Will Advance Directive POA 07/27/2018 5:09 AM Ad gambino Directive POA Care Teams Snowblower Mechanic Relationship Specialty Start Date End Date Neville Polanco MD [address] [place] [address] PCP - General Family Practice 10/25/18
[2024-09-16] MEDS: apixaban 5 mg Tablet PO ×2 (09:07→17:27)
[2024-09-16] MEDS: levothyroxine 75 mcg Tablet PO (09:07)
[2024-09-16] MEDS: metoprolol succinate ER (24 HR) 50 mg Tablet PO (09:07)
[2024-09-16 10:56] LABS: Glucose Point of Care 138 mg/dL (70-110)
--- NOTE | 2024-09-16 10:59 | PHA.VACGOAL ---
Vancomycin Goal - Goal Vancomycin Goal:: 10-15 mg/L Vancomycin Indication:: SSTI (CELLULITIS) - Therapy Current therapy:: Other Antibiotic (CEFTRIAXONE) Day of therpy:: Day [2]of [] . Actual body weight (kg): 133.674 kg - Data Labs: WBC 13.50 10^3/uL (3.29-11.43) H 09/16/24 05:49 RBC 4.01 10^6/uL (3.85-5.65) 09/16/24 05:49 Hgb 10.00 g/dL (11.27-16.99) L 09/16/24 05:49 Hct 33.2 % (36-47) L 09/16/24 05:49 MCV 82.8 fl (85-98) L 09/16/24 05:49 MCH 24.9 pg (27-33) L 09/16/24 05:49 MCHC 30.1 g/dL (30-55) 09/16/24 05:49 RDW 17.4 % (12.1-15.1) H 09/16/24 05:49 Sodium 136 mmol/L (136-145) 09/16/24 05:49 Potassium 5.2 mmol/L (3.5-5.1) H 09/16/24 05:49 Chloride 100 mmol/L (98-107) 09/16/24 05:49 Carbon Dioxide 27 mmol/L (22-29) 09/16/24 05:49 Anion Gap 14.2 (5-19) 09/16/24 05:49 BUN 12 mg/dL (8-23) 09/16/24 05:49 Creatinine 0.9 mg/dL (0.5-0.9) 09/16/24 05:49 GFR Calculation 62.1 mL/min (90-130) L 09/16/24 05:49 Treatment plan:: new consult Regimen:: Patient started on vancomycin yesterday for Bilateral lower extremity cellulitis. No load dose ordered. Started on maintenance dose of 1500 mg q12h. Renal function stable today @ 0.9mg/dL. Vancomycin trough ordered for 09/17 @0500.
--- NOTE | 2024-09-16 13:34 | PM.CONSULT ---
Providers/Reason For Consult Consulting Physician/Specialty*: Wound care Reason for Consult*: Open wounds bilateral lower extremities Requesting Physician: Dr. Cooper Attending Physician: Lm Cooper MD Primary Care Provider: URVASHI Galeas History of Present Illness History of Present Illness Odalis Bird is a 69 year old female with a past medical history of COPD, obesity, hypertension, hypothyroidism, atrial fibrillation/flutter, lymphedema, and smoking. She presented to the [facility] emergency department due to increasing shortness of breath, lower extremity edema, and open ulcerations to her lower extremities. She was admitted to hospitalist service for management of CHF exacerbation, cellulitis of her lower extremities due to open wounds complicated by stasis dermatitis and lymphedema, COPD, and atrial fibrillation/flutter. Dr. Park performed debridement while the patient was still in the emergency department on the open wounds. She reports she has had lower extremity edema for many years. She reports she has been hospitalized 2-3 times in the past 5 years for infection of her lower extremities. She has used lymphedema wraps in the past, though her insurance no longer approves home health to do this anymore. She does not wear compression stockings due to her inability to don and doff them. She spends a great deal of her time in her motorized wheelchair, for which she uses due to spinal arthritis. When she is not in her wheelchair, she is either sitting in her chair or laying in bed. She reports she does elevate her legs frequently. She reports approximately 7 to 8 years ago she had a vascular intervention on her right leg at [facility] in [place], though she is unsure what procedure it was. She reports the wounds occurred due to her wheelchair getting stuck in the forward position and hitting her cot. Both occurred approximately 1 to 2 weeks ago. She reports her son came and cleaned up her legs and has been bandaging them with gauze every 2 to 3 days since the wounds occurred. Upon evaluation, she has 1 open wound to left lower extremity and 1 open wound to her right lower extremity. The wounds were covered with Xeroform and gauze upon arrival today. Her white blood cell count is 13.5 today. Review of Systems General: Reports: 10 or more systems reviewed and unremarkable except in HPI and below Const: Reports: chills (Reports occasional cold flashes which she reports are chronic ); Denies: fever(s) Card: Reports: edema and swelling of feet/ankles (For many years); Denies: chest pain or palpitations Resp: Reports: dyspnea (When lying flat); Denies: productive cough GI: Denies: abdominal pain, nausea or vomiting Skin/Breast: Reports: erythema (To bilateral lower extremities) and sores (To bilateral lower extremities) Medications/Allergies Home Medications ?Medication ?Instructions ?Recorded ?Confirmed ?Last Taken ?Type apixaban 5 mg tablet (Eliquis) 5 mg PO BID #60 tabs 04/24/23 09/15/24 09/14/24 Rx levothyroxine 75 mcg tablet 75 mcg PO DAILY #30 tabs 04/24/23 09/15/24 09/14/24 Rx metolazone 5 mg tablet 5 mg PO DAILY #30 tabs 04/24/23 09/15/24 Unknown Rx metoprolol succinate 50 mg 50 mg PO DAILY #30 tabs 04/24/23 09/15/24 Unknown Rx tablet,extended release 24 hr bumetanide 2 mg tablet 2 mg PO QAM 11/06/23 09/15/24 09/14/24 History metformin 500 mg tablet 500 mg PO BID #180 tabs 03/15/24 09/15/24 Unknown Rx tirzepatide 5 mg/0.5 mL 5 mg SUBCUT Q7D 09/15/24 09/15/24 Unknown History subcutaneous pen injector (Leiunjonathanro) Allergies Allergy/AdvReac Type Severity Reaction Status Date / Time aspirin Allergy ALGY-Anaphy Verified 01/03/24 14:51 laxis milk Allergy Unknown Verified 09/15/24 17:37 mustard Allergy ALGY-Anaphy Verified 09/15/24 17:37 laxis nicotine Allergy ALGY-Rash Verified 01/03/24 14:51 Penicillins Allergy ALGY-Rash Verified 01/03/24 14:51 procaine (From Novocain) Allergy ADR-Halluci Verified 01/03/24 14:51 nating Current Medications Generic Name Dose Route Start Last Admin Trade Name Freq PRN Reason Stop Dose Admin Apixaban 5 mg 09/15/24 18:00 09/16/24 09:07 Apixaban 5 Mg Tablet PO 5 mg BID YIN Administration Bumetanide 1 mg 09/15/24 16:35 09/16/24 05:32 Bumetanide 0.25 Mg/Ml Sdv 4 Ml IVP 1 mg Q12H YIN Administration Vancomycin HCl 1,500 mg in 300 mls @ 200 mls/hr 09/15/24 18:00 09/16/24 08:19 Vancocin IV Infused Q12H YIN Infusion Insulin Human Lispro 0 unit 09/15/24 18:00 09/16/24 11:28 Insulin Lispro 100 Unit/1 Ml SUBCUT Not Given TIDWM YIN Protocol Levothyroxine Sodium 75 mcg 09/16/24 09:00 09/16/24 09:07 Levothyroxine 75 Mcg Tablet PO 75 mcg DAILY YIN Administration Metoprolol Succinate 50 mg 09/16/24 09:00 09/16/24 09:07 Metoprolol Succinate Er (24 Hr) 50 Mg Tablet PO 50 mg DAILY YIN Administration Ondansetron HCl 4 mg 09/15/24 16:35 09/15/24 17:34 Ondansetron 2 Mg/Ml Sdv 2 Ml IVP 4 mg Q8H PRN Administration vomiting, or N/V if npo Pantoprazole Sodium 40 mg 09/15/24 16:35 09/15/24 17:06 Pantoprazole 40 Mg Sdv IVP 40 mg Q24H YIN Administration PFSH Acute PFSH: Medical History COPD (chronic obstructive pulmonary disease) Morbid obesity Atrial fibrillation/flutter Benign essential HTN Family History Mother Stroke Aneurysm Father Stroke Brother Diabetes mellitus, type 2 Cancer Social History Smoking and tobacco/nicotine status: current every day tobacco/nicotine user (0.5 ppd) cigarettes Packs smoked per day: 1 Years cigarettes smoked: 55 [ Other cigarette details: Started at age 13] Adopted: No Number of children: 4 Vitals/I&O/Wt Last Vital Signs Temp 98.2 F 09/16/24 10:58 Pulse 54 L 09/16/24 10:58 Resp 18 09/16/24 10:58 BP 109/43 09/16/24 10:58 Pulse Ox 91 06/23/25 10:58 O2 Del Method Room Air 09/16/24 10:58 O2 Flow Rate 2 09/16/24 04:00 09/15/24 09/16/24 09/16/24 22:59 06:59 14:59 Intake Total 300 / 300 250 / 550 660 / 660 Output Total 1000 / 1000 700 / 1700 Balance -700 / -700 -450 / -1150 660 / 660 Weight last 48 hrs Weight 133.674 kg Weight 131.542 kg Weight 131.542 kg Physical Exam Const: COMMON NORMALS: no acute distress, patient oriented x3 and alert GENERAL APPEARANCE: cooperative and disheveled NUTRITIONAL APPEARANCE: obese ORIENTATION/CONSCIOUSNESS: Yes awake, Yes oriented to person, Yes oriented to place and Yes oriented to time HENMT: COMMON NORMALS: normocephalic, atraumatic, hearing grossly normal bilaterally and Normal external nose present HEAD & SCALP: normocephalic and atraumatic NOSE: Normal external nose present Eye: GENERAL EYE: appearance normal, both eyes and all related structures Neck/C-Spine: GENERAL: Yes trachea midline Chest: CHEST: Yes Symmetrical chest wall rise Cardio: COMMON NORMALS: regular rate (68 on Doppler) and regular rhythm RATE: regular rate (68 on Doppler) RHYTHM: regular rhythm PERIPHERAL PULSES: posterior tibial pulses present positive bilateral dopplerable and dorsalis pedis present positive bilateral dopplerable OTHER: Capillary refill 3 seconds in distal digits of bilateral feet Extremity: OTHER: Bilateral lower extremity 2+ pitting edema; erythema to bilateral lower extremities; scaling, hyperpigmentation, papillomas, and hyperkeratosis noted to bilateral lower extremities Neuro: COMMON NORMALS: patient oriented x3 SENSORIUM/ORIENTATION: Yes alert, Yes oriented to person, Yes oriented to place and Yes oriented to time SPEECH: speech normal GAIT: Yes Staggering gait present (With transfer) Psych: COMMON NORMALS: mental status grossly normal, Normal thought process present, cooperative, normal affect and speech normal ATTITUDE: Yes calm and Yes engaged ACTIVITY/MOTOR BEHAVIOR: Yes appropriate eye contact SPEECH: Yes normal speech THOUGHT PROCESS: Normal thought process present THOUGHT CONTENT: Yes Normal thought content present JUDGEMENT: Good judgement present (Psych) Skin: OTHER: See wound assessment Data 09/16/24 05:49 09/16/24 05:49 Micro: Microbiology 09/15/24 13:16 Blood Culture - Preliminary Blood NEGATIVE TO DATE 09/15/24 13:09 Blood Culture - Preliminary Blood NEGATIVE TO DATE 09/15/24 13:23 Gram Stain - Final Leg - #1 A&P Assessment and plan (1) Lymphedema: (2) Wound infection: (3) Open wound of left lower leg with complication: (4) Open wound of right lower leg with complication: Plan Open wounds to left and right lower leg complicated by infection. Physical exam findings of the lower extremities are congruent with chronic, longstanding lymphedema. Stasis dermatitis/venous insufficiency could also be contributory to the nonhealing nature of these wounds. She would benefit from a shower with mild soap to thoroughly cleanse her lower extremities prior to wound dressing application. I have discussed this with Dr. Cooper who approves. Will recommend Santyl to promote enzymatic debridement. This should be applied to wounds once daily covered with gauze, ABD pad, and secured with Kerlix. Will use Tubigrip for very modest edema control and bandage securement. The patient reports she has had lymphedema wraps in the past that worked very well for her. I do believe this would be advantageous for her going forward. She reports she is not able to wear compression socks due to her inability to don and doff the socks. Right dorsalis pedis was diminished in comparison to right posterior tibial and left dorsalis pedis and posterior tibial with Doppler. I have recommended an arterial ultrasound to evaluate vascular status prior to lymphedema wrap application. This was relayed to Dr. Cooper. He states he will order arterial ultrasound. She was educated to elevate her legs frequently to prevent and control swelling. She should position her legs above the level of her heart if possible, using pillows or a wedge for support, for about 15-30 minutes, 3-4 times at the very minimum. Smoking cessation is encouraged Wound care will follow-up in 2 days. PDMP PDMP Reviewed: Not Reviewed Consult Attestations Time Spent in Patient Care: Greater than 35 minutes (>than 50% of time spent in counselling and/or direct pt care on unit). Coding Level of Care Code Acute Code for [facility] Fwd Diagnoses Lymphedema I89.0 Wound infection T14.8XXA; L08.9 Open wound of left lower leg with complication S81.802A Open wound of right lower leg with complication S81.801A Wound Assessment Wound Assessment Wound Number 1 Lower Leg: Cluster Wound: Yes Descriptor: Left Primary Etiology: Lymphedema Length (cm): 0.6 cm Width (cm): 8.8 cm Depth (cm): 0.2 cm Epithelialization: None Tunneling: No Undermining: No Exudate Amount: Medium Drainage Type: Serosanguineous Foul Odor After Cleansing: No Slough/Fibrin?: Yes Granulation Amount: None Necrotic Amount: Medium (34-66%) Necrotic Type: Adherent Slough Wound Number 2 Lower Leg: Descriptor: Right Primary Etiology: Lymphedema Length (cm): 0.5 cm Width (cm): 3.6 cm Depth (cm): 0.3 cm Epithelialization: None Tunneling: No Undermining: No Exudate Amount: Medium Drainage Type: Serosanguineous Foul Odor After Cleansing: No Slough/Fibrin?: Yes Granulation Amount: None Necrotic Amount: Medium (34-66%) Necrotic Type: Adherent Slough Wound Orders All Wounds: Dressing change frequency: Daily Wound Cleansing: Saline Skin Barriers/Antonette-Wound Care: Vitamin A&D Ointment Primary Wound Care Dressing: Santyl Secondary Wound Care Dressing: Gauze, ABD pad, Kerlix Edema Control: Elevate legs to heart level for 30 mins daily and/or when sitting and Tubigrip single layer Additional Orders: No adhesives on skin
--- NOTE | 2024-09-16 16:00 | USR_ITS ---
PROCEDURE INFORMATION: Exam: US Duplex Bilateral Lower Extremity Arteries Exam date and time: 09/16/2024 7:48 PM Age: 69 years old Clinical indication: Edema, localized; Lower extremity, bilateral; Additional info: Evaluate blood flow TECHNIQUE: Imaging protocol: Real-time ultrasound scan of the arteries of the bilateral lower extremities with 2-D mello scale, color Doppler flow and spectral waveform analysis. Images documented and saved. COMPARISON: CR (LOW EXM, ) 09/15/2024 6:25 PM FINDINGS: Right common femoral artery: Right common femoral, superficial femoral, profunda femoral, popliteal, posterior tibial and dorsalis pedis arteries demonstrate biphasic waveforms reflecting a degree of stenosis. Right superficial femoral artery: See above. Right popliteal artery: See above. Right calf/foot arteries: See above. Left common femoral artery: Left common femoral, superficial femoral, profunda femoral, popliteal, posterior tibial and dorsalis pedis arteries demonstrate biphasic waveforms reflecting a degree of stenosis. Severe stenosis is suspected at the left common femoral artery, and an elevated peak systolic velocity of 323 cm/s. Consider correlation with lower extremity CT angiogram. Left superficial femoral artery: See above. Left popliteal artery: See above. Left calf/foot arteries: See above. US/[place] [id number] IMPRESSION: 1. Right common femoral, superficial femoral, profunda femoral, popliteal, posterior tibial and dorsalis pedis arteries demonstrate biphasic waveforms reflecting a degree of stenosis. 2. Left common femoral, superficial femoral, profunda femoral, popliteal, posterior tibial and dorsalis pedis arteries demonstrate biphasic waveforms reflecting a degree of stenosis. Severe stenosis is suspected at the left common femoral artery, and an elevated peak systolic velocity of 323 cm/s. Consider correlation with lower extremity CT angiogram.
--- NOTE | 2024-09-16 16:03 | P.PN_ITS ---
Subjective 2 Subjective: Patient was seen this morning, currently alert oriented x 3, following all commands, she does report generalized weakness, no fevers, no chills Vitals/I&O/Wt Last Vital Signs Temp 97.5 F L 09/16/24 15:48 Pulse 42 L 09/16/24 15:48 Resp 18 09/16/24 15:48 BP 113/63 09/16/24 15:48 Pulse Ox 92 09/16/24 15:48 O2 Del Method Room Air 09/16/24 15:48 O2 Flow Rate 2 09/16/24 04:00 09/16/24 09/16/24 09/16/24 06:59 14:59 22:59 Intake Total 250 / 550 660 / 660 Output Total 700 / 1700 Balance -450 / -1150 660 / 660 Weight last 48 hrs Weight 133.674 kg Weight 131.542 kg Weight 131.542 kg Physical Exam 2 Const: COMMON NORMALS: no acute distress and patient oriented x3 Resp: COMMON NORMALS: normal respiratory effort, No retractions, No use of accessory muscles and clear to auscultation bilaterally AUSCULTATION: clear to auscultation bilaterally Cardio: COMMON NORMALS: regular rate, regular rhythm, S1 normal heart sound present and S2 normal heart sound present RATE: regular rate RHYTHM: r egular rhythm HEART SOUNDS: S1 normal heart sound present and S2 normal heart sound present GI: COMMON NORMALS: Normal to inspection, nondistended, normoactive bowel sounds present and non-tender Extremity: NARRATIVE EXTREMITY EXAM: 3+ pitting edema Neuro: COMMON NORMALS: patient oriented x3 Psych: COMMON NORMALS: mental status grossly normal Urinary Catheter Management: Dubois: Cath Placed During This Visit: yes Reason for Continuing Indwelling Catheter: Other Urinary Catheter Date of Insertion: 09/15/24 Urinary Catheter Time of Insertion: 18:17 Data 09/16/24 05:49 09/16/24 05:49 Micro: Microbiology 09/15/24 13:16 Blood Culture - Preliminary Blood NEGATIVE TO DATE 09/15/24 13:09 Blood Culture - Preliminary Blood NEGATIVE TO DATE 09/15/24 13:23 Gram Stain - Final Leg - #1 A&P Assessment and plan (1) CHF exacerbation: (2) Atrial fibrillation/flutter: (3) Stasis dermatitis: (4) Morbid obesity: (5) Cellulitis: (6) Wound infection: (7) COPD (chronic obstructive pulmonary disease): (8) Lymphedema: Plan Bilateral lower extremity cellulitis - With multiple patchy areas of wounds - With concerns for diabetic wounds/ulcer -With history of stasis dermatitis, lymphedema -Sed rate 89 Plan - Wound care, wet-to-dry will consult wound care tomorrow once they are on service - Consult general surgery for debridement, status post blunt/sharp debridement at bedside -Consult wound care - Wound cultures - Blood cultures - Vancomycin - Rocephin Bilateral extremity edema -Continue Lasix 40 mg IV twice daily CKD, monitor renal function Morbid obesity Type 2 diabetes mellitus, A1c 5.9, low-dose sliding scale Atrial fibrillation/flutter, continue Eliquis, metoprolol held due to bradycardia UTI, urine positive for nitrites, on Rocephin Full code Eliquis for DVT prophylaxis PDMP PDMP Reviewed: Not Reviewed Attestations 2 Medical Necessity Statement*: Patient requires hospitalization for bilateral extremity cellulitis Diagnoses CHF exacerbation I50.9 Atrial fibrillation/flutter I48.91; I48.92 Stasis dermatitis I87.2 Morbid obesity E66.01 Cellulitis L03.90 Wound infection T14.8XXA; L08.9 Chronic obstructive pulmonary disease, unspecified COPD type J44.9 COPD type: unspecified COPD Lymphedema I89.0
[2024-09-16 16:27] LABS: Glucose Point of Care 111 mg/dL (70-110)
[2024-09-16] MEDS: cefTRIAXone 1,000 mg SDV 1000 MG IVP (17:26)
[2024-09-16] MEDS: pantoprazole 40 mg SDV IVP (17:27)
[2024-09-16] MEDS: morphine 4 mg/mL SDV 1 mL 1 MG IVP (19:28)
[2024-09-16 21:35] LABS: Glucose Point of Care 138 mg/dL (70-110)
[2024-09-17 03:51] VITALS: BP 123/52; PULSE 59; RESP 17; TEMP 37.2; O2SAT 91
[2024-09-17 05:32] LABS: Basophils % 0.4 %; Eosinophils # 0.2 10^3/uL (0.0-0.8); Eosinophils % 1.5 %; Hematocrit 30.8 % (36-47); Lymphocytes # 1.2 10^3/uL (0.8-4.8); Lymphocytes % 11.5 %; Mean Corpuscular HGB Conc 30.2 g/dL (30-55); Mean Corpuscular Volume 82.8 fl (85-98); Mean Platelet Volume 9.4 fL (7.4-10.4); Monocytes # 0.8 10^3/uL (0.2-0.9); Monocytes % 7.4 %; Neutrophils # 8.45 10^3/uL (1.8-7.7); Neutrophils % 78.3 %; Nucleated Red Blood Cells % 0 %; Platelet Count 286 10^3/cmm (157-399); Red Blood Count 3.72 10^6/uL (3.85-5.65); Red Cell Distribution Width 17.5 % (12.1-15.1); White Blood Count 10.79 10^3/uL (3.29-11.43)
[2024-09-17] MEDS: vancomycin 1,500 MG/300 ML PIGGYBACK 200 MG IV (05:49)
[2024-09-17] MEDS: bumetanide 0.25 mg/mL SDV 4 mL 1 MG IVP ×2 (05:49→19:17)
[2024-09-17 05:51] LABS: Vancomycin Trough 22.4 ug/mL (10-15)
[2024-09-17 06:00] LABS: Alanine Aminotransferase 8 U/L (0-33); Alkaline Phosphatase 90 U/L (35-105); Anion Gap 15.5 (5-19); Aspartate Amino Transferase 9 U/L (0-32); Blood Urea Nitrogen 17 mg/dL (8-23); Calcium 8.4 mg/dL (8.5-10.5); Carbon Dioxide 25 mmol/L (22-29); Chloride 99 mmol/L (98-107); Globulin 2.6 g/dL (1.3-4.6); Glomerular Filtration Rate 49.2 mL/min (90-130); Glucose 138 mg/dL (65-115); Osmolality Calculated 284 mOsm/kg (285-295); Potassium 4.5 mmol/L (3.5-5.1); Sodium 135 mmol/L (136-145); Total Bilirubin 0.2 mg/dL (0.15-1.2); Total Protein 5.6 g/dL (6.6-8.7)
[2024-09-17 06:30] LABS: Glucose Point of Care 138 mg/dL (70-110)
[2024-09-17 07:32] VITALS: BP 98/60; PULSE 59; RESP 18; TEMP 36.9; O2SAT 91
[2024-09-17] MEDS: levothyroxine 75 mcg Tablet PO (09:07)
[2024-09-17] MEDS: apixaban 5 mg Tablet PO ×2 (09:07→19:17)
[2024-09-17 10:23] LABS: Glucose Point of Care 129 mg/dL (70-110)
--- NOTE | 2024-09-17 10:29 | PC.CHAP ---
Pastoral Care Encounter/Spiritual Assessment Type of Contact [] Declined relocation director visit [] Patient/Family/Request visit [] Outpatient visit [] Follow-up visit [] Physician referral [] Code/Alert [] Routine visit [] Staff referral [] Actively dying [x] Patient sleeping [] Family support [] [] Out of room [] Palliative care [] [] Receiving care in room [] Pre-surgical visit [] Trauma [] Long length of stay [] ICU visit [] Other: Relational/Emotional Strength [] Patient feels connected with others/family/visitors/staff [] Distress [] Loneliness/isolation [] Abandonment Spirituality of Patient [] Person of Elizabet [] Attends Shinto of their Elizabet [] Believes in Prayer [] Reads Bible or Congregational materials [] There are Spiritual issues to be addressed Intermediate Frame Tender Interventions [] Prayer [] Active listening [] Non-anxious presence [] Spiritual/emotional support [] Crisis/trauma care [] Spiritual counseling [] Bereavement support [] Provided bereavement packet [] Provided Bible/devotional materials [] Provided toy/stuffed animal, coloring book to patient or family member [] Provided Communion [] Anointing/[place] [] Salvation [] Completed spiritual assessment [] Other: Impact on Illness or Injury [] Angry [] Fearful [] Anxious [] Often cries [] Exhaustion [] Unable to work [] Unable to attend caodaism [] Unable to walk/stand [] Unable to read [] Unable to drive [] Unable to eat/drink [] Unable to sleep [] Unable to be with family [] Patient intubated [] Other: Summary Time spent with patient
[2024-09-17 12:00] VITALS: BP 138/64; PULSE 62; RESP 16; TEMP 36.3; O2SAT 90
[2024-09-17] MEDS: vitamin A & D oint 1 APPLIC TOPICAL (14:43)
[2024-09-17] MEDS: collagenase oint 30 gm 1 APPLIC TOPICAL (14:43)
[2024-09-17 15:30] VITALS: BP 110/50; PULSE 59; RESP 17; TEMP 36.7; O2SAT 90
--- NOTE | 2024-09-17 15:58 | P.PN_ITS ---
Subjective 2 Subjective: Patient was seen this morning, currently alert oriented x 3, following all commands tells me that her edema is improving no fevers, no chills we discussed her arterial ultrasound results she tells me that her left leg is really not bothering her it is more her right leg that bothers her - We had a detailed discussion she tells me that she had some sort of vascular intervention on the left many years ago she is not exactly sure Vitals/I&O/Wt Last Vital Signs Temp 98.1 F 09/17/24 15:30 Pulse 59 L 09/17/24 15:30 Resp 17 09/17/24 15:30 BP 110/50 09/17/24 15:30 Pulse Ox 90 09/17/24 15:30 O2 Del Method Room Air 09/17/24 15:30 O2 Flow Rate 2 09/16/24 04:00 09/17/24 09/17/24 09/17/24 06:59 14:59 22:59 Intake Total 203.333 / 1523.333 480 / 480 Output Total 150 / 1600 1000 / 1000 400 / 1400 Balance 53.333 / -76.667 -520 / -520 -400 / -920 Weight last 48 hrs Weight 123.377 kg Weight 133.674 kg Weight 131.542 kg Physical Exam 2 Const: COMMON NORMALS: no acute distress and patient oriented x3 Resp: COMMON NORMALS: normal respiratory effort, No retractions, No use of accessory muscles and clear to auscultation bilaterally AUSCULTATION: clear to auscultation bilaterally Cardio: COMMON NORMALS: regular rate, regular rhythm, S1 normal heart sound present and S2 normal heart sound present RATE: regular rate RHYTHM: r egular rhythm HEART SOUNDS: S1 normal heart sound present and S2 normal heart sound present GI: COMMON NORMALS: Normal to inspection, nondistended, normoactive bowel sounds present and non-tender Extremity: COMMON NORMALS: no pedal edema Neuro: COMMON NORMALS: patient oriented x3 Psych: COMMON NORMALS: mental status grossly normal Urinary Catheter Management: Dubois: Cath Placed During This Visit: yes Reason for Continuing Indwelling Catheter: Chronic Indwelling Urinary Catheter on Admission Urinary Catheter Date of Insertion: 09/15/24 Urinary Catheter Time of Insertion: 18:17 Data 09/17/24 05:04 09/17/24 05:04 Micro: Microbiology 09/15/24 13:23 Gram Stain - Final Leg - #1 Wound Culture - Preliminary Gram Negative Rods Gram Negative Rods#2 Streptococcus group c Coag positive Staphylococcus 09/15/24 13:16 Blood Culture - Preliminary Blood NEGATIVE TO DATE 09/15/24 13:09 Blood Culture - Preliminary Blood NEGATIVE TO DATE A&P Assessment and plan (1) CHF exacerbation: (2) Atrial fibrillation/flutter: (3) Stasis dermatitis: (4) Morbid obesity: (5) Cellulitis: (6) Wound infection: (7) COPD (chronic obstructive pulmonary disease): (8) Lymphedema: Plan Bilateral lower extremity cellulitis - With multiple patchy areas of wounds - With concerns for diabetic wounds/ulcer -With history of stasis dermatitis, lymphedema -Sed rate 89 Plan - Wound care, wet-to-dry will consult wound care tomorrow once they are on service - Consult general surgery for debridement, status post blunt/sharp debridement at bedside -Consult wound care - Wound cultures - Blood cultures - Vancomycin - Rocephin Bilateral extremity edema, -3 L -Continue Lasix 40 mg IV twice daily CKD, monitor renal function Morbid obesity Type 2 diabetes mellitus, A1c 5.9, low-dose sliding scale Atrial fibrillation/flutter, continue Eliquis, metoprolol held due to bradycardia UTI, urine positive for nitrites, on Rocephin PAD US/[place] [id number] IMPRESSION: 1. Right common femoral, superficial femoral, profunda femoral, popliteal, posterior tibial and dorsalis pedis arteries demonstrate biphasic waveforms reflecting a degree of stenosis. 2. Left common femoral, superficial femoral, profunda femoral, popliteal, posterior tibial and dorsalis pedis arteries demonstrate biphasic waveforms reflecting a degree of stenosis. Severe stenosis is suspected at the left common femoral artery, and an elevated peak systolic velocity of 323 cm/s. Consider correlation with lower extremity CT angiogram. - Continue Doppler pulses - Patient will follow-up with vascular/cardiology as outpatient Full code Eliquis for DVT prophylaxis PDMP PDMP Reviewed: Not Reviewed Attestations 2 Medical Necessity Statement*: Patient presents with history of cellulitis, fluid overload Diagnoses CHF exacerbation I50.9 Atrial fibrillation/flutter I48.91; I48.92 Stasis dermatitis I87.2 Morbid obesity E66.01 Cellulitis L03.90 Wound infection T14.8XXA; L08.9 Chronic obstructive pulmonary disease, unspecified COPD type J44.9 COPD type: unspecified COPD Lymphedema I89.0
[2024-09-17 16:47] LABS: Glucose Point of Care 160 mg/dL (70-110)
[2024-09-17] MEDS: cefTRIAXone 1,000 mg SDV 1000 MG IVP (19:16)
[2024-09-17] MEDS: pantoprazole 40 mg SDV IVP (19:17)
[2024-09-17] MEDS: insulin lispro 100 unit/1 mL SUBCUT (19:17)
[2024-09-17 20:00] VITALS: BP 126/50; PULSE 51; RESP 16; TEMP 36.5; O2SAT 91
[2024-09-17] MEDS: VANCOMYCIN ADD-Vantage 1,000 MG in 0.9% NaCl ADD-Vantage 250 ML 250 MG IV (20:11)
[2024-09-17 20:32] LABS: Glucose Point of Care 209 mg/dL (70-110)
[2024-09-18] VITALS (10 sets, daily range): BP systolic 128–156; BP diastolic 52–84; PULSE 53–65; RESP 16–18; TEMP 36.3–36.8; O2SAT 91–96
[2024-09-18] MEDS: bumetanide 0.25 mg/mL SDV 4 mL 1 MG IVP ×2 (04:37→17:00)
[2024-09-18 06:30] LABS: Basophils # 0.1 10^3/uL (0.0-0.1); Basophils % 0.6 %; Eosinophils # 0.2 10^3/uL (0.0-0.8); Eosinophils % 2.4 %; Hematocrit 33.2 % (36-47); Lymphocytes % 19.6 %; Mean Corpuscular HGB Conc 30.4 g/dL (30-55); Mean Corpuscular Hemoglobin 24.9 pg (27-33); Mean Platelet Volume 9.3 fL (7.4-10.4); Monocytes # 0.7 10^3/uL (0.2-0.9); Neutrophils # 6.98 10^3/uL (1.8-7.7); Neutrophils % 69.7 %; Nucleated Red Blood Cells % 0 %; Platelet Count 293 10^3/cmm (157-399); Red Blood Count 4.05 10^6/uL (3.85-5.65); Red Cell Distribution Width 17.6 % (12.1-15.1); White Blood Count 10.01 10^3/uL (3.29-11.43)
[2024-09-18 06:33] LABS: Glucose Point of Care 140 mg/dL (70-110)
[2024-09-18 06:46] LABS: Alanine Aminotransferase 8 U/L (0-33); Albumin Level 3.1 g/dL (3.5-5.2); Alkaline Phosphatase 93 U/L (35-105); Anion Gap 12.7 (5-19); Aspartate Amino Transferase 9 U/L (0-32); Blood Urea Nitrogen 14 mg/dL (8-23); Calcium 8.5 mg/dL (8.5-10.5); Carbon Dioxide 31 mmol/L (22-29); Chloride 99 mmol/L (98-107); Globulin 3.5 g/dL (1.3-4.6); Glomerular Filtration Rate 62.1 mL/min (90-130); Glucose 109 mg/dL (65-115); Osmolality Calculated 289 mOsm/kg (285-295); Potassium 3.7 mmol/L (3.5-5.1); Sodium 139 mmol/L (136-145); Total Bilirubin 0.2 mg/dL (0.15-1.2); Total Protein 6.6 g/dL (6.6-8.7)
[2024-09-18] MEDS: levothyroxine 75 mcg Tablet PO (08:20)
[2024-09-18] MEDS: apixaban 5 mg Tablet PO ×2 (08:20→17:00)
[2024-09-18] MEDS: VANCOMYCIN ADD-Vantage 1,000 MG in 0.9% NaCl ADD-Vantage 250 ML 250 MG IV (08:20)
[2024-09-18] MEDS: collagenase oint 30 gm 1 APPLIC TOPICAL (08:20)
[2024-09-18] MEDS: vitamin A & D oint 1 APPLIC TOPICAL (08:21)
--- NOTE | 2024-09-18 08:58 | PC.CHAP ---
Pastoral Care Encounter/Spiritual Assessment Type of Contact [] Declined forming and assembling supervisor visit [] Patient/Family/Request visit [] Outpatient visit [] Follow-up visit [] Physician referral [] Code/Alert [x] Routine visit [] Staff referral [] Actively dying [] Patient sleeping [] Family support [] [] Out of room [] Palliative care [] [] Receiving care in room [] Pre-surgical visit [] Trauma [] Long length of stay [] ICU visit [] Other: Relational/Emotional Strength [x] Patient feels connected with others/family/visitors/staff [] Distress [] Loneliness/isolation [] Abandonment Spirituality of Patient [x] Person of Elizabet [] Attends Christianity of their Elizabet [x] Believes in Prayer [] Reads Bible or Protestant materials [] There are Spiritual issues to be addressed Ear Nose Throat Physician Interventions [x] Prayer [x] Active listening [x] Non-anxious presence [x] Spiritual/emotional support [] Crisis/trauma care [] Spiritual counseling [] Bereavement support [] Provided bereavement packet [] Provided Bible/devotional materials [] Provided toy/stuffed animal, coloring book to patient or family member [] Provided Communion [] Anointing/[place] [] Salvation [x] Completed spiritual assessment [] Other: Impact on Illness or Injury [] Angry [] Fearful [] Anxious [] Often cries [] Exhaustion [] Unable to work [] Unable to attend mosque [] Unable to walk/stand [] Unable to read [] Unable to drive [] Unable to eat/drink [] Unable to sleep [] Unable to be with family [] Patient intubated [] Other: Summary Time spent with patient 5 min
--- NOTE | 2024-09-18 09:40 | PC.SOCIAL ---
IMM Update Pg. 2 of IMM updated and copy provided at bedside.
[2024-09-18 10:46] LABS: Glucose Point of Care 119 mg/dL (70-110)
--- NOTE | 2024-09-18 14:27 | PM.PN ---
Subjective Subjective: Ms. hamilton was evaluated at bedside on [facility] today. She reports she is feeling better overall. Denies fevers, chills, nausea, vomiting. Patient had Curtis bandages on midportion of bilateral lower extremities. Dressings to lower extremities are clean dry and in place upon arrival. She has palpable dorsalis pedis pulses bilaterally. Vitals/I&O/Wt Last Vital Signs Temp 97.4 F L 09/18/24 12:00 Pulse 65 09/18/24 13:02 Resp 16 09/18/24 12:00 BP 133/63 09/18/24 12:00 Pulse Ox 95 09/18/24 13:03 O2 Del Method Nasal Cannula 09/18/24 13:03 O2 Flow Rate 2 09/18/24 13:03 09/17/24 09/18/24 09/18/24 22:59 06:59 14:59 Intake Total 370 / 850 730 / 730 Output Total 2200 / 3200 1750 / 1750 Balance -1830 / -2350 -1020 / -1020 Weight last 48 hrs Weight 130.635 kg Weight 123.377 kg Physical Exam Const: COMMON NORMALS: no acute distress, patient oriented x3 and alert GENERAL APPEARANCE: cooperative and disheveled NUTRITIONAL APPEARANCE: obese ORIENTATION/CONSCIOUSNESS: Yes awake, Yes oriented to person, Yes oriented to place and Yes oriented to time HENMT: COMMON NORMALS: normocephalic, atraumatic, hearing grossly normal bilaterally and Normal external nose present HEAD & SCALP: normocephalic and atraumatic NOSE: Normal external nose present Eye: GENERAL EYE: appearance normal, both eyes and all related structures Neck/C-Spine: GENERAL: Yes trachea midline Chest: CHEST: Yes Symmetrical chest wall rise Cardio: COMMON NORMALS: regular rate (68 on Doppler) and regular rhythm RATE: regular rate (68 on Doppler) RHYTHM: regular rhythm PERIPHERAL PULSES: dorsalis pedis present positive bilateral other (Palpable) OTHER: Capillary refill less than 3 seconds in distal digits of bilateral feet Extremity: OTHER: Bilateral lower extremity 2+ pitting edema, in areas of Curtis wrap edema is less; erythema to bilateral lower extremities is decreased; scaling, hyperpigmentation, papillomas, and hyperkeratosis noted to bilateral lower extremities Neuro: COMMON NORMALS: patient oriented x3 SENSORIUM/ORIENTATION: Yes alert, Yes oriented to person, Yes oriented to place and Yes oriented to time SPEECH: speech normal Psych: COMMON NORMALS: mental status grossly normal, Normal thought process present, cooperative, normal affect and speech normal ATTITUDE: Yes calm and Yes engaged ACTIVITY/MOTOR BEHAVIOR: Yes appropriate eye contact SPEECH: Yes normal speech THOUGHT PROCESS: Normal thought process present THOUGHT CONTENT: Yes Normal thought content present JUDGEMENT: Good judgement present (Psych) Skin: OTHER: See wound assessment Data 09/18/24 06:07 09/18/24 06:07 Micro: Microbiology 09/15/24 13:23 Gram Stain - Final Leg - #1 Wound Culture - Final Enterobacter cloacae Klebsiella oxytoca Streptococcus group c Staphylococcus aureus A&P Assessment and plan (1) Lymphedema: (2) Wound infection: (3) Open wound of left lower leg with complication: (4) Open wound of right lower leg with complication: Plan Open wounds to left and right lower leg complicated by infection are improving. Both measure smaller today. Decreased erythema. Decreased lower extremity edema in areas where Curtis bandages were wrapped. Will recommend Santyl to promote enzymatic debridement until time of discharge. This should be applied to wounds once daily covered with gauze, ABD pad, and secured with Kerlix. Will use Curtis bandages wrapped lightly from base of toes to just below knee. Unfortunately, Ms. Hamilton reports she will be unable to come to our outpatient wound center for follow-up treatment for open wounds due to transportation and financial issues. She would benefit from home health services given her lack of mobility. Will potentially transition to Hydrofera Blue in order for dressing changes to be spaced out to 2 times per week to facilitate home health services. Her son is a teachable caregiver. Vascular ultrasound revealed a degree of stenosis throughout arteries of bilateral lower extremities. Biphasic waveforms were appreciated. Report revealed suspected severe stenosis of the left common femoral artery. Dr. Cooper reports he will have patient follow-up with Dr. Patterson outpatient for further evaluation and treatment. Wound cultures taken in the emergency room have resulted with Enterobacter Clocae, Klebsiella oxytoca, Streptococcus group C, and Staphylococcus aureus. On IV vancomycin and ceftriaxone. Ms. Hamilton was educated to elevate her legs frequently to prevent and control swelling. She should position her legs above the level of her heart if possible, using pillows or a wedge for support, for about 15-30 minutes, 3-4 times at the very minimum. Smoking cessation is encouraged Physical exam findings of the lower extremities are congruent with chronic, longstanding lymphedema. Stasis dermatitis/venous insufficiency could also be contributory to the nonhealing nature of these wounds. Wound care will follow-up tomorrow prior to discharge. PDMP PDMP Reviewed: Not Reviewed Attestations Medical Necessity Statement*: Ongoing wound care Time Spent in Patient Care: 16 - 35 minutes Coding Level of Care Code Acute Code for Chg Fwd Diagnoses Lymphedema I89.0 Wound infection T14.8XXA; L08.9 Open wound of left lower leg with complication S81.802A Open wound of right lower leg with complication S81.801A Wound Assessment Wound Assessment Wound Number 1 Lower Leg: Cluster Wound: Yes Descriptor: Left Primary Etiology: Lymphedema Length (cm): 0.3 cm Width (cm): 6.5 cm Depth (cm): 0.2 cm Epithelialization: None Tunneling: No Undermining: No Exudate Amount: Medium Drainage Type: Serosanguineous Foul Odor After Cleansing: No Slough/Fibrin?: Yes Granulation Amount: Medium (34-66%) Granulation Quality: [place] Necrotic Amount: Medium (34-66%) Necrotic Type: Adherent Slough Wound Number 2 Lower Leg: Descriptor: Right Primary Etiology: Lymphedema Length (cm): 0.4 cm Width (cm): 3.4 cm Depth (cm): 0.2 cm Epithelialization: None Tunneling: No Undermining: No Exudate Amount: Medium Drainage Type: Serosanguineous Foul Odor After Cleansing: No Slough/Fibrin?: Yes Granulation Amount: Small (1-33%) Granulation Quality: [place] Necrotic Amount: Medium (34-66%) Necrotic Type: Adherent Slough Wound Orders All Wounds: Dressing change frequency: Daily Wound Cleansing: Saline Skin Barriers/[place]-Wound Care: Vitamin A&D Ointment Primary Wound Care Dressing: Santyl Secondary Wound Care Dressing: Gauze, ABD pad, Kerlix Edema Control: Elevate legs to heart level for 30 mins daily and/or when sitting and Other Edema Control Order/Instructions (Curtis bandage from base of toes to just below knee ) Additional Orders: No adhesives on skin
--- NOTE | 2024-09-18 14:53 | P.PN_ITS ---
Subjective 2 Subjective: Patient was seen this morning, she continues to complain of shortness of breath, reports edema, anasarca Vitals/I&O/Wt Last Vital Signs Temp 97.4 F L 09/18/24 12:00 Pulse 65 09/18/24 13:02 Resp 16 09/18/24 12:00 BP 133/63 09/18/24 12:00 Pulse Ox 95 09/18/24 13:03 O2 Del Method Nasal Cannula 09/18/24 13:03 O2 Flow Rate 2 09/18/24 13:03 09/17/24 09/18/24 09/18/24 22:59 06:59 14:59 Intake Total 370 / 850 730 / 730 Output Total 2200 / 3200 1750 / 1750 Balance -1830 / -2350 -1020 / -1020 Weight last 48 hrs Weight 130.635 kg Weight 123.377 kg Physical Exam 2 Const: COMMON NORMALS: no acute distress and patient oriented x3 Resp: COMMON NORMALS: normal respiratory effort, No retractions and No use of accessory muscles Cardio: COMMON NORMALS: regular rate, regular rhythm, S1 normal heart sound present and S2 normal heart sound present RATE: regular rate RHYTHM: r egular rhythm HEART SOUNDS: S1 normal heart sound present and S2 normal heart sound present GI: COMMON NORMALS: Normal to inspection, nondistended, normoactive bowel sounds present and non-tender Extremity: NARRATIVE EXTREMITY EXAM: 2+ pitting edema, anasarca Neuro: COMMON NORMALS: patient oriented x3 Psych: COMMON NORMALS: mental status grossly normal Urinary Catheter Management: Dubois: Cath Placed During This Visit: yes Reason for Continuing Indwelling Catheter: Accurate Measurement of Urinary Output in Critically Ill Patients Urinary Catheter Date of Insertion: 09/15/24 Urinary Catheter Time of Insertion: 18:17 Data 09/18/24 06:07 09/18/24 06:07 Micro: Microbiology 09/15/24 13:23 Gram Stain - Final Leg - #1 Wound Culture - Final Enterobacter cloacae Klebsiella oxytoca Streptococcus group c Staphylococcus aureus A&P Assessment and plan (1) CHF exacerbation: (2) Atrial fibrillation/flutter: (3) Stasis dermatitis: (4) Morbid obesity: (5) Cellulitis: (6) Wound infection: (7) COPD (chronic obstructive pulmonary disease): (8) Lymphedema: Plan Bilateral lower extremity cellulitis - With multiple patchy areas of wounds - With concerns for diabetic wounds/ulcer -With history of stasis dermatitis, lymphedema -Sed rate 89 Plan - Wound care, wet-to-dry will consult wound care tomorrow once they are on service - Consult general surgery for debridement, status post blunt/sharp debridement at bedside -Consult wound care - Wound cultures growing Enterobacter, Klebsiella, staph follow-up - Blood cultures - Continue ciprofloxacin, continue doxycycline Bilateral extremity edema, -5 L -Continue Bumex 1 mg IV twice daily, 1 dose metolazone today CKD, monitor renal function Morbid obesity Type 2 diabetes mellitus, A1c 5.9, low-dose sliding scale Atrial fibrillation/flutter, continue Eliquis, metoprolol held due to bradycardia UTI, urine positive for nitrites, de-escalate to Cipro PAD US/[place] [id number] IMPRESSION: 1. Right common femoral, superficial femoral, profunda femoral, popliteal, posterior tibial and dorsalis pedis arteries demonstrate biphasic waveforms reflecting a degree of stenosis. 2. Left common femoral, superficial femoral, profunda femoral, popliteal, posterior tibial and dorsalis pedis arteries demonstrate biphasic waveforms reflecting a degree of stenosis. Severe stenosis is suspected at the left common femoral artery, and an elevated peak systolic velocity of 323 cm/s. Consider correlation with lower extremity CT angiogram. - Continue Doppler pulses - Patient will follow-up with vascular/cardiology as outpatient Full code Eliquis for DVT prophylaxis Plan for today continue IV diuresis, continues to complain of shortness of breath fluid overload 1 dose metolazone PDMP PDMP Reviewed: Not Reviewed Attestations 2 Medical Necessity Statement*: Patient requires hospitalization bilateral extreme cellulitis, fluid overload Diagnoses CHF exacerbation I50.9 Atrial fibrillation/flutter I48.91; I48.92 Stasis dermatitis I87.2 Morbid obesity E66.01 Cellulitis L03.90 Wound infection T14.8XXA; L08.9 Chronic obstructive pulmonary disease, unspecified COPD type J44.9 COPD type: unspecified COPD Lymphedema I89.0
[2024-09-18 16:42] LABS: Glucose Point of Care 143 mg/dL (70-110)
[2024-09-18] MEDS: pantoprazole 40 mg SDV IVP (17:00)
[2024-09-18] MEDS: doxycycline 100 mg Tablet PO (17:00)
[2024-09-18] MEDS: metOLazone 5 MG Tablet PO (17:00)
[2024-09-18 20:36] LABS: Glucose Point of Care 156 mg/dL (70-110)
[2024-09-18] MEDS: ciprofloxacin 500 mg Tablet PO (20:52)
[2024-09-19] VITALS: BP 153/72; PULSE 60; RESP 16; TEMP 36.4; O2SAT 93
[2024-09-19 04:00] VITALS: BP 148/61; PULSE 61; RESP 16; TEMP 36.5; O2SAT 90
[2024-09-19] MEDS: bumetanide 0.25 mg/mL SDV 4 mL 1 MG IVP (04:19)
[2024-09-19 06:06] LABS: Basophils # 0.1 10^3/uL (0.0-0.1); Basophils % 0.6 %; Eosinophils # 0.3 10^3/uL (0.0-0.8); Eosinophils % 3.5 %; Lymphocytes # 1.8 10^3/uL (0.8-4.8); Lymphocytes % 18.7 %; Mean Corpuscular HGB Conc 31.1 g/dL (30-55); Mean Corpuscular Hemoglobin 25.2 pg (27-33); Mean Platelet Volume 9.2 fL (7.4-10.4); Monocytes # 0.7 10^3/uL (0.2-0.9); Monocytes % 6.8 %; Neutrophils # 6.85 10^3/uL (1.8-7.7); Neutrophils % 69.9 %; Nucleated Red Blood Cells % 0 %; Platelet Count 322 10^3/cmm (157-399); Red Blood Count 4.32 10^6/uL (3.85-5.65); Red Cell Distribution Width 17.4 % (12.1-15.1)
[2024-09-19 06:27] LABS: Blood Urea Nitrogen 16 mg/dL (8-23); Carbon Dioxide 30 mmol/L (22-29); Chloride 93 mmol/L (98-107); Glomerular Filtration Rate 62.1 mL/min (90-130); Glucose 98 mg/dL (65-115); Osmolality Calculated 283 mOsm/kg (285-295); Sodium 136 mmol/L (136-145)
[2024-09-19 06:30] LABS: Glucose Point of Care 121 mg/dL (70-110)
[2024-09-19 06:34] LABS: Anion Gap 16.4 (5-19); Potassium 3.4 mmol/L (3.5-5.1)
--- NOTE | 2024-09-19 08:20 | PM.PN ---
Subjective Subjective: [facility] Bandages were in place to lower extremities and clean and dry. Vitals/I&O/Wt Last Vital Signs Temp 97.7 F 09/19/24 04:00 Pulse 61 09/19/24 04:00 Resp 16 09/19/24 04:00 BP 148/61 09/19/24 04:00 Pulse Ox 90 09/19/24 04:00 O2 Del Method Room Air 09/19/24 04:00 O2 Flow Rate 2 09/18/24 13:03 09/18/24 09/19/24 09/19/24 22:59 06:59 14:59 Intake Total 530 / 1260 720 / 1980 Output Total 4700 / 6450 Balance 530 / -490 -3980 / -4470 Weight last 48 hrs Weight 128.508 kg Weight 130.635 kg Physical Exam Const: COMMON NORMALS: no acute distress, patient oriented x3 and alert GENERAL APPEARANCE: cooperative and disheveled NUTRITIONAL APPEARANCE: obese ORIENTATION/CONSCIOUSNESS: Yes awake, Yes oriented to person, Yes oriented to place and Yes oriented to time HENMT: COMMON NORMALS: normocephalic, atraumatic, hearing grossly normal bilaterally and Normal external nose present HEAD & SCALP: normocephalic and atraumatic NOSE: Normal external nose present Eye: GENERAL EYE: appearance normal, both eyes and all related structures Neck/C-Spine: GENERAL: Yes trachea midline Chest: CHEST: Yes Symmetrical chest wall rise Cardio: COMMON NORMALS: regular rate RATE: regular rate PERIPHERAL PULSES: dorsalis pedis present positive bilateral other (Palpable) OTHER: Capillary refill less than 3 seconds in distal digits of bilateral feet Extremity: OTHER: Bilateral lower extremity has decreased; erythema to bilateral lower extremities is nearly resolved; scaling, hyperpigmentation, papillomas, and hyperkeratosis noted to bilateral lower extremities Neuro: COMMON NORMALS: patient oriented x3 SENSORIUM/ORIENTATION: Yes alert, Yes oriented to person, Yes oriented to place and Yes oriented to time SPEECH: speech normal Psych: COMMON NORMALS: mental status grossly normal, Normal thought process present, cooperative, normal affect and speech normal ATTITUDE: Yes calm and Yes engaged ACTIVITY/MOTOR BEHAVIOR: Yes appropriate eye contact SPEECH: Yes normal speech THOUGHT PROCESS: Normal thought process present THOUGHT CONTENT: Yes Normal thought content present JUDGEMENT: Good judgement present (Psych) Skin: OTHER: See wound assessment Data 09/19/24 05:39 09/19/24 05:39 Micro: Microbiology 09/15/24 13:23 Gram Stain - Final Leg - #1 Wound Culture - Final Enterobacter cloacae Klebsiella oxytoca Streptococcus group c Staphylococcus aureus A&P Assessment and plan (1) Lymphedema: (2) Wound infection: (3) Open wound of left lower leg with complication: (4) Open wound of right lower leg with complication: Plan Open wounds to left and right lower leg complicated by infection continue to improve. Erythema to lower extremities is resolving and no warmth is appreciated upon palpation. Edema to lower extremities is decreased as well. Ana has done an excellent job of cleaning up the wound beds. There is increasing granulation within both wound beds and minimal slough. Will now transition to Hydrofera Blue to the wounds. This should be changed every other day. Case management is working to get home health to help with dressing changes 2 times a week. She reports her son will be able to do the dressing changes the other required day(s). Will use Curtis bandages wrapped lightly from base of toes to just below knee. Wound cultures resulted with Enterobacter Clocae, Klebsiella oxytoca, Streptococcus group C, and Staphylococcus aureus. She is being discharged home with oral Cipro and doxycycline. Ms. Bird was educated to elevate her legs frequently to prevent and control swelling. She should position her legs above the level of her heart if possible, using pillows or a wedge for support, for about 15-30 minutes, 3-4 times at the very minimum. Smoking cessation is encouraged Physical exam findings of the lower extremities are congruent with chronic, longstanding lymphedema. Stasis dermatitis/venous insufficiency could also be contributory to the nonhealing nature of these wounds. It would be in her best interest to come to [facility] for ongoing wound treatment to prevent further infection or complication, though she states she is unable due to transportation and financial issues. She was educated to follow up with her PCP regarding ongoing wound care. Wound care will sign off. PDMP PDMP Reviewed: Not Reviewed Attestations Medical Necessity Statement*: Ongoing wound care Time Spent in Patient Care: 16 - 35 minutes Coding Level of Care Code Acute Code for [facility] Diagnoses Lymphedema I89.0 Wound infection T14.8XXA; L08.9 Open wound of left lower leg with complication S81.802A Open wound of right lower leg with complication S81.801A Wound Assessment Wound Assessment Wound Number 1 Lower Leg: Cluster Wound: Yes Descriptor: Left Primary Etiology: Lymphedema Length (cm): 0.3 cm Width (cm): 6.3 cm Depth (cm): 0.2 cm Epithelialization: None Tunneling: No Undermining: No Exudate Amount: Medium Drainage Type: Serosanguineous Foul Odor After Cleansing: No Slough/Fibrin?: Yes Granulation Amount: Medium (34-66%) Granulation Quality: Red and [place] Necrotic Amount: Small (1-33%) Necrotic Type: Adherent Slough Wound Number 2 Lower Leg: Descriptor: Right Primary Etiology: Lymphedema Length (cm): 0.3 cm Width (cm): 2.8 cm Depth (cm): 0.2 cm Epithelialization: Small (1-33%) Tunneling: No Undermining: No Exudate Amount: Medium Drainage Type: Serosanguineous Foul Odor After Cleansing: No Slough/Fibrin?: Yes Granulation Amount: Medium (34-66%) Granulation Quality: [place] Necrotic Amount: Small (1-33%) Necrotic Type: Adherent Slough Wound Orders All Wounds: Duration: 14 Days Dressing change frequency: Every Other Day Wound Cleansing: Saline Skin Barriers/Antonette-Wound Care: Vitamin A&D Ointment Primary Wound Care Dressing: Hydrofera Blue ready Secondary Wound Care Dressing: ABD pad, Kerlix Edema Control: Elevate legs to heart level for 30 mins daily and/or when sitting and Other Edema Control Order/Instructions (Curtis bandage from base of toes to just below knee ) Lower Extermity Assessment Notes
[2024-09-19] MEDS: potassium chloride ER 20 mEq Tablet 40 MEQ PO (08:56)
[2024-09-19] MEDS: metOLazone 5 MG Tablet PO (08:56)
[2024-09-19] MEDS: ciprofloxacin 500 mg Tablet PO (08:56)
[2024-09-19] MEDS: doxycycline 100 mg Tablet PO (08:56)
[2024-09-19] MEDS: levothyroxine 75 mcg Tablet PO (08:56)
[2024-09-19] MEDS: vitamin A & D oint 1 APPLIC TOPICAL (08:56)
[2024-09-19] MEDS: apixaban 5 mg Tablet PO (08:56)
[2024-09-19] MEDS: collagenase oint 30 gm 1 APPLIC TOPICAL (08:57)
[2024-09-19 10:40] LABS: Glucose Point of Care 139 mg/dL (70-110)
[2024-09-19 11:06] VITALS: BP 131/49; PULSE 44; RESP 17; TEMP 36.6; O2SAT 91
--- NOTE | 2024-09-19 11:24 | PM.DCS ---
Discharge Providers Date of Admission: 09/15/24 16:35 Date of Discharge: September 19, 2024 Attending Provider at Admission: Lm Cooper MD Attending Provider at Discharge: Lm Cooper MD Primary Care Provider: URVASHI Galeas Diagnoses at Discharge Discharge Diagnosis (1) Lymphedema: Status: Acute (2) Wound infection: Status: Acute (3) Open wound of left lower leg with complication: Status: Acute (4) Open wound of right lower leg with complication: Status: Acute Reason for Visit Reason for Visit: wounds on legs Hospital Course Hospital Course Odalis Bird is a 69 year old female with a past medical history of COPD, history of smoking, morbid obesity, hypertension, hypothyroidism, atrial fibrillation/flutter, lymphedema who presents to [facility] due to increased shortness of breath, increased lower extremity edema, with areas of her lower extremities bilaterally with increased erythema, pain, drainage. Patient denies any fevers, chills, no cough, no nausea, no vomiting, Patient was admitted to [facility] for bilateral lower extremity cellulitis, multiple patchy areas of wounds, with underlying stasis dermatitis, lymphedema, wound care was consulted, wound cultures growing Enterobacter, Klebsiella, staph, blood cultures so far no growth. Will be discharged on p.o. antibiotics, with wound care as outpatient, discussed wound care instructions in detail with patient For bilateral primary edema, anasarca, diastolic CHF she was diuresed over 9 L during her hospitalization - Will be discharged on Bumex 1 mg twice daily with potassium replacement therapy use of metolazone for weight gain more than 3 pounds - Or increased lower extremity edema For her atrial fibrillation, metoprolol was held due to bradycardia, follow-up with cardiology as outpatient PAD US/[place] [id number] IMPRESSION: 1. Right common femoral, superficial femoral, profunda femoral, popliteal, posterior tibial and dorsalis pedis arteries demonstrate biphasic waveforms reflecting a degree of stenosis. 2. Left common femoral, superficial femoral, profunda femoral, popliteal, posterior tibial and dorsalis pedis arteries demonstrate biphasic waveforms reflecting a degree of stenosis. Severe stenosis is suspected at the left common femoral artery, and an elevated peak systolic velocity of 323 cm/s. Consider correlation with lower extremity CT angiogram. -She has no complaints of left lower extremity pain, has more pain in her right lower extremity -She tells that she had some sort of vascular intervention in the past in the left lower extremity -She continues to have Doppler pulses during hospitalization - On discharge she has DP PT pulses bilaterally present, no pain, no pallor, no pulselessness - Patient will follow-up with vascular/cardiology as outpatient for consideration of intervention as outpatient -Patient was advised if she were to have any sudden onset of pain/pallor/Blue Lower Extremity/Pulselessness this is an emergency to immediately come to the emergency room -Continue josé luis Pizano Physical Exam Const: COMMON NORMALS: no acute distress and patient oriented x3 Resp: COMMON NORMALS: normal respiratory effort, No retractions, No use of accessory muscles and clear to auscultation bilaterally AUSCULTATION: clear to auscultation bilaterally Cardio: COMMON NORMALS: regular rate, regular rhythm, S1 normal heart sound present and S2 normal heart sound present RATE: regular rate RHYTHM: regular rhythm HEART SOUNDS: S1 normal heart sound present and S2 normal heart sound present GI: COMMON NORMALS: Normal to inspection, nondistended, normoactive bowel sounds present and non-tender Extremity: NARRATIVE EXTREMITY EXAM: 1+ edema Multiple superficial wounds in various stages of healing bilateral extremities, Bilateral DP PT pulses palpable Neuro: COMMON NORMALS: patient oriented x3 Psych: COMMON NORMALS: mental status grossly normal Urinary Catheter Management: Dubois: Cath Placed During This Visit: yes Reason for Continuing Indwelling Catheter: Accurate Measurement of Urinary Output in Critically Ill Patients Urinary Catheter Date of Insertion: 09/15/24 Urinary Catheter Time of Insertion: 18:17 Discharge Data Studies Completed and Pending Completed Studies During Hospitalization Category Date Time Status XR tibia fibula LT 2V 20350 Stat Exams 09/15/24 17:45 Completed XR tibia fibula RT 2V [id number] Stat Exams 09/15/24 17:45 Completed US arterial duplex lower extremity bilat [CV arterial Ultrasound 09/16/24 16:00 [place] [id number]] Routine Pending at discharge Category Date Time Status Basic Metabolic Panel AM LABS Lab 09/20/24 04:00 Ordered Basic Metabolic Panel AM LABS Lab 09/21/24 04:00 Ordered Blood Culture Stat Lab 09/15/24 13:09 Results Complete Blood Count w/Auto AM LABS Lab 09/20/24 04:00 Ordered Complete Blood Count w/Auto AM LABS Lab 09/21/24 04:00 Ordered Radiology Impressions Tibia/Fibula X-Ray 09/15/24 17:45 IMPRESSION: No evidence of acute fracture or dislocation. Duplex Scan Lower Extremity Artery 09/16/24 16:00 IMPRESSION: 1. Right common femoral, superficial femoral, profunda femoral, popliteal, posterior tibial and dorsalis pedis arteries demonstrate biphasic waveforms reflecting a degree of stenosis. 2. Left common femoral, superficial femoral, profunda femoral, popliteal, posterior tibial and dorsalis pedis arteries demonstrate biphasic waveforms reflecting a degree of stenosis. Severe stenosis is suspected at the left common femoral artery, and an elevated peak systolic velocity of 323 cm/s. Consider correlation with lower extremity CT angiogram. Laboratory Results WBC 9.80 10^3/uL (3.29-11.43) 09/19/24 05:39 RBC 4.32 10^6/uL (3.85-5.65) 09/19/24 05:39 Hgb 10.90 g/dL (11.27-16.99) L 09/19/24 05:39 Hct 35.0 % (36-47) L 09/19/24 05:39 MCV 81.0 fl (85-98) L 09/19/24 05:39 MCH 25.2 pg (27-33) L 09/19/24 05:39 MCHC 31.1 g/dL (30-55) 09/19/24 05:39 RDW 17.4 % (12.1-15.1) H 09/19/24 05:39 Plt Count 322 10^3/cmm (157-399) 09/19/24 05:39 MPV 9.2 fL (7.4-10.4) 09/19/24 05:39 Neut % (Auto) 69.9 % 09/19/24 05:39 Lymph % (Auto) 18.7 % 09/19/24 05:39 [place] % (Auto) 6.8 % 09/19/24 05:39 Eos % (Auto) 3.5 % 09/19/24 05:39 Baso % (Auto) 0.6 % 09/19/24 05:39 Neut # (Auto) 6.85 10^3/uL (1.8-7.7) 09/19/24 05:39 Lymph # (Auto) 1.8 10^3/uL (0.8-4.8) 09/19/24 05:39 [place] # (Auto) 0.7 10^3/uL (0.2-0.9) 09/19/24 05:39 Eos # (Auto) 0.3 10^3/uL (0.0-0.8) 09/19/24 05:39 Baso # (Auto) 0.1 10^3/uL (0.0-0.1) 09/19/24 05:39 Nucleated RBC % (auto) 0 % 09/19/24 05:39 Nucleated RBCs # 0.0 /100WBC 09/19/24 05:39 ESR 89 mm/hr (0-15) H 09/15/24 13:16 Sodium 136 mmol/L (136-145) 09/19/24 05:39 Potassium 3.4 mmol/L (3.5-5.1) L 09/19/24 05:39 Chloride 93 mmol/L (98-107) L 09/19/24 05:39 Carbon Dioxide 30 mmol/L (22-29) H 09/19/24 05:39 Anion Gap 16.4 (5-19) 09/19/24 05:39 BUN 16 mg/dL (8-23) 09/19/24 05:39 Creatinine 0.9 mg/dL (0.5-0.9) 09/19/24 05:39 GFR Calculation 62.1 mL/min (90-130) L 09/19/24 05:39 Glucose 98 mg/dL (65-115) 09/19/24 05:39 POC Glucose 139 mg/dL (70-110) H 09/19/24 10:37 Estimat Average Glucose 123 09/15/24 13:16 Hemoglobin A1c 5.9 % (4.0-6.0) 09/15/24 13:16 Calculated Osmolality 283 mOsm/kg (285-295) L 09/19/24 05:39 Lactic Acid 2.1 mmol/L (0.5-2.2) 09/15/24 13:16 Lactic Acid (Sepsis) 0.9 mmol/L (0.5-2.2) 09/15/24 16:34 Calcium 9.0 mg/dL (8.5-10.5) 09/19/24 05:39 Total Bilirubin 0.2 mg/dL (0.15-1.2) 09/18/24 06:07 AST 9 U/L (0-32) 09/18/24 06:07 ALT 8 U/L (0-33) 09/18/24 06:07 Alkaline Phosphatase 93 U/L (35-105) 09/18/24 06:07 C-Reactive Protein 54.2 mg/L (0.0-4.9) H 09/15/24 13:09 NT-Pro-B Natriuret Pep 86 pg/mL (0-125) 09/15/24 13:09 Total Protein 6.6 g/dL (6.6-8.7) 09/18/24 06:07 Albumin 3.1 g/dL (3.5-5.2) L 09/18/24 06:07 Globulin 3.5 g/dL (1.3-4.6) 09/18/24 06:07 Triglycerides 89 mg/dL (0-150) 09/15/24 13:09 Cholesterol 187 mg/dL (0-200) 09/15/24 13:09 LDL Cholesterol, Calc 120 mg/dL (50-129) 09/15/24 13:09 HDL Cholesterol 49 mg/dL (60-100) L 09/15/24 13:09 LDL/HDL Ratio 2.45 RATIO (0.00-3.22) 09/15/24 13:09 Cholesterol/HDL Ratio 3.82 mg/dL (0.0-4.40) 09/15/24 13:09 Procalcitonin 0.05 ng/mL (0-0.5) 09/15/24 13:16 TSH 3.79 uIU/mL (0.27-4.20) 09/15/24 13:09 Urine Color Yellow (Yellow) 09/15/24 Unknown Urine Appearance Clear (CLEAR) 09/15/24 Unknown Urine pH 5.5 (5-7) 09/15/24 Unknown Ur Specific [place]ice 1.006 (1.005-1.030) 09/15/24 Unknown Urine Protein Negative (Negative) 09/15/24 Unknown Urine Glucose (UA) Negative (Normal) 09/15/24 Unknown Urine Ketones Negative (Negative) 09/15/24 Unknown Urine Blood Negative (Negative) 09/15/24 Unknown Urine Nitrate Positive (Negative) A 09/15/24 Unknown Urine Bilirubin Negative (Negative) 09/15/24 Unknown Urine Urobilinogen 0.2 mg/dL (Negative) 09/15/24 Unknown Ur Leukocyte Esterase Negative (Negative) 09/15/24 Unknown Urine RBC 0-2 /hpf (0-2) 09/15/24 Unknown Urine WBC 0-5 /hpf (0-5) 09/15/24 Unknown Ur Squamous Epith Cells 0-5 /hpf (0-5) 09/15/24 Unknown Amorphous Sediment Not Reportable 09/15/24 Unknown Urine Bacteria None seen /hpf (NONE) 09/15/24 Unknown Hyaline Casts 0.40 /lpf 09/15/24 Unknown Vancomycin Trough 22.4 ug/mL (10-15) H 09/17/24 05:04 Vitals Last Vital Signs Temp 97.8 F 09/19/24 11:06 Pulse 44 L 09/19/24 11:06 Resp 17 09/19/24 11:06 BP 131/49 09/19/24 11:06 Pulse Ox 91 09/19/24 11:06 O2 Del Method Room Air 09/19/24 04:00 O2 Flow Rate 2 09/18/24 13:03 Discharge Plan Discharge Patient Disposition: Home Condition: Stable Prescriptions: New ciprofloxacin HCl 500 mg Tablet 500 mg PO BID@0900,2100 5 Days Qty: 10 0RF doxycycline monohydrate 100 mg Tablet 100 mg PO BID 5 Days Qty: 10 0RF potassium chloride [Klor-Con 10] 10 mEq tablet extended release 10 meq PO BID 30 Days Qty: 60 0RF atorvastatin [Lipitor] 40 mg tablet 40 mg PO DAILY 30 Days Qty: 30 0RF metolazone 5 mg tablet 5 mg PO DAILY PRN (Reason: weight gain more than 3lbs, SOB or LE edema) 30 Days Qty: 30 0RF Rx Instructions: when you take medication, please with 10meq of klorcon Continued Eliquis 5 mg tablet 5 mg PO BID Qty: 60 0RF levothyroxine 75 mcg tablet 75 mcg PO DAILY Qty: 30 0RF metformin 500 mg tablet 500 mg PO BID Qty: 180 0RF Mounjaro 5 mg/0.5 mL pen injector 5 mg SUBCUT Q7D Changed bumetanide 2 mg tablet 1 mg PO BID 30 Days Qty: 30 0RF Discontinued metolazone 5 mg tablet 5 mg PO DAILY Qty: 30 0RF metoprolol succinate 50 mg tablet extended release 24 hr 50 mg PO DAILY Qty: 30 0RF Discharge Orders: Discharge Order (Routine); Ordered 09/19/24 Ordered By: Lm Cooper Referrals: Warner Ibanez M.D [Physician, Cardiology] - 1 week Referral Note: afib, chf, PAD Sherrell Lakhani, [employer] MANAGER [Primary Care Provider, Family Practice] Discharge Diet: Cardiac Discharge Activity: Resume usual activity Patient Instructions: Ciprofloxacin (By mouth), Doxycycline (By mouth), Potassium Supplement (By mouth) (Klor-Con, Klor-Con 10, K-Tab, K-Vescent), Atorvastatin (By mouth), Opioid Safety, Patient Portal & Galo Instructions Activity Restrictions/Additional Instructions: Wound Orders All Wounds: Left lower leg, right lower leg Duration: 14 days Dressing change frequency: Every Other Day Wound Cleansing: Saline Skin Barriers/Antonette-Wound Care: Vitamin A&D Ointment Primary Wound Care Dressing: Hydrofera Blue ready Secondary Wound Care Dressing: Soft form stretch gauze, Curtis bandage Edema Control: Elevate legs to heart level for 30 mins daily and when sitting Curtis bandage should be wrapped lightly from base of toes to just below knee. Patient's Health Concerns: - Limit fluid intake to 1 L of fluid a day - Please take Bumex 1 mg twice daily with potassium replacement therapy - Please follow-up with primary care provider - For your peripheral vascular disease follow-up with cardiology - For atrial fibrillation due to slow heart rate I have held your metoprolol - Follow-up with cardiology for decision if and when to resume your metoprolol Discharge Attestations Time Spent in Discharge Care*: greater than 30 min Quality Metrics Clinical Quality Measures [ No reported AMI, CVA or VTE this stay] Coding Level of Care Code 72150 Total time (in minutes) for Discharge: 45 Diagnoses Lymphedema I89.0 Wound infection T14.8XXA; L08.9 Open wound of left lower leg with complication S81.802A Open wound of right lower leg with complication S81.801A
[2024-09-19 11:39] VITALS: BP 131/49; PULSE 44; RESP 17; TEMP 36.6; O2SAT 91
== END 2024-09-19 14:34 | disposition home health service (06) | DRG 291 ==
LOC: ER 14:56 → MEDSURG 09-16 07:11
PROVIDERS: Emergency Medicine; Admitting Provider Family Medicine; Emergency Provider Student in an Organized Health Care Education/Training Program; PCP Nurse Practitioner; Visit Provider Family Medicine
DX: I13.0 Hypertensive heart and chronic kidney disease with heart failure and stage 1 through stage 4 chronic kidney disease, or unspecified chronic kidney disease (principal); I50.33 Acute on chronic diastolic (congestive) heart failure; L03.115 Cellulitis of right lower limb; L97.911 Non-pressure chronic ulcer of unspecified part of right lower leg limited to breakdown of skin; L97.921 Non-pressure chronic ulcer of unspecified part of left lower leg limited to breakdown of skin; L03.116 Cellulitis of left lower limb; N39.0 Urinary tract infection, site not specified; Z68.43 Body mass index [BMI] 50.0-59.9, adult; I87.2 Venous insufficiency (chronic) (peripheral); E11.22 Type 2 diabetes mellitus with diabetic chronic kidney disease; F17.210 Nicotine dependence, cigarettes, uncomplicated; N18.9 Chronic kidney disease, unspecified; I48.91 Unspecified atrial fibrillation; E66.01 Morbid (severe) obesity due to excess calories; J44.9 Chronic obstructive pulmonary disease, unspecified; M47.9 Spondylosis, unspecified; E11.51 Type 2 diabetes mellitus with diabetic peripheral angiopathy without gangrene; Z79.01 Long term (current) use of anticoagulants
CPT/HCPCS: 36415; 36416; 51702; 73590; 80048; 80053; 80061; 80202; 81001; 82962; 83036; 83605; 83880; 84145; 84443; 85025; 85651; 86140; 87040; 87070; 87075; 87077; 87186; 87205; 93925; 94664; 96365; 96372; 96375; 99285; J0696; J1815; J2270; J2405; J2470; J3370; J3490; J7050; J9999